=== PATIENT | male | born 1955 | race Caucasian/White ===

== ENCOUNTER → 2017-09-20 | Outpatient (CLI) | payer OTHER ==
--- NOTE | 2017-09-21 15:28 | RADIOLOGY REPORT (SQ) ---
EXAM DESCRIPTION: CT CHEST WITH COMPLETED DATE/TIME: 09/20/2017 8:17 am REASON FOR STUDY: CHEST PAIN (R07.9), ABD PAIN (R10.9), PELVIC AND PERINEAL PAIN (R10.2) R07.9 CHES T PAIN, UNSPECIFIED R10.2 PELVIC AND PERINEAL PAIN R10.9 UNSPECIFIED ABDOMINAL PAIN COMPARISON: None. EXAM PARAMETERS: TECHNIQUE: CT scan of the chest performed using helical scanning technique with dyn amic intravenous contrast injection. Images reviewed with lung, soft tissue and bone windows. Recon structed coronal and sagittal MPR images reviewed. All images stored on PACS. All CT scanners at this facility use dose modulation, iterative reconstruction, and/or weight based d osing when appropriate to reduce radiation dose to as low as reasonably achievable (ALARA). [facility]: Dose Right [facility]: SureCare [facility]: Dose Right [facility]: Teradose 4D [facility]: [place] Anymoba CONTRAST TYPE AND DOSE: 74mL Isovue 370- low osmolar. RENAL FUNCTION: BUN 16 creatinine 0.77 RADIATION DOSE: mGy. LIMITATIONS: None. FINDINGS: LUNGS AND PLEURA: Significant centrilobular emphysematous changes. Pleural thickening med ially in the left apex with what appears to be associated scarring in the lung. HILAR AND MEDIASTINAL STRUCTURES: No identified masses or abnormal nodes. HEART AND VASCULAR STRUCTURES: No aneurysm or dissection. No central pulmonary emboli. No pericardi al effusion. HARDWARE: None. UPPER ABDOMEN: See report for CT of the abdomen and pelvis THYROID AND OTHER SOFT TISSUES: No masses. No adenopathy. BONES: No significant finding. OTHER: No other significant finding. IMPRESSION: 1. Centrilobular emphysematous changes. 2. There is a medial pleural thickening the left apex with associated scarring in the left upper lob e. Cannot entirely exclude neoplasm. Consider PET-CT for further evaluation. TECHNICAL DOCUMENTATION: JOB ID: [id number] [facility] [id number]: Final reports with documentation of one or more dose reduction techniques (e.g., Automate d exposure control, adjustment of the mA and/or kV according to patient size, use of iterative recons truction technique) 2010 [employer]- All Rights Reserved Reading location - IP/workstation name: [email or web address]
--- NOTE | 2017-09-21 15:29 | RADIOLOGY REPORT (SQ) ---
EXAM DESCRIPTION: CT ABD/PELVIS WITH IV ORAL COMPLETED DATE/TIME: 09/20/2017 8:17 am REASON FOR STUDY: CHEST PAIN (R07.9), ABD PAIN (R10.9), PELVIC AND PERINEAL PAIN (R10.2) R07.9 CHES T PAIN, UNSPECIFIED R10.2 PELVIC AND PERINEAL PAIN R10.9 UNSPECIFIED ABDOMINAL PAIN COMPARISON: None. EXAM PARAMETERS: TECHNIQUE: CT scan of the abdomen and pelvis performed with intravenous and oral co ntrast using helical scanning technique with dynamic intravenous contrast injection. Images reviewed with lung, soft tissue, and bone windows. Reconstructed coronal and sagittal MPR images reviewed. Del ayed images for evaluation of the urinary system also acquired. All images stored on PACS. All CT scanners at this facility use dose modulation, iterative reconstruction, and/or weight based d osing when appropriate to reduce radiation dose to as low as reasonably achievable (ALARA). [facility]: Dose Right [facility]: SureCare [facility]: Dose Right [facility]: Teradose 4D [facility]: Adify CONTRAST TYPE AND DOSE: 74mL Isovue 370- low osmolar. RENAL FUNCTION: BUN 16 creatinine 0.77 RADIATION DOSE: mGy. LIMITATIONS: None. FINDINGS: LOWER CHEST: See separate report for CT of the chest. LIVER: Normal size. No masses or dilated ducts. SPLEEN: Normal size. No focal lesions. PANCREAS: No masses. No significant calcifications. No adjacent inflammation or peripancreatic fluid collections. Pancreatic duct not dilated. GALLBLADDER: No identified stones by CT criteria. No inflammatory changes to suggest cholecystitis. ADRENAL GLANDS: No significant masses or asymmetry. RIGHT KIDNEY AND URETER: No solid masses. No significant calcifications. No hydronephrosis or hyd roureter. LEFT KIDNEY AND URETER: No solid masses. No significant calcifications. No hydronephrosis or hydr oureter. AORTA AND VESSELS: No aneurysm. No dissection. Renal arteries, SMA, celiac without stenosis. RETROPERITONEUM: No retroperitoneal adenopathy, hemorrhage or masses. BOWEL AND PERITONEAL CAVITY: No obstruction. No visualized masses. No free fluid. No inflammatory ch anges or thickening of bowel wall. APPENDIX: Normal. PELVIS: No significant masses. Normal bladder. No free fluid. ABDOMINAL WALL: No masses. No hernias. BONES: No significant or acute findings. OTHER: No other significant finding. IMPRESSION: NO SIGNIFICANT OR ACUTE FINDINGS IN THE ABDOMEN OR PELVIS. TECHNICAL DOCUMENTATION: JOB ID: [id number] [facility] [id number]: Final reports with documentation of one or more dose reduction techniques (e.g., Automate d exposure control, adjustment of the mA and/or kV according to patient size, use of iterative recons truction technique) 2010 [employer]- All Rights Reserved Reading location - IP/workstation name: [email or web address]
== END ==
LOC: RAD 07:30
PROVIDERS: ATTEND Internal Medicine
DX: R07.9 Chest pain, unspecified (principal); R10.2 Pelvic and perineal pain; R10.9 Unspecified abdominal pain
CPT/HCPCS: 71260; 74177

== ENCOUNTER → 2017-09-26 | Outpatient (CLI) | payer OTHER ==
--- NOTE | 2017-09-27 18:16 | RADIOLOGY REPORT (SQ) ---
EXAM DESCRIPTION: PET CT SKULL/THIGH COMPLETED DATE/TIME: 09/26/2017 7:15 pm REASON FOR STUDY: PULMONARY NODULE R91.1 SOLITARY PULMONARY NODULE COMPARISON: CT chest abdomen pelvis 09/20/2017 RADIONUCLIDE AND DOSE: 11 mCi F18 FDG The route of agent administration: Intravenous FASTING BLOOD SUGAR: 110 mg/dl CONTRAST TYPE AND DOSE: No CT contrast given. TECHNIQUE: Blood glucose level was verified. Above dose of FDG was injected intravenously. 2-D seg mented attenuation correction images were obtained from the base of the skull to the midthighs. Nonc ontrast CT images were obtained for attenuation correction and fusion with emission images. CT image s were performed without oral or intravenous contrast and are not sensitive for parenchymal lesions. A series of overlapping emission PET images were obtained. Images reviewed and manipulated at [facility] [employer] work station by the radiologist. Images stored on PACS. LIMITATIONS: None. FINDINGS: HEAD AND NECK: No areas of abnormal metabolic activity in the soft tissues of the head and neck. CHEST: In the medial left lung apex, left apical lung parenchymal scarring is present measuring about 1 cm in thickness. Along the inferior aspect of the bandlike scar, focal metabolic activity with NAVA V 2.1 is present. On axial image 80, a 1 x 0.8 cm aortopulmonary window lymph node is present with SUV 2.5. ABDOMEN AND PELVIS: No areas of abnormal metabolic activity in the abdomen or pelvis. Expected physi ologic activity is present in the genitourinary system and bowel. PROXIMAL LOWER EXTREMITIES: No areas of abnormal metabolic activity in the soft tissues of the lower extremities. BONES: No abnormal metabolic activity in the visualized skeleton. ADDITIONAL CT FINDINGS: Advanced changes of obstructive lung disease are present. OTHER: Liver background activity 2.2 SUV. Blood pool background activity 1.7 SUV IMPRESSION: Mild metabolic activity in the medial left lung apex bandlike scar. Malignancy could no t be excluded. 1 x 0.8 cm aortopulmonary window lymph node with mild metabolic activity. TECHNICAL DOCUMENTATION: JOB ID: [id number]- All Rights Reserved Reading location - IP/workstation name: [email or web address]
== END ==
LOC: RAD 17:23
PROVIDERS: ATTEND Internal Medicine
DX: R91.1 Solitary pulmonary nodule (principal)
CPT/HCPCS: 78815; A9552

== ENCOUNTER → 2017-10-01 | Outpatient (CLI) | payer OTHER ==
--- NOTE | 2017-10-01 10:33 | RADIOLOGY REPORT (SQ) ---
EXAM DESCRIPTION: NM MUGA REST COMPLETED DATE/TIME: 10/01/2017 10:24 am REASON FOR STUDY: Z13.6 ENCOUNTER FOR SCREENING FOR CARDIOVASCULAR DISORDERS Z13.6 ENCOUNTER FOR SC REENING FOR CARDIOVASCULAR DISORDERS C92.00 ACUTE MYELOBLASTIC LEUKEMIA, NOT HAVING ACHIEVED [place] COMPARISON: None. RADIONUCLIDE AND DOSE: 26.5 mCi technetium 99m labeled red blood cells The route of agent administration: Intravenous TECHNIQUE: Following administration of the radionuclide, gated images of the heart are obtained in t hree projections. Left ventricular functional analysis performed. LIMITATIONS: None. FINDINGS: LEFT VENTRICULAR FUNCTION: EJECTION FRACTION: 82%. END-DIASTOLIC VOLUME: 98 mL. END-SYSTOLIC VOLUME: 25 mL. WALL MOTION: No focal wall motion abnormalities. OTHER: No other significant finding. IMPRESSION: NORMAL CARDIAC MUGA STUDY. NORMAL LEFT VENTRICULAR FUNCTION WITH VALUES ABOVE. TECHNICAL DOCUMENTATION: JOB ID: [id number] [employer]- All Rights Reserved Reading location - IP/workstation name: [email or web address]
== END ==
LOC: RAD 08:26
PROVIDERS: ATTEND Internal Medicine
DX: C92.00 Acute myeloblastic leukemia, not having achieved remission (principal); Z13.6 Encounter for screening for cardiovascular disorders
CPT/HCPCS: 78472; A9560; Q9969

== ENCOUNTER → 2017-11-26 | Outpatient (CLI) | payer OTHER ==
--- NOTE | 2017-11-26 12:48 | RADIOLOGY REPORT (SQ) ---
EXAM DESCRIPTION: NM MUGA REST COMPLETED DATE/TIME: 11/26/2017 12:32 pm REASON FOR STUDY: ENCTR FOR F/U EXAM AFTER COMPLETED TX FOR MALIGNANT NEOPLASM (Z08) C92.00 ACUTE M YELOBLASTIC LEUKEMIA, NOT HAVING ACHIEVED [place] COMPARISON: CT chest 09/20/2017 RADIONUCLIDE AND DOSE: 25.6 mCi technetium 99m labeled red blood cells The route of agent administration: Intravenous TECHNIQUE: Following administration of the radionuclide, gated images of the heart are obtained in t hree projections. Left ventricular functional analysis performed. LIMITATIONS: None. FINDINGS: LEFT VENTRICULAR FUNCTION: EJECTION FRACTION: 61%. END-DIASTOLIC VOLUME: 90 mL. END-SYSTOLIC VOLUME: 30 mL. WALL MOTION: No focal wall motion abnormalities. OTHER: No other significant finding. IMPRESSION: NORMAL CARDIAC MUGA STUDY. NORMAL LEFT VENTRICULAR ejection fraction of 61% TECHNICAL DOCUMENTATION: JOB ID: [id number] [employer]- All Rights Reserved Reading location - IP/workstation name: [email or web address]
== END ==
LOC: RAD 10:42
PROVIDERS: ATTEND Physician Assistant Medical
DX: Z08 Encounter for follow-up examination after completed treatment for malignant neoplasm (principal); C92.00 Acute myeloblastic leukemia, not having achieved remission
CPT/HCPCS: 78472; A9560

== ENCOUNTER 2017-12-07 12:19 | Outpatient (CLI) | payer OTHER ==
[~2017-12-07 12:19] MED LIST: PEGFILGRASTIM INJ 6 MG/0.6 ML DISP.SYRIN SUBCUT PRN
[2017-12-07 12:40] VITALS: BP 134/80
== END 2017-12-07 13:15 | disposition home or self-care (01) ==
LOC: II 12:19 → 5TH 12:22 → II 13:15
PROVIDERS: ATTEND Internal Medicine
PROC: 3E013GC Introduction of Other Therapeutic Substance into Subcutaneous Tissue, Percutaneous Approach (ICD-10-PCS; principal; 2017-12-07)
DX: Z76.89 Persons encountering health services in other specified circumstances (principal); C92.00 Acute myeloblastic leukemia, not having achieved remission; D70.1 Agranulocytosis secondary to cancer chemotherapy
CPT/HCPCS: 96372; J2505

== ENCOUNTER 2017-12-08 13:22 | Emergency (ER) | payer OTHER ==
[2017-12-08] MEDS ORDERED: NORMAL SALINE 250 ML IV PRN (14:21)
[2017-12-08] MEDS ORDERED: DIPHENHYDRAMINE HCL 50 MG/ML VIAL IV ONE (14:21)
--- NOTE | 2017-12-08 14:34 | ER Document Report ---
ED Allergic Reaction - General Chief Complaint: Allergic Reaction Stated Complaint: TRANSFUSION REACTION Time Seen by Provider: 12/08/17 13:39 Notes: This is a 62-year-old male. History of acute myelogenous leukemia. Has received chemotherapy. Platelet counts have dropped. Was scheduled to have transfusion today. Platelets were being transfused when patient developed itching and a rash on his abdomen and his blood pressure plummeted. A rapid response was called in the hospital. Emergency treatment was begun with Decadron, Benadryl and Pepcid as well as fluids. Patient was brought to the emergency department for further evaluation. On arrival to the emergency department patient was feeling fine. The rash had dissipated. No complaints currently. TRAVEL OUTSIDE OF THE [place] IN LAST 30 DAYS: No - HPI Onset: Just prior to arrival Onset/Duration: Sudden - Related Data Allergies/Adverse Reactions: No Known Allergies Allergy (Unverified 12/06/17 12:08) Past Medical History - General Information source: Patient - Social History Smoking Status: Current Every Day Smoker Cigarette use (# per day): Yes Frequency of alcohol use: None Drug Abuse: None Lives with: Family Family History: Reviewed & Not Pertinent Patient has suicidal ideation: No Patient has homicidal ideation: No - Medical History Notes: Acute myelogenous leukemia Renal/ Medical History: Denies: Hx Peritoneal Dialysis - Immunizations Hx Diphtheria, Pertussis, Tetanus Vaccination: No Review of Systems - Review of Systems Constitutional: denies: Fever, Malaise, Weakness EENT: denies: Blurred vision, Double vision, Ear pain Cardiovascular: Other - Transient hypotension. denies: Chest pain, Palpitations , Heart racing Respiratory: denies: Cough, Hurts to breathe, Short of breath Gastrointestinal: denies: Abdominal pain, Diarrhea, Nausea Musculoskeletal: denies: Back pain, Joint pain, Muscle pain Skin: Rash. denies: Dryness, Lesions Hematologic/Lymphatic: Other - History of AML Neurological/Psychological: No symptoms reported. denies: Confusion, Weakness, Numbness Physical Exam - Vital signs Vitals: Resp BP 19 105/75 12/08/17 13:55 12/08/17 13:55 Interpretation: Normal - General General appearance: Appears well, Alert - HEENT Head: Normocephalic, Atraumatic Eyes: Normal Pupils: PERRL - Respiratory Respiratory status: No respiratory distress Chest status: Nontender Breath sounds: Normal Chest palpation: Normal - Cardiovascular Rhythm: Regular Heart sounds: Normal auscultation Murmur: No - Abdominal Inspection: Normal Distension: No distension Bowel sounds: Normal Tenderness: Nontender Organomegaly: No organomegaly - Extremities General upper extremity: Normal inspection, Nontender, Normal color, Normal ROM , Normal temperature General lower extremity: Normal inspection, Nontender, Normal color, Normal ROM , Normal temperature. No: Alessandra's sign - Neurological Neuro grossly intact: Yes Cognition: Normal Orientation: AAOx4 [place] Coma Scale Eye Opening: Spontaneous Antonio Coma Scale Verbal: Oriented Antonio Coma Scale Motor: Obeys Commands [place] Coma Scale Total: 15 Speech: Normal Motor strength normal: LUE, RUE, LLE, RLE Sensory: Normal - Skin Skin Temperature: Warm Skin Moisture: Dry Skin Color: Normal, Other - No obvious rash at this time. Course - Re-evaluation Re-evalutation: 12/08/17 14:36 Patient is well-appearing at this time. Consult with patient's oncologist, Dr. Chau. Patient received the beginning of a platelet transfusion and had allergic reaction. Received Decadron, Benadryl and Pepcid as well as IV fluids after reported transient hypotension. Patient's oncologist spoke with specialist in [place] at [facility] who recommends going ahead and proceeding with the normal transfusion as this appears to be more of an allergic reaction not a transfusion reaction. Patient is comfortable with this plan. Based on the oncologists verbal orders I am ordering the platelets. Will give some more Benadryl prior to transfusion at this time as well. 12/08/17 15:54 Patient pending transfusion at this time at time of signout at [address] Bettencourt made aware. If patient tolerates transfusion well stable for discharge after transfusion is complete - Vital Signs Vital signs: Temp Pulse Resp BP Pulse Ox 19 105/75 12/08/17 14:00 12/08/17 13:55 Discharge - Discharge Clinical Impression: Thrombocytopenia Condition: Good Disposition: HOME, SELF-CARE Instructions: Thrombocytopenia ([facility]) Additional Instructions: You have received a platelet transfusion today. During the first unit of platelets that were being transfused it appears she may have had an allergic reaction to something. Medications were given to stop that allergic reaction. Further transfusion was performed on the emergency department at the request of your oncologist. In the event that you develop any symptoms of concern such as fever, abnormal rash, difficulty breathing, swelling of the mouth or tongue or any other concerns please return immediately. Please follow-up with your oncology team as scheduled or as needed. Referrals: JUSTIN HYMAN MD [Primary Care Provider] - Follow up as needed
--- NOTE | 2017-12-08 15:13 | EKG REPORT ---
SEVERITY:- NORMAL ECG - SINUS RHYTHM : Confirmed by: Margret Day MD 08-Dec-2017 15:12:39
[2017-12-08 17:11] VITALS: BP 119/72
== END 2017-12-08 17:52 | disposition home or self-care (01) ==
LOC: ER 13:22
DX: D69.6 Thrombocytopenia, unspecified (principal); C92.00 Acute myeloblastic leukemia, not having achieved remission; I95.9 Hypotension, unspecified; F17.210 Nicotine dependence, cigarettes, uncomplicated
CPT/HCPCS: 93005; 99285; 96374; 86900; 86901; 36415; 36430; 93010; P9035; J1200

== ENCOUNTER 2017-12-14 00:01 | Inpatient (IN) | payer OTHER ==
[2017-12-14] MEDS ORDERED: ACETAMINOPHEN 325 MG TABLET PO ONE (00:29)
[2017-12-14] MEDS ORDERED: MORPHINE SULFATE 10 MG/ML INJ IV ONE (00:30)
[2017-12-14] MEDS ORDERED: ONDANSETRON HCL INJ/PF 4 MG/2 ML SDV IV ONE (00:30)
--- NOTE | 2017-12-14 00:30 | ER Document Report ---
ED Fever - General Chief Complaint: Fever Stated Complaint: FEVER Time Seen by Provider: 12/14/17 00:19 Notes: Patient is a 62-year-old male with a history of acute myeloid leukemia that comes emergency department for chief complaint of fever, he states fever was noted at about 7 PM at 100.9. He has a mildly sore throat and he also is complaining of some intermittent upper abdominal pain. He denies shortness of breath, cough, nausea or vomiting, specific flank pain. He is currently undergoing chemotherapy with [facility] and infusions for platelets with local oncology Dr. Rouse. He denies any other medical history. He is on prophylaxis with Levaquin, Valtrex, and antifungal which he is uncertain of the name at this time. TRAVEL OUTSIDE OF THE [place] IN LAST 30 DAYS: No - Related Data Allergies/Adverse Reactions: No Known Allergies Allergy (Unverified 12/06/17 12:08) Past Medical History - General Information source: Patient - Social History Smoking Status: Never Smoker Drug Abuse: None Lives with: Spouse/Significant other Family History: Reviewed & Not Pertinent Patient has suicidal ideation: No Patient has homicidal ideation: No Renal/ Medical History: Denies: Hx Peritoneal Dialysis Malignancy Medical History: Reports Hx Leukemia - Acute myeloid leukemia - Immunizations Hx Diphtheria, Pertussis, Tetanus Vaccination: Yes Review of Systems - Review of Systems Constitutional: See HPI EENT: See HPI Cardiovascular: No symptoms reported Respiratory: No symptoms reported Gastrointestinal: See HPI Genitourinary: No symptoms reported Male Genitourinary: No symptoms reported Musculoskeletal: No symptoms reported Skin: No symptoms reported Hematologic/Lymphatic: No symptoms reported Neurological/Psychological: No symptoms reported Physical Exam - Vital signs Vitals: Temp 100.1 F 12/14/17 00:02 - Notes Notes: GENERAL: Alert, interacts well. No acute distress. HEAD: Normocephalic, atraumatic. EYES: Pupils equal, round, and reactive to light. Extraocular movements intact. ENT: Oral mucosa moist, tongue midline. Oral pharyngeal exam unremarkable. NECK: Full range of motion. Supple. Trachea midline. No noted adenopathy. LUNGS: Clear to auscultation bilaterally, no wheezes, rales, or rhonchi. No respiratory distress. HEART: Tachycardia with normal rhythm, no murmur ABDOMEN: Minimal tenderness in the epigastric region, remaining abdomen is unremarkable. Non-distended. Bowel sounds present in all 4 quadrants. EXTREMITIES: Moves all 4 extremities spontaneously. No edema, normal radial and dorsalis pedis pulses bilaterally. No cyanosis. BACK: no cervical, thoracic, lumbar midline tenderness. No saddle anesthesia, normal distal neurovascular exam. NEUROLOGICAL: Alert and oriented x3. Normal speech. [cranial nerves II through XII grossly intact]. PSYCH: Normal affect, normal mood. SKIN: Warm, dry, normal turgor. No rashes or lesions noted. Course - Re-evaluation Re-evalutation: Patient is not in any distress on exam, he is alert and talkative, tachycardia noted but no hypotension. Temperature 100.1. Minimal tenderness in the abdomen , no respiratory distress, unremarkable physical examination otherwise. Chemistry generally unremarkable, urinalysis unremarkable, chest x-ray unremarkable, strep is negative, cultures pending. CBC finally resulted, shows leukopenia with neutropenia. Platelets of 5. Previous platelet count was 4. No current bleeding on exam. Discussed with Dr. Burch. 12/14/17 02:[address] Santiago, on-call for patient's oncologist, she does recommend plateletpheresis along with imipenem broad-spectrum antibiotics pending growing blood cultures. She does recommend admission. Requests consult for Dr. Rouse be placed. Spoke with hospitalist, Dr. Hoff, patient will be admitted to telemetry full admission. Patient states agreement. 12/14/17 02:50 We do not have any irradiated platelets available at this time, will need leuko- reduced platelets. Spoke to blood bank. Possibly will not have them until tomorrow. I called and spoke with Dr. Santiago again, she does not recommend patient receive leuko-reduced at this time, she recommends patient wait and then receive the irradiated platelets even if he has to wait until tomorrow. I called blood bank back and requested and confirmed this. - Vital Signs Vital signs: Temp Pulse Resp BP Pulse Ox 98.6 F 21 H 105/68 96 12/14/17 03:23 12/14/17 03:01 12/14/17 03:00 12/14/17 03:01 - Laboratory Result Diagrams: 12/14/17 00:32 12/14/17 00:32 Laboratory results interpreted by me: 12/14/17 12/14/17 00:32 00:32 WBC 0.3 L* RBC 3.19 L Hgb 10.2 L Hct 27.9 L MCHC 36.3 H RDW 16.8 H Plt Count 5 L* Seg Neuts % (Manual) 0 L Lymphocytes % (Manual) 100 H Monocytes % (Manual) 0 L Abs Neuts (Manual) 0.0 L Abs Lymphs (Manual) 0.3 L Abs Monocytes (Manual) 0.0 L BUN 25 H Glucose 112 H Total Protein 6.2 L Discharge - Discharge Clinical Impression: Thrombocytopenia Fever Qualifiers: Fever type: unspecified Qualified Code(s): R50.9 - Fever, unspecified Neutropenia Qualifiers: Neutropenia type: unspecified Qualified Code(s): D70.9 - Neutropenia, unspecified Condition: Stable Disposition: ADMITTED INPATIENT Admitting Provider: Hospitalist Unit Admitted: Telemetry
--- NOTE | 2017-12-14 00:54 | RADIOLOGY REPORT (SQ) ---
EXAM DESCRIPTION: XR CHEST 1 VIEW COMPLETED DATE/TME: 12/14/2017 00:27 CLINICAL HISTORY: 62 years Male, fever COMPARISON: None. NUMBER OF VIEWS/TECHNIQUE: 1/AP FINDINGS: Increased lung volume, clear parenchyma, normal cardiac silhouette, and intact bony thorax. Right jugular central line tip at the cavoatrial junction. IMPRESSION: No acute cardiopulmonary findings.
[2017-12-14 01:06] LABS: HEMATOCRIT 27.9 % (37.9-51.0); HEMOGLOBIN 10.2 g/dL (13.5-17.0); MEAN CORPUSCULAR HEMOGLOBIN 31.9 pg (27.0-33.4); MEAN CORPUSCULAR HGB CONC 36.3 g/dL (32.0-36.0); MEAN CORPUSCULAR VOLUME 88 fl (80-97); RED BLOOD COUNT 3.19 10^6/uL (4.35-5.55); RED CELL DISTRIBUTION WIDTH 16.8 % (11.5-14.0)
[2017-12-14 01:07] LABS: VENOUS BLOOD BASE EXCESS 0.8 mmol/L; VENOUS BLOOD HCO3 25.9 mmol/L (20-32); VENOUS BLOOD PCO2 43.5 mmHg (35-63); VENOUS BLOOD PH 7.39 (7.30-7.42)
[2017-12-14 01:08] LABS: INTERNATIONAL RATION (INR) 0.92; PROTHROMBIN TIME 12.8 SEC (11.4-15.4)
[2017-12-14 01:16] LABS: ALANINE AMINOTRANSFERASE 34 U/L (21-72); ALBUMIN 3.6 g/dL (3.5-5.0); ALKALINE PHOSPHATASE 64 U/L (38-126); ANION GAP 12 (5-19); ASPARTATE AMINO TRANSFERASE 35 U/L (17-59); BILIRUBIN,DIRECT 0.2 mg/dL (0.0-0.4); BILIRUBIN,TOTAL 0.4 mg/dL (0.2-1.3); BLOOD UREA NITROGEN 25 mg/dL (7-20); CARBON DIOXIDE 27 mmol/L (22-30); CHLORIDE 99 mmol/L (98-107); GLUCOSE 112 mg/dL (75-110); POTASSIUM 4.1 mmol/L (3.6-5.0); SODIUM 137.6 mmol/L (137-145); TOTAL PROTEIN 6.2 g/dL (6.3-8.2)
[2017-12-14 01:32] LABS: WHITE BLOOD COUNT 0.3 10^3/uL (4.0-10.5)
[2017-12-14 01:33] LABS: PLATELET COUNT 5 10^3/uL (150-450)
[2017-12-14 01:35] LABS: ABSOLUTE LYMPHOCYTES# (MANUAL) 0.3 10^3/uL (0.5-4.7); BASOPHILS % (MANUAL) 0 % (0-2); EOSINOPHILS % (MANUAL) 0 % (0-6); LYMPHOCYTES % (MANUAL) 100 % (13-45); MONOCYTES % (MANUAL) 0 % (3-13); SEGMENTED NEUTROPHILS % (MAN) 0 % (42-78); TOTAL CELLS COUNTED 50
[2017-12-14 01:36] LABS: APPEARANCE,URINE CLEAR; BILIRUBIN,URINE NEGATIVE (NEGATIVE); COLOR,URINE YELLOW; GLUCOSE, URINE NEGATIVE (NEGATIVE); KETONES,URINE NEGATIVE (NEGATIVE); LEUKOCYTE ESTERASE,URINE NEGATIVE (NEGATIVE); NITRITE,URINE NEGATIVE (NEGATIVE); PROTEIN,URINE NEGATIVE (NEGATIVE); URINE SPECIFIC GRAVITY 1.014; UROBILINOGEN,URINE NEGATIVE mg/dL (<2.0)
[2017-12-14 01:37] LABS: ANISOCYTOSIS 1+; HYPOCHROMASIA 1+
[2017-12-14 01:38] LABS: PLATELET COMMENT DECREASED; SPHEROCYTES SLIGHT
[2017-12-14] MEDS ORDERED: PIPERACILLIN/TAZOBACTAM 3.375 GM VIAL IV ONE (01:52)
--- NOTE | 2017-12-14 02:07 | RADIOLOGY REPORT (SQ) ---
EXAM DESCRIPTION: US ABDOMEN LIMITED COMPLETED DATE/TME: 12/14/2017 00:26 CLINICAL HISTORY: 62 years Male, fever, upper abd pain Comparison: None. LIMITATIONS: Bowel gas artifact. FINDINGS: Nonmobile 0.2 cm focal echogenicity of the anterior gallbladder wall likely due to a benign gallbladder polyp or adherent stone, 0.3 cm gallbladder wall thickness, negative sonographic Aviles's test, liver, a 0.3-cm diameter common bile duct, no intrahepatic ductal dilation, 12-cm right kidney, partially obscured pancreas, visualized vasculature/abdominal aorta, and no significant ascites appear otherwise unremarkable. IMPRESSION: No acute findings. Nonmobile 0.2 cm focal echogenicity of the gallbladder wall likely due to a benign gallbladder polyp or adherent stone.
[2017-12-14] MEDS ORDERED: IMIPENEM/CILASTATIN SODIUM INJ 500 MG VIAL IV ONE (02:09)
[2017-12-14] MEDS ORDERED: NORMAL SALINE 250 ML IV PRN ×2 (02:10)
[2017-12-14] MEDS ORDERED: IPRATROPIUM/ALBUTEROL 0.5-2.5 MG/3 ML AMPUL NEB PRN (02:23)
[2017-12-14] MEDS ORDERED: ACETAMINOPHEN 325 MG TABLET PO PRN ×2 (02:23→05:00)
[2017-12-14] MEDS ORDERED: ONDANSETRON HCL INJ/PF 4 MG/2 ML SDV IV PRN (02:23)
[2017-12-14] MEDS ORDERED: VANCOMYCIN HCL 0 MG in DEXTROSE 5%-WATER 250 ML IV NR (02:45)
[2017-12-14] MEDS ORDERED: VANCOMYCIN HCL INJ 1000 MG VIAL IV PRN (03:28)
[2017-12-14] MEDS ORDERED: VANCOMYCIN HCL 1,000 MG in DEXTROSE 5%-WATER 250 ML IV ONE (03:30)
[2017-12-14] MEDS ORDERED: VANCOMYCIN HCL INJ 1000 MG VIAL ONE (04:13)
[2017-12-14] MEDS ORDERED: OXYCODONE-ACETAMINOPHEN 5-325 MG TABLET PO PRN (04:44)
[2017-12-14] MEDS ORDERED: DIPHENHYDRAMINE HCL 25 MG CAPSULE PO PRN (05:00)
--- NOTE | 2017-12-14 07:01 | PDOC H&P ---
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 Patient had a temperature of 100.9F at home. Patient denies chest pain or shortness of breath or cough or nausea vomiting however he reported some left upper abdominal discomfort and sore throat. Patient denies urinary symptoms or headache or joint pain or skin rash or bleeding. Patient currently follows up with local oncologist Dr. Falcon. Patient is scheduled for platelet transfusion tomorrow morning. On arrival to emergency room his temperature was 100.1F and he was slightly tachycardic otherwise rest of the vitals are stable. His laboratory workup showed white count of 0.3 with hemoglobin of 10.2 however platelet count was only 5. Rest of the labs were unremarkable. Chest x-ray was unremarkable. Abdominal ultrasound was unremarkable. Patient was given imipenem in the emergency room. ER physician consulted Dr. Falcon who recommended antibiotic and platelet transfusion. Past Medical History Malignancy Medical History: Reports: Leukemia - Acute myeloid leukemia Hematology: Reports: Anemia, Bleeding Tendencies Social History Information Source: Patient Lives with: Spouse/Significant other Smoking Status: Current Every Day Smoker Frequency of Alcohol Use: Occasional Hx Recreational Drug Use: No Drugs: None Family History Family History: Reviewed & Not Pertinent Parental Family History Reviewed: No Children Family History Reviewed: No Sibling(s) Family History Reviewed.: No Medication/Allergy Home Medications: Levofloxacin [Levaquin 500 mg Tablet] 500 mg PO DAILY 12/07/17 Valacyclovir HCl [Valtrex 500 mg Tablet] 1 tab PO DAILY 12/07/17 Allergies/Adverse Reactions: No Known Allergies Allergy (Unverified 12/06/17 12:08) Review of Systems All systems: reviewed and no additional remarkable complaints except as stated Physical Exam Vital Signs: Temp Pulse Resp BP Pulse Ox 98.7 F 99 18 110/63 100 12/14/17 03:44 12/14/17 03:44 12/14/17 03:44 12/14/17 03:44 12/14/17 03:44 General appearance: PRESENT: no acute distress, cooperative, well-developed, well-nourished Head exam: PRESENT: atraumatic, normocephalic Eye exam: ABSENT: conjunctival injection, conjunctiva pink, conjunctiva pale, EOMI, nystagmus, periorbital swelling, PERRLA, scleral icterus, other Ear exam: ABSENT: bleeding, drainage, normal external ear exam, TM's normal bilaterally, other Throat exam: ABSENT: tonsillar exudate, tonsillogmegaly Neck exam: ABSENT: carotid bruit, JVD, lymphadenopathy, thyromegaly Respiratory exam: PRESENT: clear to auscultation henri. ABSENT: crackles, rhonchi , wheezes Cardiovascular exam: PRESENT: RRR, +S1, +S2. ABSENT: gallop, rubs, systolic murmur GI/Abdominal exam: PRESENT: normal bowel sounds, soft. ABSENT: organolmegaly, tenderness Rectal exam: PRESENT: deferred Gentrourinary exam: ABSENT: ecchymosis, erythema, lacerations, lesions, scrotal swelling, testicular tenderness, urethral discharge, indwelling catheter, other Musculoskeletal exam: PRESENT: ambulatory Neurological exam: PRESENT: alert, altered, awake, oriented to person, oriented to place, oriented to time, CN II-XII grossly intact. ABSENT: motor sensory deficit Psychiatric exam: ABSENT: homicidal ideation, suicidal ideation Skin exam: ABSENT: petechiae, rash Results Laboratory Results: 12/14/17 02:50 Blood Type O NEGATIVE Antibody Screen NEGATIVE Labs reviewed Impressions: Abdomen Ultrasound 12/14/17 00:26 IMPRESSION: No acute findings. Nonmobile 0.2 cm focal echogenicity of the gallbladder wall likely due to a benign gallbladder polyp or adherent stone. Chest X-Ray 12/14/17 00:27 IMPRESSION: No acute cardiopulmonary findings. Status: Image reviewed by me Assessment & Plan - Diagnosis (1) Fever Qualifiers: Fever type: unspecified Qualified Code(s): R50.9 - Fever, unspecified Is this a current diagnosis for this admission?: Yes Plan: Fever with neutropenia in a patient who is receiving chemotherapy. Source is unknown. Patient is not septic. We will continue broad-spectrum antibiotics including vancomycin and imipenem. Follow-up blood culture. (2) Neutropenia Qualifiers: Neutropenia type: unspecified Qualified Code(s): D70.9 - Neutropenia, unspecified Is this a current diagnosis for this admission?: Yes Plan: Patient will be placed on neutropenic precautions. Continue antibiotic. Consult oncology. (3) Thrombocytopenia Is this a current diagnosis for this admission?: Yes Plan: No evidence of bleeding or petechiae. Will transfuse 1 unit of platelets. - Time Time Spent: 30 to 50 Minutes - Inpatient Certification Based on my medical assessment, after consideration of the patient's comorbidities, presenting symptoms, or acuity I expect that the services needed warrant INPATIENT care.: Yes I certify that my determination is in accordance with my understanding of Medicare's requirements for reasonable and necessary INPATIENT services [42 CFR 412.3e].: Yes Medical Necessity: Need For IV Fluids, Need for IV Antibiotics
--- NOTE | 2017-12-14 08:42 | PDOC CONSULTATION ---
Consultation Consult Date: 12/14/17 Attending physician:: LASHAWN VASQUEZ Consult reason:: Patient with good risk AML, status post consolidation treatment #1, here with neutropenic fever, severe thrombocytopenia History of Present Illness Admission Date/PCP: 12/14/17 02:34 JUSTIN HYMAN MD Patient complains of: Fever, weakness History of Present Illness: GERDA NICK is a 62 year old male with known history of good risk AML, status post consolidation chemotherapy #1 at [facility], we have been monitoring him over the last 7 days since discharge from [facility], and he has had severe thrombocytopenia. He received his first transfusion of leuko-reduced, irradiated platelets last week and did have what seemed to be a reaction, ultimately we felt this was probably related to contaminants in the platelet bag , but we did premedicate him for another course of platelets that was given a few days ago and that was well-tolerated, we had to give him dexamethasone, Benadryl and Tylenol. But it has not caused a distinct increase in platelets as of yet. Over the last 24 hours prior to admission he began having fevers, ultimately was admitted to [facility] because of neutropenic fever. He has been appropriately started on imipenem and vancomycin. He is planned for platelet transfusion with irradiated, leuko-reduced platelets, however that is planned to be delivered this evening. He is not actively bleeding, so we decided on waiting on the platelets. Past Medical History Malignancy Medical History: Reports: Leukemia - Acute myeloid leukemia Hematology: Reports: Anemia, Bleeding Tendencies Past Surgical History Past Surgical History: Reports: Other - Bone marrow biopsy Social History Information Source: Patient Lives with: Spouse/Significant other Smoking Status: Current Every Day Smoker Frequency of Alcohol Use: Occasional Hx Recreational Drug Use: No Drugs: None - Advance Directive Resuscitation Status: Full Code Family History Family History: Reviewed & Not Pertinent Parental Family History Reviewed: Yes Children Family History Reviewed: Yes Sibling(s) Family History Reviewed.: Yes Medication/Allergy Home Medications: Levofloxacin [Levaquin 500 mg Tablet] 500 mg PO DAILY 12/07/17 Valacyclovir HCl [Valtrex 500 mg Tablet] 500 mg PO DAILY 12/07/17 Cholecalciferol (Vitamin D3) [Vitamin D3 1000 Unit Tablet] 1,000 unit PO DAILY 12/14/17 Fluconazole [Diflucan 100 Mg Tablet] 200 mg PO DAILY 12/14/17 Allergies/Adverse Reactions: No Known Allergies Allergy (Unverified 12/06/17 12:08) Review of Systems Constitutional: ABSENT: chills, fever(s), headache(s), weight gain, weight loss Eyes: ABSENT: visual disturbances Ears: ABSENT: hearing changes Cardiovascular: ABSENT: chest pain, dyspnea on exertion, edema, orthropnea, palpitations Respiratory: ABSENT: cough, hemoptysis Gastrointestinal: ABSENT: abdominal pain, constipation, diarrhea, hematemesis, hematochezia, nausea, vomiting Genitourinary: ABSENT: dysuria, hematuria Musculoskeletal: ABSENT: joint swelling Integumentary: ABSENT: rash, wounds Neurological: ABSENT: abnormal gait, abnormal speech, confusion, dizziness, focal weakness, syncope Psychiatric: ABSENT: anxiety, depression, homidical ideation, suicidal ideation Endocrine: ABSENT: cold intolerance, heat intolerance, polydipsia, polyuria Hematologic/Lymphatic: ABSENT: easy bleeding, easy bruising Physical Exam Vital Signs: Temp Pulse Resp BP Pulse Ox 98.7 F 99 18 110/63 100 12/14/17 03:44 12/14/17 03:44 12/14/17 03:44 12/14/17 03:44 12/14/17 03:44 General appearance: PRESENT: no acute distress, well-developed, well-nourished Head exam: PRESENT: atraumatic, normocephalic Eye exam: PRESENT: conjunctiva pink, EOMI, PERRLA. ABSENT: scleral icterus Ear exam: PRESENT: normal external ear exam Mouth exam: PRESENT: moist, tongue midline Neck exam: ABSENT: carotid bruit, JVD, lymphadenopathy, thyromegaly Respiratory exam: PRESENT: clear to auscultation henri. ABSENT: rales, rhonchi, wheezes Cardiovascular exam: PRESENT: RRR. ABSENT: diastolic murmur, rubs, systolic murmur Pulses: PRESENT: normal dorsalis pedis pul Vascular exam: PRESENT: normal capillary refill GI/Abdominal exam: PRESENT: normal bowel sounds, soft. ABSENT: distended, guarding, mass, organolmegaly, rebound, tenderness Rectal exam: PRESENT: deferred Extremities exam: PRESENT: full ROM. ABSENT: calf tenderness, clubbing, pedal edema Neurological exam: PRESENT: alert, awake, oriented to person, oriented to place , oriented to time, oriented to situation, CN II-XII grossly intact. ABSENT: motor sensory deficit Psychiatric exam: PRESENT: appropriate affect, normal mood. ABSENT: homicidal ideation, suicidal ideation Skin exam: PRESENT: dry, intact, warm. ABSENT: cyanosis, rash Results Laboratory Results: 12/14/17 02:50 Blood Type O NEGATIVE Antibody Screen NEGATIVE Impressions: Abdomen Ultrasound 12/14/17 00:26 IMPRESSION: No acute findings. Nonmobile 0.2 cm focal echogenicity of the gallbladder wall likely due to a benign gallbladder polyp or adherent stone. Chest X-Ray 12/14/17 00:27 IMPRESSION: No acute cardiopulmonary findings. Assessment & Plan - Diagnosis (1) Neutropenic fever Is this a current diagnosis for this admission?: Yes Plan: Neutropenic fever, most likely organisms are gram-negative so we cover that with imipenem, although we needed vancomycin because he has had recent exposure to healthcare settings, continue with imipenem and vancomycin until cultures are negative for 48 hours, then we could discontinue the vancomycin. (2) Thrombocytopenia Is this a current diagnosis for this admission?: Yes Plan: Severe thrombocytopenia related to AML, and treatment, plan for leuko-reduced and irradiated platelets. (3) AML (acute myeloblastic leukemia) Qualifiers: Leukemia Active/Remission status: without remission Qualified Code(s): C92.00 - Acute myeloblastic leukemia, not having achieved remission Is this a current diagnosis for this admission?: Yes Plan: AML status post consolidation treatment #1 at [facility], will monitor. - Time Time Spent: Greater than 70 Minutes - Inpatient Certification Based on my medical assessment, after consideration of the patient's comorbidities, presenting symptoms, or acuity I expect that the services needed warrant INPATIENT care.: Yes I certify that my determination is in accordance with my understanding of Medicare's requirements for reasonable and necessary INPATIENT services [42 CFR 412.3e].: Yes Medical Necessity: Need for IV Antibiotics, Risk of Complication if Not Cared For in Hospital
--- NOTE | 2017-12-14 09:27 | EKG REPORT ---
SEVERITY:- BORDERLINE ECG - SINUS TACHYCARDIA PROBABLE LEFT ATRIAL ABNORMALITY : Confirmed by: Karina Alba 14-Dec-2017 09:27:05
[2017-12-14] MEDS: IMIPENEM/CILASTATIN SODIUM 500 MG in NORMAL SALINE 100 ML IV SCH ×3 (11:38→22:16)
[2017-12-14] MEDS: NICOTINE 14 MG/24 HR PATCH.TD24 TD SCH (11:38)
[2017-12-14] MEDS: DEXAMETHASONE SOD PHOSPHATE INJ 4 MG/1 ML VIAL IV PRN ×3 (13:46→23:17)
[2017-12-14] MEDS: DIPHENHYDRAMINE HCL 50 MG/ML VIAL IV PRN ×2 (13:47→23:18)
[2017-12-14] MEDS ORDERED: DIPHENHYDRAMINE HCL 25 MG CAPSULE ONE (14:28)
[2017-12-14] MEDS ORDERED: ACETAMINOPHEN 325 MG TABLET ONE (14:28)
[2017-12-14] MEDS ORDERED: DEXAMETHASONE SOD PHOSPHATE INJ 4 MG/1 ML VIAL IV ONE (14:37)
--- NOTE | 2017-12-14 15:27 | Progress Note ---
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 Overnight events, H&P, vital signs, labs, and orders were reviewed. The patient was briefly seen at bedside due to transfusion reaction. 1 - Neutropenic fever: Oncology is consulted. Appreciate Dr. Rouse's evaluation and expert direction. Blood, urine, throat cultures are pending. The patient was empirically placed on IV vancomycin and imipenem. TMax 100.9 2 - Thrombocytopenia: Severe thrombocytopenia related to AML. Patient has required platelet transfusions in the past; of note, the patient has previously had mild transfusion reactions requiring Benadryl and steroids. Therefore, Dr. Rouse has ordered Tylenol, dexamethasone, and Benadryl prior to transfusion. Plan to transfuse 2 units of leuko-reduced and irradiated platelets. 3- Neutropenia: Secondary to AML and post consolidation treatment #1 at [facility]. Patient is placed on protective precautions. 4- AML: Oncology is consulted; primary plan per Dr. Rouse. 5- Transfusion reaction: Pt developed acute respiratory distress and hives within 15 minutes of initiating the first unit of platelets. The patient was noted to become tachypneic with respiratory rate in the mid 30s, tachycardic with a heart rate of 135, blood pressure 110 over 60s, and hypoxia with a SPO2 of 89% on room air. He was placed on 2 L via nasal cannula. The patient had received 650 mg p.o. Tylenol, 25 mg IV Benadryl, and 4 mg IV dexamethasone prior to transfusion. He was ordered an additional 325 mg p.o. Tylenol, 25 mg p.o. Benadryl, and 4 mg IV dexamethasone once reaction was noted. Platelets were placed on held. Stat DuoNeb is ordered; will evaluate need for epinephrine following DuoNeb or if respiratory status acutely worsens. Stat chest x-ray is pending. Dr. Rouse was notified of transfusion reaction. He recommends discontinuing current PLT unit and attempting the other unit once patient has stabilized.
[2017-12-14] MEDS ORDERED: IPRATROPIUM/ALBUTEROL 0.5-2.5 MG/3 ML AMPUL NEB ONE (16:00)
--- NOTE | 2017-12-14 16:36 | RADIOLOGY REPORT (SQ) ---
EXAM DESCRIPTION: CHEST SINGLE VIEW COMPLETED DATE/TIME: 12/14/2017 4:24 pm REASON FOR STUDY: Difficulty breathing COMPARISON: 12/14/2017 EXAM PARAMETERS: NUMBER OF VIEWS: One view. TECHNIQUE: Single frontal radiographic view of the chest acquired. RADIATION DOSE: NA LIMITATIONS: None. FINDINGS: LUNGS AND PLEURA: The lungs are somewhat hyperexpanded. There is no infiltrate or effusio n. There is no mass. MEDIASTINUM AND HILAR STRUCTURES: No masses. Contour normal. HEART AND VASCULAR STRUCTURES: Heart normal in size. Normal vasculature. BONES: No acute findings. HARDWARE: Right internal jugular catheter remains in place. OTHER: No other significant finding. IMPRESSION: Hyperexpansion of the lungs may suggest air trapping. Is there history of asthma? TECHNICAL DOCUMENTATION: JOB ID: [id number] [employer]- All Rights Reserved Reading location - IP/workstation name: [email or web address]
[2017-12-14] MEDS: VANCOMYCIN HCL 1,000 MG in DEXTROSE 5%-WATER 250 ML IV SCH (19:00)
[2017-12-15 00:46] LABS: APPEARANCE,URINE CLEAR; BILIRUBIN,URINE NEGATIVE (NEGATIVE); COLOR,URINE YELLOW; GLUCOSE, URINE >=500 mg/dL (NEGATIVE); KETONES,URINE NEGATIVE (NEGATIVE); LEUKOCYTE ESTERASE,URINE NEGATIVE (NEGATIVE); NITRITE,URINE NEGATIVE (NEGATIVE); PROTEIN,URINE NEGATIVE (NEGATIVE); URINE SPECIFIC GRAVITY 1.013
[2017-12-15] MEDS: IMIPENEM/CILASTATIN SODIUM 500 MG in NORMAL SALINE 100 ML IV SCH ×4 (03:52→21:42)
[2017-12-15] MEDS: VANCOMYCIN HCL 1,000 MG in DEXTROSE 5%-WATER 250 ML IV SCH ×2 (05:14→19:09)
[2017-12-15 06:18] LABS: ABSOLUTE LYMPHOCYTES (AUTO) 0.2 10^3/uL (0.5-4.7); EOSINOPHILS % (AUTO) 0.3 % (0-6); LYMPHOCYTES % (AUTO) 81.7 % (13-45); MEAN CORPUSCULAR HEMOGLOBIN 31.3 pg (27.0-33.4); MEAN CORPUSCULAR HGB CONC 36.7 g/dL (32.0-36.0); MEAN CORPUSCULAR VOLUME 85 fl (80-97); MONOCYTES % (AUTO) 16.9 % (3-13); RED BLOOD COUNT 2.57 10^6/uL (4.35-5.55); RED CELL DISTRIBUTION WIDTH 16.6 % (11.5-14.0); SEGMENTED NEUTROPHILS % (AUTO) 1.1 % (42-78); TOTAL CELLS COUNTED % (AUTO) 100 %
[2017-12-15 06:47] LABS: HEMOGLOBIN 8.1 g/dL (13.5-17.0)
[2017-12-15 07:41] LABS: PLATELET ESTIMATE 8 10^3/uL (150-450)
[2017-12-15 07:45] LABS: ANISOCYTOSIS 1+; OVALOCYTES SLIGHT; PLATELET COMMENT DECREASED; POIKILOCYTOSIS SLIGHT
--- NOTE | 2017-12-15 08:22 | PDOC PROGRESS REPORT ---
Subjective Progress Note for:: 12/15/17 Subjective:: Yesterday patient was given first bag of irradiated, leuko-reduced platelets, 15 minutes into infusion patient began having hives, shortness of breath, redness. Of note, patient was given 4 mg of IV Dex, 25 mg of IV Benadryl, and 650 mg of Tylenol prior to infusion. We previously did that over the weekend, and he received the infusion with no issues. Of note he had a reaction to the first bag of platelets that he got approximately 4-5 days ago. Ultimately we gave 4 mg more of IV Dex, 25 more of IV Benadryl, and within about 1-2 hours his hives and redness defervesced, and shortness of breath improved. He was able to get the second bag of platelets without issue. Unfortunately the platelet count only went from 0140-4613. Of note, he has not had a good response from either irradiated or nonirradiated platelets, each time we have given him platelet transfusion and has not increased it to greater than 10,000. Therefore I discussed this case with Dr. Tiburcio Webster of the leukemia service, who has been following him as an outpatient. And he notes he now would qualify for HLA matched/single donor matched platelets. He may also require washed units. The third issue that is noted this morning is that he has 2 of 2 cultures noted for GPC's. One was from the Moctezuma catheter. We are awaiting the typing on this, hopefully this will be a contaminant but that needs to be dealt with as well. Because of these major issues, we have decided that he needs transfer to [facility] to a higher level care, the reason because they would have the ability to give HLA matched platelets and/or washed platelets at a much faster rate than we would, they would also need to deal with the Moctezuma catheter if the cultures end up being truly positive. I have begun the transfer process, hospitalist team will complete the process by finishing the summaries. In total I spent greater than 50 minutes in discussion and coordination of care. Reason For Visit: NEUTROPENIC FEVER Physical Exam Vital Signs: Temp Pulse Resp BP Pulse Ox 97.3 F 56 L 17 101/66 98 12/15/17 03:23 12/15/17 03:23 12/15/17 03:23 12/15/17 03:23 12/15/17 03:23 Intake & Output 12/14/17 12/15/17 12/16/17 06:59 06:59 06:59 Intake Total 1614 Balance 1614 Weight 152.1 kg General appearance: PRESENT: no acute distress, well-developed, well-nourished Head exam: PRESENT: atraumatic, normocephalic Eye exam: PRESENT: conjunctiva pink, EOMI, PERRLA. ABSENT: scleral icterus Ear exam: PRESENT: normal external ear exam Mouth exam: PRESENT: moist, tongue midline Neck exam: ABSENT: carotid bruit, JVD, lymphadenopathy, thyromegaly Respiratory exam: PRESENT: clear to auscultation henri. ABSENT: rales, rhonchi, wheezes Cardiovascular exam: PRESENT: RRR. ABSENT: diastolic murmur, rubs, systolic murmur Pulses: PRESENT: normal dorsalis pedis pul Vascular exam: PRESENT: normal capillary refill GI/Abdominal exam: PRESENT: normal bowel sounds, soft. ABSENT: distended, guarding, mass, organolmegaly, rebound, tenderness Rectal exam: PRESENT: deferred Extremities exam: PRESENT: full ROM. ABSENT: calf tenderness, clubbing, pedal edema Neurological exam: PRESENT: alert, awake, oriented to person, oriented to place , oriented to time, oriented to situation, CN II-XII grossly intact. ABSENT: motor sensory deficit Psychiatric exam: PRESENT: appropriate affect, normal mood. ABSENT: homicidal ideation, suicidal ideation Skin exam: PRESENT: dry, intact, warm. ABSENT: cyanosis, rash Results Laboratory Results: 12/15/17 05:18 12/14/17 12/14/17 12/15/17 02:50 22:17 05:18 WBC Cancelled RBC Cancelled Hgb Cancelled Hct Cancelled MCV Cancelled MCH Cancelled MCHC Cancelled RDW Cancelled Plt Count Cancelled Seg Neutrophils % Cancelled Lymphocytes % Cancelled Monocytes % Cancelled Eosinophils % Cancelled Basophils % Cancelled Absolute Neutrophils Cancelled Absolute Lymphocytes Cancelled Absolute Monocytes Cancelled Absolute Eosinophils Cancelled Absolute Basophils Cancelled Urine Color YELLOW Urine Appearance CLEAR Urine pH 6.0 Ur Specific [place] 1.013 Urine Protein NEGATIVE Urine Glucose (UA) >=500 H Urine Ketones NEGATIVE Urine Blood LARGE H Urine Nitrite NEGATIVE Ur Leukocyte Esterase NEGATIVE Urine WBC (Auto) 2 Urine RBC (Auto) 151 Blood Type O NEGATIVE Antibody Screen NEGATIVE 12/15/17 05:18 WBC 0.2 L* RBC 2.57 L Hgb 8.1 L D Hct 22.0 L MCV 85 MCH 31.3 MCHC 36.7 H RDW 16.6 H Plt Count Seg Neutrophils % 1.1 L Lymphocytes % 81.7 H Monocytes % 16.9 H Eosinophils % 0.3 Basophils % 0.0 Absolute Neutrophils 0.0 L Absolute Lymphocytes 0.2 L Absolute Monocytes 0.0 L Absolute Eosinophils 0.0 Absolute Basophils 0.0 Urine Color Urine Appearance Urine pH Ur Specific [place] Urine Protein Urine Glucose (UA) Urine Ketones Urine Blood Urine Nitrite Ur Leukocyte Esterase Urine WBC (Auto) Urine RBC (Auto) Blood Type Antibody Screen Impressions: Abdomen Ultrasound 12/14/17 00:26 IMPRESSION: No acute findings. Nonmobile 0.2 cm focal echogenicity of the gallbladder wall likely due to a benign gallbladder polyp or adherent stone. Chest X-Ray 12/14/17 00:27 IMPRESSION: No acute cardiopulmonary findings. Assessment & Plan - Diagnosis (1) Neutropenic fever Is this a current diagnosis for this admission?: Yes Plan: Positive sepsis noted now, continue with imipenem and vancomycin, this is appropriate coverage, await culture results, plan for transfer as above, continue with Moctezuma catheter use for now. (2) Thrombocytopenia Is this a current diagnosis for this admission?: Yes Plan: Patient will require HLA matched platelets, but this will take 3-4 days at least to get from the [place], therefore transfers planned. However if transfer is going to be delayed by 24-48 hours because of bed status, we will need to give him platelets that we have in-house. In that case I will give him Solu-Medrol 80 mg IV, Benadryl 50 mg IV, Pepcid 20 mg IV, and Tylenol 650 mg p.o. (3) AML (acute myeloblastic leukemia) Qualifiers: Leukemia Active/Remission status: without remission Qualified Code(s): C92.00 - Acute myeloblastic leukemia, not having achieved remission Is this a current diagnosis for this admission?: Yes Plan: Status post consolidation chemotherapy #1 last week. Continue to monitor counts , he is pancytopenic. (4) Anemia associated with chemotherapy Is this a current diagnosis for this admission?: Yes Plan: Chemo induced anemia, hold on transfusion for now unless hemoglobin gets under 7 or patient becomes symptomatic. - Time Time Spent with patient: 35 or more minutes Anticipated discharge[facility]: when bed available - Inpatient Certification Based on my medical assessment, after consideration of the patient's comorbidities, presenting symptoms, or acuity I expect that the services needed warrant INPATIENT care.: Yes I certify that my determination is in accordance with my understanding of Medicare's requirements for reasonable and necessary INPATIENT services [42 CFR 412.3e].: Yes Medical Necessity: Need for IV Antibiotics, Risk of Complication if Not Cared For in Hospital
[2017-12-15] MEDS: NICOTINE 14 MG/24 HR PATCH.TD24 TD SCH (09:08)
[2017-12-15] MEDS ORDERED: METHYLPREDNISOLONE INJ 125 MG/2 ML SDV IV PRN (15:06)
[2017-12-15] MEDS ORDERED: DIPHENHYDRAMINE HCL 50 MG/ML VIAL IV PRN (15:07)
[2017-12-15] MEDS ORDERED: ACETAMINOPHEN 325 MG TABLET PO PRN (15:08)
[2017-12-15] MEDS ORDERED: FAMOTIDINE INJ/PF 20 MG/2 ML SDV IV PRN (15:08)
[2017-12-15] MEDS: NORMAL SALINE 1000 ML 1,000 ML IV PRN (17:34)
--- NOTE | 2017-12-15 17:45 | PDOC TRANSFER SUMMARY ---
General Admission Date/PCP: 12/14/17 02:34 JUSTIN ROUSE MD Admission Date: 12/14/17 Transfer Date: 12/15/17 Accepting Facility: [facility] Accepting Physician: Dr. Luis Angel Barnett Resuscitation Status: Full Code - Transfer Diagnosis (1) Thrombocytopenia Is this a current diagnosis for this admission?: Yes (2) Neutropenic fever Is this a current diagnosis for this admission?: Yes (3) Transfusion reaction Is this a current diagnosis for this admission?: Yes (4) AML (acute myeloblastic leukemia) Is this a current diagnosis for this admission?: Yes (5) Anemia associated with chemotherapy Is this a current diagnosis for this admission?: Yes (6) Neutropenia Is this a current diagnosis for this admission?: Yes - Transfer Medications Home Medications: Levofloxacin [Levaquin 500 mg Tablet] 500 mg PO DAILY 12/07/17 Valacyclovir HCl [Valtrex 500 mg Tablet] 500 mg PO DAILY 12/07/17 Cholecalciferol (Vitamin D3) [Vitamin D3 1000 Unit Tablet] 1,000 unit PO DAILY 12/14/17 Fluconazole [Diflucan 100 Mg Tablet] 200 mg PO DAILY 12/14/17 Transfer Medications: Current Medications Acetaminophen (Tylenol 325 Mg Tablet) 650 mg PO Q4HP PRN PRN Reason: FEVER >101 Stop: 01/13/18 02:22 Last Admin: 12/14/17 11:40 Dose: 650 mg Acetaminophen (Tylenol 325 Mg Tablet) 650 mg PO .PRIOR TO TRANSFUSIO PRN PRN Reason: ONE HOUR PRIOR TO TRANSFUSION Stop: 12/15/17 23:59 Last Admin: 12/15/17 15:48 Dose: 650 mg Albuterol/Ipratropium (Duoneb 3 Ml Ampul) 3 ml NEB RTQ4HP PRN PRN Reason: SHORTNESS OF BREATH Stop: 01/13/18 02:22 Last Admin: 12/14/17 15:13 Dose: 3 ml Diphenhydramine HCl (Benadryl Inj 50 Mg/1 Ml Vial) 50 mg IV .PRIOR TO TRANSFUSIO PRN PRN Reason: THIS MED IS NOT "PRN" Stop: 12/15/17 23:59 Last Admin: 12/15/17 15:49 Dose: 50 mg Famotidine (Pepcid Inj/Pf 20 Mg/2 Ml Sdv) 20 mg IV .PRIOR TO TRANSFUSIO PRN PRN Reason: THIS MED IS NOT "PRN" Stop: 12/15/17 23:59 Last Admin: 12/15/17 15:48 Dose: 20 mg Heparin Sodium (Porcine) (Heparin Flush 10 Unit/Ml 5 Ml Disp.Syrg) 50 unit IV Q8 [facility] Stop: 01/13/18 13:59 Last Admin: 12/15/17 14:17 Dose: Not Given Heparin Sodium (Porcine) (Heparin Flush 10 Unit/Ml 5 Ml Disp.Syrg) 50 unit IV .AFTER EACH USE PRN PRN Reason: AFTER EACH INTERMITTENT USE Stop: 01/13/18 13:31 Sodium Chloride (Nacl 0.9% 1000 Ml Iv Soln) 1,000 mls @ 100 mls/hr IV CONTINUOUS PRN PRN Reason: THIS MED IS NOT "PRN" Stop: 01/13/18 02:22 Imipenem/Cilastatin Sodium 500 (mg/ Sodium Chloride) 100 mls @ 100 mls/hr IV Q6A [facility] Stop: 12/21/17 08:59 Last Infusion: 12/15/17 15:50 Dose: Infused Vancomycin HCl 1,000 mg/ (Dextrose) 250 mls @ 166.667 mls/hr IV Q12A [facility] Stop: 12/21/17 17:59 Last Infusion: 12/15/17 06:53 Dose: Infused Methylprednisolone Sodium Succinate (Solu-Medrol Inj/Pf 125 Mg/2 Ml Sdv) 80 mg IV .PRIOR TO TRANSFUSIO PRN PRN Reason: THIS MED IS NOT "PRN" Stop: 12/15/17 23:59 Last Admin: 12/15/17 15:48 Dose: 80 mg Nicotine (Nicoderm 14 Mg/24 Hr Transdermal Patch) 1 each TD DAILY [facility] Stop: 01/13/18 09:59 Last Admin: 12/15/17 09:08 Dose: 1 each Ondansetron HCl (Zofran Inj/Pf 4 Mg/2 Ml Sdv) 4 mg IV Q8HP PRN PRN Reason: FOR NAUSEA/VOMITING Stop: 01/13/18 02:22 Oxycodone/Acetaminophen (Percocet 5-325 Mg Tablet) 1 tab PO Q6HP PRN PRN Reason: PAIN Stop: 12/21/17 04:43 Last Admin: 12/14/17 05:36 Dose: 1 tab - Allergies Allergies/Adverse Reactions: No Known Allergies Allergy (Unverified 12/06/17 12:08) - Diet/Activity Discharge Diet: Other (Comments) - Neutropenic Discharge Activity: Activity As Tolerated Hospital Course Hospital Course: H&P: Per Dr. 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 Patient had a temperature of 100.9F at home. Patient denies chest pain or shortness of breath or cough or nausea vomiting however he reported some left upper abdominal discomfort and sore throat. Patient denies urinary symptoms or headache or joint pain or skin rash or bleeding. Patient currently follows up with local oncologist Dr. Falcon. Patient is scheduled for platelet transfusion tomorrow morning. On arrival to emergency room his temperature was 100.1F and he was slightly tachycardic otherwise rest of the vitals are stable. His laboratory workup showed white count of 0.3 with hemoglobin of 10.2 however platelet count was only 5. Rest of the labs were unremarkable. Chest x-ray was unremarkable. Abdominal ultrasound was unremarkable. Patient was given imipenem in the emergency room. ER physician consulted Dr. Falcon who recommended antibiotic and platelet transfusion. COURSE: The patient was admitted to the medical floor on continuous cardiac telemetry. He was empirically placed on IV vancomycin and imipenem. Oncology was consulted. Throat and urine cultures are negative. Both sets of blood cultures (4/4 bottles) are going gram-positive cocci; first set drawn from right forearm, second set drawn from right side port on [place] cath. T-max in the last 24 hours is 100.9; this was noted prior to first attempt to transfuse platelets. He was premedicated with p.o. Tylenol and once fever had resolved, he was administered IV dexamethasone, and IV Benadryl and then first unit of irradiated, leuko-reduced platelets was hung. Approximately 10 minutes into the transfusion, the patient experienced a transfusion reaction with pruritic hives, dyspnea, hypoxia to 89% on room air, diminished lung sounds, and tachycardia with heart rate in the 130s. Transfusion was held and he was immediately provided additional p.o. Benadryl and dexamethasone. His symptoms gradually resided in later that evening he was successfully transfused a different unit of radiated, leuko-reduced platelets. Despite successful transfusion, a.m. lab evaluation revealed that his platelet count had risen to 4000 to 8000. The patient was noted to have a downward trend in Hbg (10.2--> 8.1) and WBC (0.3--> 0.2). Patient has also developed gross hematuria. Dr. Rouse, oncologist, has discussed the patient's case with Dr. Tiburcio Webster of leukemia services at [facility], who has been following the patient as an outpatient. It was agreed that due to the patient's persistent thrombocytopenia despite PLT transfusions, multiple transfusion reactions to irradiated, leuko-reduced platelets (2 out of 4 transfusions), and neutropenic fever with 2 out of 2 culture sets positive for gram-positive cocci. Both providers assert that the need for HLA matched platelets and/or washed platelets faster than is available at [facility], as well as, available services to manage potential [place] catheter contamination warranted transfer to a tertiary care center. Dr. Rouse facilitated the transfer; Dr. Alba Barnett at [facility] has graciously agreed to accept this patient. Physical Exam Vital Signs: Temp Pulse Resp BP Pulse Ox 98.4 F 89 16 124/66 98 12/15/17 16:10 12/15/17 17:06 12/15/17 17:06 12/15/17 16:10 12/15/17 17:06 Intake & Output 12/14/17 12/15/17 12/16/17 06:59 06:59 06:59 Intake Total 1614 200 Balance 1614 200 Weight 152.1 kg General appearance: PRESENT: no acute distress, cooperative, well-developed, well-nourished Head exam: PRESENT: atraumatic, normocephalic Eye exam: PRESENT: conjunctiva pink, EOMI, PERRLA. ABSENT: scleral icterus Ear exam: PRESENT: normal external ear exam Mouth exam: PRESENT: moist, tongue midline Neck exam: ABSENT: carotid bruit, JVD, lymphadenopathy, thyromegaly Respiratory exam: PRESENT: clear to auscultation henri, symmetrical, unlabored. ABSENT: rales, rhonchi, wheezes Cardiovascular exam: PRESENT: RRR, +S1, +S2. ABSENT: diastolic murmur, rubs, systolic murmur Pulses: PRESENT: normal dorsalis pedis pul Vascular exam: PRESENT: normal capillary refill GI/Abdominal exam: PRESENT: normal bowel sounds, soft. ABSENT: distended, guarding, mass, organolmegaly, rebound, tenderness Rectal exam: PRESENT: deferred Extremities exam: PRESENT: full ROM. ABSENT: calf tenderness, clubbing, pedal edema Neurological exam: PRESENT: alert, awake, oriented to person, oriented to place , oriented to time, oriented to situation, CN II-XII grossly intact. ABSENT: motor sensory deficit Psychiatric exam: PRESENT: appropriate affect, normal mood. ABSENT: homicidal ideation, suicidal ideation Skin exam: PRESENT: dry, intact, rash - Hives to abdomen and back; mild erythema , improved from yesterday, pruritus is resolved., warm. ABSENT: cyanosis Results Laboratory Results: 12/15/17 05:18 12/14/17 12/14/17 12/15/17 02:50 22:17 05:18 WBC Cancelled RBC Cancelled Hgb Cancelled Hct Cancelled MCV Cancelled MCH Cancelled MCHC Cancelled RDW Cancelled Plt Count Cancelled Seg Neutrophils % Cancelled Lymphocytes % Cancelled Monocytes % Cancelled Eosinophils % Cancelled Basophils % Cancelled Absolute Neutrophils Cancelled Absolute Lymphocytes Cancelled Absolute Monocytes Cancelled Absolute Eosinophils Cancelled Absolute Basophils Cancelled Urine Color YELLOW Urine Appearance CLEAR Urine pH 6.0 Ur Specific [place] 1.013 Urine Protein NEGATIVE Urine Glucose (UA) >=500 H Urine Ketones NEGATIVE Urine Blood LARGE H Urine Nitrite NEGATIVE Ur Leukocyte Esterase NEGATIVE Urine WBC (Auto) 2 Urine RBC (Auto) 151 Blood Type O NEGATIVE Antibody Screen NEGATIVE 12/15/17 05:18 WBC 0.2 L* RBC 2.57 L Hgb 8.1 L D Hct 22.0 L MCV 85 MCH 31.3 MCHC 36.7 H RDW 16.6 H Plt Count Seg Neutrophils % 1.1 L Lymphocytes % 81.7 H Monocytes % 16.9 H Eosinophils % 0.3 Basophils % 0.0 Absolute Neutrophils 0.0 L Absolute Lymphocytes 0.2 L Absolute Monocytes 0.0 L Absolute Eosinophils 0.0 Absolute Basophils 0.0 Urine Color Urine Appearance Urine pH Ur Specific [place] Urine Protein Urine Glucose (UA) Urine Ketones Urine Blood Urine Nitrite Ur Leukocyte Esterase Urine WBC (Auto) Urine RBC (Auto) Blood Type Antibody Screen Impressions: Abdomen Ultrasound 12/14/17 00:26 IMPRESSION: No acute findings. Nonmobile 0.2 cm focal echogenicity of the gallbladder wall likely due to a benign gallbladder polyp or adherent stone. Chest X-Ray 12/14/17 00:27 IMPRESSION: No acute cardiopulmonary findings. Plan Discharge Plan: Transfer to [facility] under the care of Dr. Alba Barnett.
[2017-12-15 19:50] LABS: VANCOMYCIN,TROUGH < 5.0 ug/mL (5.0-20.0)
[2017-12-16] MEDS: IMIPENEM/CILASTATIN SODIUM 500 MG in NORMAL SALINE 100 ML IV SCH ×3 (04:13→14:26)
[2017-12-16] MEDS: VANCOMYCIN HCL 1,000 MG in DEXTROSE 5%-WATER 250 ML IV SCH (05:41)
[2017-12-16 06:08] LABS: HEMATOCRIT 20.9 % (37.9-51.0); MEAN CORPUSCULAR HEMOGLOBIN 31.8 pg (27.0-33.4); MEAN CORPUSCULAR VOLUME 86 fl (80-97); RED BLOOD COUNT 2.44 10^6/uL (4.35-5.55)
[2017-12-16 06:25] LABS: VANCOMYCIN,TROUGH 5.1 ug/mL (5.0-20.0)
[2017-12-16 06:48] LABS: MEAN CORPUSCULAR HGB CONC 37.2 g/dL (32.0-36.0)
[2017-12-16 06:50] LABS: WHITE BLOOD COUNT 0.4 10^3/uL (4.0-10.5)
[2017-12-16 06:51] LABS: PLATELET COUNT 27 10^3/uL (150-450)
[2017-12-16 07:02] LABS: ABSOLUTE LYMPHOCYTES# (MANUAL) 0.3 10^3/uL (0.5-4.7); ABSOLUTE NEUTROPHILS# (MANUAL) 0.1 10^3/uL (1.7-8.2); BASOPHILS % (MANUAL) 0 % (0-2); EOSINOPHILS % (MANUAL) 0 % (0-6); LYMPHOCYTES % (MANUAL) 66 % (13-45); MONOCYTES % (MANUAL) 8 % (3-13); SEGMENTED NEUTROPHILS % (MAN) 26 % (42-78); TOTAL CELLS COUNTED 50
[2017-12-16 07:07] LABS: ANISOCYTOSIS 1+; SCHISTOCYTES SLIGHT; TOXIC GRANULATION SLIGHT
[2017-12-16 07:08] LABS: PLATELET COMMENT DECREASED
[2017-12-16 07:09] LABS: PLATELET LARGE PRESENT
--- NOTE | 2017-12-16 08:30 | PDOC PROGRESS REPORT ---
Subjective Progress Note for:: 12/16/17 Subjective:: Pt did well yesterday w/ plt tx yesterday, plt ct improved to 27 today. Pt remains afebrile. I repeated blood cultures today and decreased IVF as pt is taking in PO. Thus [facility]. Reason For Visit: NEUTROPENIC FEVER Physical Exam Vital Signs: Temp Pulse Resp BP Pulse Ox 97.7 F 71 17 105/71 98 12/16/17 03:25 12/16/17 07:00 12/16/17 03:25 12/16/17 03:25 12/16/17 03:25 Intake & Output 12/15/17 12/16/17 12/17/17 06:59 06:59 06:59 Intake Total 1614 2911 250 Balance 1614 2911 250 Weight 152.1 kg 67.5 kg General appearance: PRESENT: no acute distress, well-developed, well-nourished Head exam: PRESENT: atraumatic, normocephalic Eye exam: PRESENT: conjunctiva pink, EOMI, PERRLA. ABSENT: scleral icterus Ear exam: PRESENT: normal external ear exam Mouth exam: PRESENT: moist, tongue midline Neck exam: ABSENT: carotid bruit, JVD, lymphadenopathy, thyromegaly Respiratory exam: PRESENT: clear to auscultation henri. ABSENT: rales, rhonchi, wheezes Cardiovascular exam: PRESENT: RRR. ABSENT: diastolic murmur, rubs, systolic murmur Pulses: PRESENT: normal dorsalis pedis pul Vascular exam: PRESENT: normal capillary refill GI/Abdominal exam: PRESENT: normal bowel sounds, soft. ABSENT: distended, guarding, mass, organolmegaly, rebound, tenderness Rectal exam: PRESENT: deferred Extremities exam: PRESENT: full ROM. ABSENT: calf tenderness, clubbing, pedal edema Neurological exam: PRESENT: alert, awake, oriented to person, oriented to place , oriented to time, oriented to situation, CN II-XII grossly intact. ABSENT: motor sensory deficit Psychiatric exam: PRESENT: appropriate affect, normal mood. ABSENT: homicidal ideation, suicidal ideation Skin exam: PRESENT: dry, intact, warm. ABSENT: cyanosis, rash Results Laboratory Results: 12/16/17 05:34 12/16/17 05:34 12/14/17 12/16/17 12/16/17 02:50 05:34 05:34 WBC 0.4 L* RBC 2.44 L Hgb 7.8 L Hct 20.9 L MCV 86 MCH 31.8 MCHC 37.2 H RDW 16.0 H Plt Count 27 L* D Seg Neutrophils % Not Reportable Lymphocytes % Not Reportable Monocytes % Not Reportable Eosinophils % Not Reportable Basophils % Not Reportable Absolute Neutrophils Not Reportable Absolute Lymphocytes Not Reportable Absolute Monocytes Not Reportable Absolute Eosinophils Not Reportable Absolute Basophils Not Reportable Creatinine 0.50 L Est GFR ( Amer) > 60 Est GFR (Non-Af Amer) > 60 Blood Type O NEGATIVE Antibody Screen NEGATIVE Impressions: Abdomen Ultrasound 12/14/17 00:26 IMPRESSION: No acute findings. Nonmobile 0.2 cm focal echogenicity of the gallbladder wall likely due to a benign gallbladder polyp or adherent stone. Chest X-Ray 12/14/17 00:27 IMPRESSION: No acute cardiopulmonary findings. Assessment & Plan - Diagnosis (1) Neutropenic fever Is this a current diagnosis for this admission?: Yes Plan: Neutropenia continued, gram positive cocci thus far as source, con't with imipenum and vancomycin until typing out, blood cultures repeated today (2) Thrombocytopenia Is this a current diagnosis for this admission?: Yes Plan: Improved post tx, 2nd to chemo (3) AML (acute myeloblastic leukemia) Qualifiers: Leukemia Active/Remission status: without remission Qualified Code(s): C92.00 - Acute myeloblastic leukemia, not having achieved remission Is this a current diagnosis for this admission?: Yes Plan: s/p consolidation #2, plan for cont f/u and tx at [facility] as outpt (4) Anemia associated with chemotherapy Is this a current diagnosis for this admission?: Yes Plan: Hb decreased, expect continued drop but no tx unless hb <7 - Time Time Spent with patient: 35 or more minutes - Inpatient Certification Based on my medical assessment, after consideration of the patient's comorbidities, presenting symptoms, or acuity I expect that the services needed warrant INPATIENT care.: Yes I certify that my determination is in accordance with my understanding of Medicare's requirements for reasonable and necessary INPATIENT services [42 CFR 412.3e].: Yes Medical Necessity: Need for IV Antibiotics
[2017-12-16] MEDS: NICOTINE 14 MG/24 HR PATCH.TD24 TD SCH (09:27)
[2017-12-16] MEDS: NORMAL SALINE 1000 ML 1,000 ML IV PRN (13:23)
[2017-12-16] MEDS ORDERED: VANCOMYCIN HCL 1,500 MG in DEXTROSE 5%-WATER 250 ML IV SCH (14:00)
[2017-12-16 14:11] LABS: WHITE BLOOD COUNT 0.2 10^3/uL (4.0-10.5)
--- NOTE | 2017-12-16 15:23 | PDOC PROGRESS REPORT ---
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 The patient was seen on morning rounds. He is found resting in bed comfortably on room air. He states that he is feeling fine today and his only complaint is pain/itching to his right fourth and fifth toe related to athlete's foot. Otherwise, he denies fever, chills, body aches, chest pain, palpitations, dyspnea, orthopnea, cough, abdominal pain, nausea vomiting diarrhea. The patient did have another unit of platelets transfused overnight; this time without transfusion reaction. He continues to wait for bed availability at [facility] beds at the [facility] for transfer. He has no questions or concerns at this time. No concerns per nursing. Reason For Visit: NEUTROPENIC FEVER Physical Exam Vital Signs: Temp Pulse Resp BP Pulse Ox 98.3 F 122 H 19 121/66 100 12/16/17 11:35 12/16/17 14:00 12/16/17 11:35 12/16/17 11:35 12/16/17 11:35 Intake & Output 12/15/17 12/16/17 12/17/17 06:59 06:59 06:59 Intake Total 1614 2911 2220 Balance 1614 2911 2220 Weight 152.1 kg 67.5 kg General appearance: PRESENT: no acute distress, well-developed, well-nourished Head exam: PRESENT: atraumatic, normocephalic Eye exam: PRESENT: conjunctiva pink, EOMI, PERRLA. ABSENT: scleral icterus Ear exam: PRESENT: normal external ear exam Mouth exam: PRESENT: moist, tongue midline Neck exam: ABSENT: carotid bruit, JVD, lymphadenopathy, thyromegaly Respiratory exam: PRESENT: clear to auscultation henri. ABSENT: rales, rhonchi, wheezes Cardiovascular exam: PRESENT: RRR. ABSENT: diastolic murmur, rubs, systolic murmur Pulses: PRESENT: normal dorsalis pedis pul Vascular exam: PRESENT: normal capillary refill GI/Abdominal exam: PRESENT: normal bowel sounds, soft. ABSENT: distended, guarding, mass, organolmegaly, rebound, tenderness Rectal exam: PRESENT: deferred Extremities exam: PRESENT: full ROM. ABSENT: calf tenderness, clubbing, pedal edema Neurological exam: PRESENT: alert, awake, oriented to person, oriented to place , oriented to time, oriented to situation, CN II-XII grossly intact. ABSENT: motor sensory deficit Psychiatric exam: PRESENT: appropriate affect, normal mood. ABSENT: homicidal ideation, suicidal ideation Skin exam: PRESENT: dry, intact, warm. ABSENT: cyanosis, rash Results Laboratory Results: 12/16/17 05:34 12/16/17 05:34 12/14/17 12/15/17 12/16/17 02:50 05:18 05:34 WBC 0.2 L* RBC Hgb 8.1 L D Hct MCV MCH MCHC RDW Plt Count Seg Neutrophils % Lymphocytes % Monocytes % Eosinophils % Basophils % Absolute Neutrophils Absolute Lymphocytes Absolute Monocytes Absolute Eosinophils Absolute Basophils Creatinine 0.50 L Est GFR ( Amer) > 60 Est GFR (Non-Af Amer) > 60 Blood Type O NEGATIVE Antibody Screen NEGATIVE 12/16/17 05:34 WBC 0.4 L* RBC 2.44 L Hgb 7.8 L Hct 20.9 L MCV 86 MCH 31.8 MCHC 37.2 H RDW 16.0 H Plt Count 27 L* D Seg Neutrophils % Not Reportable Lymphocytes % Not Reportable Monocytes % Not Reportable Eosinophils % Not Reportable Basophils % Not Reportable Absolute Neutrophils Not Reportable Absolute Lymphocytes Not Reportable Absolute Monocytes Not Reportable Absolute Eosinophils Not Reportable Absolute Basophils Not Reportable Creatinine Est GFR ( Amer) Est GFR (Non-Af Amer) Blood Type Antibody Screen Impressions: Abdomen Ultrasound 12/14/17 00:26 IMPRESSION: No acute findings. Nonmobile 0.2 cm focal echogenicity of the gallbladder wall likely due to a benign gallbladder polyp or adherent stone. Chest X-Ray 12/14/17 00:27 IMPRESSION: No acute cardiopulmonary findings. Assessment & Plan - Diagnosis (1) Thrombocytopenia Is this a current diagnosis for this admission?: Yes Plan: Severe thrombocytopenia related to AML and recent consolidation treatment at [facility]. Dr. Rouse has spoken with hematology/oncology at [facility] beds at the [facility] and arranged for the patient to be transferred due to concern for persistent thrombocytopenia despite multiple platelet transfusions, multiple transfusion reactions to irradiated, leukocyte reduced platelets (twice out of 5 transfusions total; 1 reaction this admission), and neutropenic fever with gram- positive cocci blood cultures in 2 sets. The patient will benefit from transfer for increased availability of HLA match platelets and/or washed platelets can be obtained and transfused faster [facility] than is available at [facility]. I did speak with the [facility] transfer center early this morning. The patient continues to wait for a bed assignment; unfortunately, their facility is also under high capacity and it was difficult for them to anticipate patient movement today. (2) Neutropenic fever Is this a current diagnosis for this admission?: Yes Plan: Urine and fecal cultures are negative. First set of blood cultures (4/4 bottles) growing Gram positive cocci. Second set is pending; obtained today. The patient has been empirically placed on IV imipenem and vancomycin. He has been afebrile x 48 hours. Although WBCs and absolute neutrophil count remains low; they are trending up. WBC 0.3--> 0.2--> 0.4; Abs Neutrophils 0.0--> 0.0--> 0.1 (3) Transfusion reaction Is this a current diagnosis for this admission?: Yes Plan: Prior to admission, the patient reports that he had a mild transfusion reaction to an attempt to transfuse platelets but was able to receive different unit without difficulty. During this admission, he was premedicated with Tylenol, Benadryl, and dexamethasone but developed a significant transfusion reaction to his first unit of platelets. He expierienced acute respiratory distress and hives within 15 minutes of initiating the first unit of platelets. The patient was noted to become tachypneic with respiratory rate in the mid 30s, tachycardic with a heart rate of 135, blood pressure 110/60s, and hypoxia with a SPO2 of 89% on room air. He was placed on 2 L via nasal cannula. He was ordered an additional 325 mg p.o. Tylenol, 25 mg p.o. Benadryl, and 4 mg IV dexamethasone once reaction was noted. A second unit was attempted that evening and was successfully transfused without difficulty. A third unit was provided last night without difficulty. In total; patient has received two of the three attempted PLT units this admission. (4) AML (acute myeloblastic leukemia) Qualifiers: Leukemia Active/Remission status: without remission Qualified Code(s): C92.00 - Acute myeloblastic leukemia, not having achieved remission Is this a current diagnosis for this admission?: Yes Plan: Oncology has been consulted; appreciate Dr. Rouse's expertise. The patient is awaiting bed assignment and transferred to [facility] beds at the [facility]. (5) Anemia associated with chemotherapy Is this a current diagnosis for this admission?: Yes Plan: Initial hemoglobin was noted to be 10.2; this is expectantly trended downwards. Today 7.8. We will monitor closely and transfuse for hemoglobin less than 7. (6) Neutropenia Qualifiers: Neutropenia type: unspecified Qualified Code(s): D70.9 - Neutropenia, unspecified Is this a current diagnosis for this admission?: Yes Plan: Secondary to AML and post consolidation treatment #[address] [facility]. Patient is placed in protective precautions. Awaiting transfer to [facility]. (7) Bacteremia Is this a current diagnosis for this admission?: Yes Plan: The first set of blood cultures (4 out of 4 bottles) is positive for staph epidermidis with multiple resistances; fortunately sensitive to clindamycin, gentamicin, Bactrim, and vancomycin. The first 2 bottles were obtained from the patient's right hand, second 2 bottles were obtained from the patient's [place] catheter. Repeat blood cultures that was obtained today. The patient has empirically been placed on been empirically placed on IV vancomycin and imipenem. (8) Tinea pedis Qualifiers: Laterality: right Qualified Code(s): B35.3 - Tinea pedis Is this a current diagnosis for this admission?: Yes Plan: Rt 4th/5th toes. Will start Mycostatin cream; currently on IV vancomycin. Will monitor carefully for s/sx of cellulitis. - Time Time Spent with patient: Less than 15 minutes Anticipated discharge: [facility] - [facility] Within: when bed available
[2017-12-16 17:23] VITALS: BP 120/62
[2017-12-16] MEDS ORDERED: NYSTATIN CREAM 15 GM TP SCH (18:00)
[2017-12-17 08:21] LABS: HEMOGLOBIN 7.8 g/dL (13.5-17.0)
== END 2017-12-16 19:35 | disposition short-term general hospital (02) | DRG 809 ==
LOC: ER 00:01 → EH 02:34 → 5 03:45
PROVIDERS: ADMIT Internal Medicine; ATTEND Internal Medicine
PROC: 30243R1 Transfusion of Nonautologous Platelets into Central Vein, Percutaneous Approach (ICD-10-PCS; principal; 2017-12-14)
PROC: 30243R1 Transfusion of Nonautologous Platelets into Central Vein, Percutaneous Approach (ICD-10-PCS; 2017-12-15)
DX: D70.1 Agranulocytosis secondary to cancer chemotherapy (principal); C92.00 Acute myeloblastic leukemia, not having achieved remission; R78.81 Bacteremia; T45.1X5A Adverse effect of antineoplastic and immunosuppressive drugs, initial encounter; D69.59 Other secondary thrombocytopenia; D64.81 Anemia due to antineoplastic chemotherapy; R50.81 Fever presenting with conditions classified elsewhere; B95.7 Other staphylococcus as the cause of diseases classified elsewhere; Z79.899 Other long term (current) drug therapy; F17.200 Nicotine dependence, unspecified, uncomplicated; T80.89XA Other complications following infusion, transfusion and therapeutic injection, initial encounter; L50.0 Allergic urticaria; R06.03 Acute respiratory distress; R09.02 Hypoxemia; R00.0 Tachycardia, unspecified; R31.9 Hematuria, unspecified; Z75.1 Person awaiting admission to adequate facility elsewhere
CPT/HCPCS: 36415; 36430; 71045; 76705; 80053; 80202; 81001; 82565; 82803; 83605; 85025; 85610; 86850; 86900; 86901; 87040; 87070; 87077; 87086; 87186; 87880; 93005; 93010; 94640; 96374; 96375; 99285; J0743; J1100; J1200; J2270; J2405; J2930; J3370; J3490; J7030; J7060; J7620; P9035; S0028

== ENCOUNTER 2018-03-07 15:33 | Emergency (ER) | payer OTHER ==
[2018-03-07 15:38] VITALS: BP 108/69
--- NOTE | 2018-03-07 16:47 | ER Document Report ---
HPI - HPI Pain Level: Denies Notes: Patient is a 62-year-old male who presents to the emergency department with an outpatient order from his oncologist for Neulasta. Patient has no acute complaints at this time. - CONSTITUTIONAL Constitutional: DENIES: Fever, Chills - EENT EENT: DENIES: Sore Throat, Ear Pain, Eye problems - NEURO Neurology: DENIES: Headache, Weakness, Vision blurred, Dizzinesss / Vertigo - CARDIOVASCULAR Cardiovascular: DENIES: Chest pain - RESPIRATORY Respiratory: DENIES: Trouble Breathing, Coughing - GASTROINTESTINAL Gastrointestinal: DENIES: Abdominal Pain, Black / Bloody Stools - URINARY Urinary: DENIES: Dysuria, Urgency, Frequency - REPRODUCTIVE Reproductive: DENIES: : - MUSCULOSKELETAL Musculoskeletal: DENIES: Extremity pain Past Medical History - General Information source: Patient - Social History Smoking Status: Current Every Day Smoker Chew tobacco use (# tins/day): No Frequency of alcohol use: Occasional Drug Abuse: None Family History: Reviewed & Not Pertinent Patient has suicidal ideation: No Patient has homicidal ideation: No Renal/ Medical History: Denies: Hx Peritoneal Dialysis Malignancy Medical History: 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 HEAD: Atraumatic, normocephalic. EYES: Pupils equal round extraocular movements intact, conjunctiva are normal. ENT: Nares patent NECK: Normal range of motion LUNGS: No respiratory distress Musculoskeletal: Normal range of motion NEUROLOGICAL: Normal speech, normal gait. PSYCH: Normal mood, normal affect. SKIN: Warm, Dry, normal turgor, no rashes or lesions noted. - INFECTION CONTROL TRAVEL OUTSIDE OF THE [place] IN LAST 30 DAYS: No Course - Re-evaluation Re-evalutation: Patient given dose of Neulasta per oncology orders. Patient discharged home in stable condition. - Vital Signs Vital signs: Temp Pulse Resp BP Pulse Ox 98.6 F 91 16 108/69 98 03/07/18 15:38 03/07/18 15:38 03/07/18 15:38 03/07/18 15:38 03/07/18 15:38 Discharge - Discharge Clinical Impression: Medication administered Condition: Stable Disposition: HOME, SELF-CARE Additional Instructions: You were given your dose of Neulasta today. Please return to the emergency department for any additional concerns. Keep all follow-up appointments with both your oncology and primary care team. Referrals: JOSEPH EDWARDS MD [NO LOCAL MD] - Follow up as needed
[2018-03-07] MEDS ORDERED: PEGFILGRASTIM INJ 6 MG/0.6 ML DISP.SYRIN SUBCUT ONE (18:00)
== END 2018-03-07 17:35 | disposition home or self-care (01) ==
LOC: ER 15:33
DX: Z79.899 Other long term (current) drug therapy (principal)
CPT/HCPCS: 99281; 96372; J2505; 99211

== ENCOUNTER 2018-03-14 18:43 | Inpatient (IN) | payer OTHER ==
[2018-03-14] MEDS ORDERED: NORMAL SALINE 1000 ML 1,000 ML IV ONE ×2 (19:00→19:44)
[2018-03-14] MEDS ORDERED: PIPERACILLIN/TAZOBACTAM 4.5 GM VIAL IV ONE (19:00)
[2018-03-14] MEDS ORDERED: VANCOMYCIN HCL INJ 1000 MG VIAL IV ONE (19:00)
[2018-03-14] MEDS ORDERED: ACETAMINOPHEN 325 MG TABLET PO ONE (19:00)
--- NOTE | 2018-03-14 19:02 | ER Document Report ---
ED Medical Screen (RME) - General Chief Complaint: Fever Stated Complaint: FEVER Time Seen by Provider: 03/14/18 18:57 Notes: 63 years old male with a history of acute myeloid leukemia, currently being treated at [facility] presents today with fever chills cough for the last 24 hours. Nonproductive cough. Denies any headache dizziness. Denies any chest pain. Denies any nausea vomiting. Denies any dysuria frequency urgency. TRAVEL OUTSIDE OF THE [place] 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 Past Surgical History: Reports: Other - Bone marrow biopsy - Immunizations Hx Diphtheria, Pertussis, Tetanus Vaccination: Yes History of Influenza Vaccine for 02/2017 - 07/2017 Season: Refused Physical Exam - Vital signs Vitals: Temp Pulse Resp BP Pulse Ox 100.2 F 121 H 20 147/63 H 100 03/14/18 18:54 03/14/18 18:54 03/14/18 18:54 03/14/18 18:54 03/14/18 18:54 Course - Vital Signs Vital signs: Temp Pulse Resp BP Pulse Ox 100.2 F 121 H 20 147/63 H 100 03/14/18 18:54 03/14/18 18:54 03/14/18 18:54 03/14/18 18:54 03/14/18 18:54 Doctor's Discharge - Discharge Referrals: JUSTIN HYMAN MD [Primary Care Provider] - Follow up as needed
[2018-03-14] MEDS ORDERED: CEFEPIME 2 GM/D5W RTU 2 GM/50 ML RTUPB IV ONE ×2 (19:45→22:19)
--- NOTE | 2018-03-14 19:48 | ER Document Report ---
ED General - General Chief Complaint: Fever Stated Complaint: FEVER Time Seen by Provider: 03/14/18 18:57 Notes: 33-year-old male with acute myelocytic leukemia 10 days post chemo since with fever chills and Reiger's, for about 4 hours. Constant. Abrupt. No cuff device mild swollen lymph nodes below his job. No odynophagia cough shortness of breath leg swelling belly pain vomiting but mild nausea. No diarrhea. ANC this morning Dr. Rubin's office was 0. Platelets were 11 but he has no bleeding. TRAVEL OUTSIDE OF THE [place] 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 Past Surgical History: Reports: Other - Bone marrow biopsy - Immunizations Hx Diphtheria, Pertussis, Tetanus Vaccination: Yes Review of Systems - Review of Systems Notes: REVIEW OF SYSTEMS GEN: chills, fever ENT: Denies sore throat, nasal discharge, ear pain EYES: Denies blurry vision, eye pain, discharge CV: Denies chest pain, palpitations, edema RESP: Denies cough, shortness of breath, wheezing GI: Denies abdominal pain, nausea, vomiting, diarrhea MSK: Denies joint pain/swelling, edema, SKIN: Denies rash, skin lesions LYMPH: Denies swollen glands/lymph nodes NEURO: Denies headache, focal weakness or numbness, dizziness PSYCH: Denies depression, suicidal or homicidal ideation PHYSICAL EXAMINATION General: No acute distress, well-nourished Head: Atraumatic, normocephalic ENT: Mouth normal, oropharynx moist, no exudates or tonsillar enlargement Eyes: Conjunctiva normal, pupils equal, lids normal Neck: No JVD, supple, no guarding CVS: regular rhythm, no murmurs Resp: No resp distress, equal and normal breath sounds bilaterally GI: Nondistended, soft, no tenderness to palpation, no rebound or guarding Ext: No deformities, no edema, normal range of motion in upper and lower ext Back: No CVA or midline TTP Skin: No rash, warm Lymphatic: No lymphadeopathy noted Neuro: Awake, alert. Face symmetric. GCS 15. Physical Exam - Vital signs Vitals: Temp Pulse Resp BP Pulse Ox 100.2 F 121 H 20 147/63 H 100 03/14/18 18:54 03/14/18 18:54 03/14/18 18:54 03/14/18 18:54 03/14/18 18:54 Course - Re-evaluation Re-evalutation: 03/14/18 19:53 Patient presents with neutropenic fever and trauma cytopenia without bleeding. [place] catheter looks good. Will search for other sources including influenza. Triage doctor ordered Zosyn I will change to cefepime given lack of myelosuppression per Dr. Ernestina Win's recommendations, I spoke Ernestina Win about the patient he agrees to be admitted. He himself has ordered special platelets of the patient to receive tomorrow. Discussed with Dr. Ernestina Win and also with Dr. Mina who will admit. 03/14/18 19:54 Qualifies for sepsisgiven IV fluids. Lactic is pending. 03/14/18 22:46 Patient's ANC is in fact 0. Discussed with hospitalist. Admitted. Heart rate down with fluids. - Vital Signs Vital signs: Temp Pulse Resp BP Pulse Ox 101.0 F H 120 H 24 H 121/73 96 03/14/18 22:19 03/14/18 22:19 03/14/18 22:19 03/14/18 22:19 03/14/18 22:19 - Laboratory Result Diagrams: 03/14/18 21:30 03/14/18 21:30 - Diagnostic Test Radiology reviewed: Image reviewed, Reports reviewed - EKG Interpretation by Me EKG shows normal: Sinus rhythm Rate: Tachycardia When compared to previous EKG there are: No significant change Critical Care Note - Critical Care Note Total time excluding time spent on procedures (mins): 32 Comments: The above patient is critically ill. Not including procedures, but including direct re-evaluations, speaking with patient and/or consultants, interpreting results, and documenting, I spent the total amount of minute listed listed above on critical care time Discharge - Discharge Clinical Impression: Fever and neutropenia Sepsis Qualifiers: Sepsis type: sepsis due to unspecified organism Qualified Code(s): A41.9 - Sepsis, unspecified organism Condition: Fair Disposition: ADMITTED INPATIENT Admitting Provider: Kari Unit Admitted: [facility]
--- NOTE | 2018-03-14 19:49 | RADIOLOGY REPORT (SQ) ---
EXAM DESCRIPTION: CHEST SINGLE VIEW COMPLETED DATE/TIME: 03/14/2018 7:19 pm REASON FOR STUDY: Cough COMPARISON: None. EXAM PARAMETERS: NUMBER OF VIEWS: One view. TECHNIQUE: Single frontal radiographic view of the chest acquired. RADIATION DOSE: NA LIMITATIONS: None. FINDINGS: LUNGS AND PLEURA: Lungs are hyperexpanded. There is no infiltrate or effusion. MEDIASTINUM AND HILAR STRUCTURES: No masses. Contour normal. HEART AND VASCULAR STRUCTURES: Heart normal in size. Normal vasculature. BONES: No acute findings. HARDWARE: A right-sided catheter has its tip in the superior vena cava. OTHER: No other significant finding. IMPRESSION: Chronic lung changes. No acute findings. TECHNICAL DOCUMENTATION: JOB ID: [id number] [email or web address]- All Rights Reserved Reading location - IP/workstation name: [email or web address]
[2018-03-14 21:52] LABS: VENOUS BLOOD BASE EXCESS 4.6 mmol/L; VENOUS BLOOD HCO3 28.2 mmol/L (20-32); VENOUS BLOOD PCO2 37.7 mmHg (35-63); VENOUS BLOOD PH 7.49 (7.30-7.42)
[2018-03-14 21:54] LABS: ABSOLUTE LYMPHOCYTES (AUTO) 0.1 10^3/uL (0.5-4.7); EOSINOPHILS % (AUTO) 4.5 % (0-6); HEMATOCRIT 24.2 % (37.9-51.0); MEAN CORPUSCULAR HEMOGLOBIN 35.1 pg (27.0-33.4); MEAN CORPUSCULAR VOLUME 94 fl (80-97); MONOCYTES % (AUTO) 1.3 % (3-13); RED BLOOD COUNT 2.57 10^6/uL (4.35-5.55); RED CELL DISTRIBUTION WIDTH 13.2 % (11.5-14.0); SEGMENTED NEUTROPHILS % (AUTO) 3.2 % (42-78); TOTAL CELLS COUNTED % (AUTO) 100 %
--- NOTE | 2018-03-14 21:59 | EKG REPORT ---
SEVERITY:- OTHERWISE NORMAL ECG - SINUS TACHYCARDIA : Confirmed by: Margret Day MD 14-Mar-2018 21:57:08
[2018-03-14 22:03] LABS: INTERNATIONAL RATION (INR) 0.96; PROTHROMBIN TIME 13.3 SEC (11.4-15.4)
[2018-03-14 22:06] LABS: ALANINE AMINOTRANSFERASE 25 U/L (21-72); ALBUMIN 3.7 g/dL (3.5-5.0); ALKALINE PHOSPHATASE 66 U/L (38-126); ANION GAP 11 (5-19); ASPARTATE AMINO TRANSFERASE 19 U/L (17-59); BILIRUBIN,DIRECT 0.1 mg/dL (0.0-0.4); BILIRUBIN,TOTAL 0.8 mg/dL (0.2-1.3); BLOOD UREA NITROGEN 18 mg/dL (7-20); CALCIUM 9.1 mg/dL (8.4-10.2); CARBON DIOXIDE 28 mmol/L (22-30); CHLORIDE 98 mmol/L (98-107); GLUCOSE 117 mg/dL (75-110); POTASSIUM 3.7 mmol/L (3.6-5.0); SODIUM 136.8 mmol/L (137-145); TOTAL PROTEIN 6.1 g/dL (6.3-8.2)
[2018-03-14] MEDS ORDERED: VANCOMYCIN HCL INJ 1000 MG VIAL ONE (22:19)
[2018-03-14 22:25] LABS: MEAN CORPUSCULAR HGB CONC 37.4 g/dL (32.0-36.0)
[2018-03-14 22:28] LABS: OVALOCYTES SLIGHT; PLATELET COMMENT DECREASED; TEAR DROP CELLS SLIGHT
[2018-03-14] MEDS ORDERED: ACETAMINOPHEN 325 MG TABLET ONE (22:28)
[2018-03-14 22:40] LABS: WHITE BLOOD COUNT 0.1 10^3/uL (4.0-10.5)
[2018-03-14 22:41] LABS: PLATELET COUNT 8 10^3/uL (150-450); POIKILOCYTOSIS SLIGHT
[2018-03-14] MEDS ORDERED: DOCUSATE SODIUM 100 MG CAPSULE PO PRN (23:38)
[2018-03-14] MEDS ORDERED: ZOLPIDEM TARTRATE 5 MG TABLET PO ONE (23:45)
[2018-03-15] MEDS: ACETAMINOPHEN 325 MG TABLET PO PRN ×2 (03:22→09:20)
[2018-03-15] MEDS ORDERED: CEFEPIME 2 GM/D5W RTU 2 GM/50 ML RTUPB IV ONE (03:35)
[2018-03-15 04:16] LABS: HEMATOCRIT 21.5 % (37.9-51.0); MEAN CORPUSCULAR HEMOGLOBIN 35.1 pg (27.0-33.4); MEAN CORPUSCULAR VOLUME 94 fl (80-97); RED BLOOD COUNT 2.29 10^6/uL (4.35-5.55); RED CELL DISTRIBUTION WIDTH 13.2 % (11.5-14.0)
[2018-03-15 04:17] LABS: MEAN CORPUSCULAR HGB CONC 37.3 g/dL (32.0-36.0)
[2018-03-15 04:22] LABS: INTERNATIONAL RATION (INR) 1.11; PROTHROMBIN TIME 14.9 SEC (11.4-15.4)
[2018-03-15 04:23] LABS: ALBUMIN 3.2 g/dL (3.5-5.0); ASPARTATE AMINO TRANSFERASE 17 U/L (17-59); BILIRUBIN,DIRECT 0.1 mg/dL (0.0-0.4); BILIRUBIN,TOTAL 0.8 mg/dL (0.2-1.3); BLOOD UREA NITROGEN 15 mg/dL (7-20); CALCIUM 8.4 mg/dL (8.4-10.2); CHOLESTEROL 124.99 mg/dL (0-200); GLUCOSE 106 mg/dL (75-110); NEONATAL BILIRUBIN RESULT 0.7 mg/dL (0.1-1.1); PARTIAL THROMBOPLASTIN TIME 39.6 SEC (23.5-35.8); TOTAL PROTEIN 5.6 g/dL (6.3-8.2); TRIGLYCERIDES 84 mg/dL (<150)
[2018-03-15 04:25] LABS: PLATELET COUNT 6 10^3/uL (150-450); WHITE BLOOD COUNT 0.1 10^3/uL (4.0-10.5)
[2018-03-15 04:45] LABS: ABSOLUTE LYMPHOCYTES# (MANUAL) 0.1 10^3/uL (0.5-4.7); BASOPHILS % (MANUAL) 0 % (0-2); EOSINOPHILS % (MANUAL) 0 % (0-6); LYMPHOCYTES % (MANUAL) 92 % (13-45); MONOCYTES % (MANUAL) 4 % (3-13); SEGMENTED NEUTROPHILS % (MAN) 4 % (42-78); TOTAL CELLS COUNTED 50
[2018-03-15 04:46] LABS: OVALOCYTES 1+; PAPPENHEIMER BODIES PRESENT; PLATELET COMMENT DECREASED; POIKILOCYTOSIS 1+; SCHISTOCYTES 2+
[2018-03-15 04:55] LABS: CARBON DIOXIDE 25 mmol/L (22-30); CHLORIDE 101 mmol/L (98-107)
[2018-03-15 05:02] LABS: ALKALINE PHOSPHATASE 50 U/L (38-126); ANION GAP 10 (5-19); POTASSIUM 3.7 mmol/L (3.6-5.0)
[2018-03-15 05:03] LABS: ALANINE AMINOTRANSFERASE 25 U/L (21-72)
[2018-03-15] MEDS: CEFEPIME 2 GM/D5W RTU 2 GM/50 ML RTUPB IV SCH ×3 (05:07→21:46)
[2018-03-15] MEDS ORDERED: NORMAL SALINE 250 ML IV PRN (07:37)
[2018-03-15] MEDS ORDERED: VANCOMYCIN HCL 0 MG in DEXTROSE 5%-WATER 250 ML IV NR (07:45)
--- NOTE | 2018-03-15 09:12 | PDOC CONSULTATION ---
Consultation Consult Date: 03/15/18 Consult reason:: Hematology/Oncology consultation was requested for patient with AML and neutropenic fever. History of Present Illness Admission Date/PCP: 03/14/18 20:22 JUSTIN HYMAN MD History of Present Illness: GERDA NICK is a 63 year old male who was diagnosed with AML in September of this year. He has been undergoing treatments at [facility] and underwent cycle #3 of cytarabine and Daunarubicine recently. He states that he developed a fever yesterday and presented to the ED. He is unsure what is causing the fever. He had some diarrhea yesterday, but otherwise, no specific complaints. Past Medical History Cardiac Medical History: Reports: Hyperlipidema Malignancy Medical History: Reports: Leukemia - Acute myeloid leukemia Psychiatric Medical History: Denies: Depression Hematology: Reports: Anemia, Bleeding Tendencies Past Surgical History Past Surgical History: Reports: Other - Bone marrow biopsy, Hernia repair. Social History Occupation: He is and is a registered nurse. Lives with: Family Smoking Status: Never Smoker Cigarettes Packs Per Day: 1 Number of Years Smokin Last Time Smoked: 03/14/2018 Frequency of Alcohol Use: Occasional Hx Recreational Drug Use: Yes Drugs: Marijuana Hx Prescription Drug Abuse: No Family History Family History: Reviewed & Not Pertinent Parental Family History Reviewed: Yes - Mother ovarian cancer age 60. Children Family History Reviewed: No Sibling(s) Family History Reviewed.: Yes Medication/Allergy Home Medications: Fluconazole [Diflucan] 400 mg PO DAILY 03/14/18 Levofloxacin [Levaquin 500 mg Tablet] 500 mg PO DAILY 03/14/18 Valacyclovir HCl [Valacyclovir] 500 mg PO DAILY 03/14/18 Allergies/Adverse Reactions: No Known Allergies Allergy (Verified 03/14/18 18:47) Review of Systems Constitutional: PRESENT: fever(s) Eyes: ABSENT: visual disturbances Ears: ABSENT: hearing changes Nose, Mouth, and Throat: ABSENT: sore throat Cardiovascular: ABSENT: palpitations Respiratory: ABSENT: dyspnea Gastrointestinal: PRESENT: diarrhea Genitourinary: ABSENT: dysuria Musculoskeletal: ABSENT: back pain Integumentary: ABSENT: pruritus Neurological: PRESENT: weakness Hematologic/Lymphatic: PRESENT: easy bruising Physical Exam Vital Signs: Temp Pulse Resp BP Pulse Ox 102.2 F H 107 H 16 105/47 L 96 03/15/18 07:36 03/15/18 07:36 03/15/18 07:36 03/15/18 07:36 03/15/18 07:36 Intake & Output 03/14/18 03/15/18 03/16/18 06:59 06:59 06:59 Intake Total 1100 Output Total 325 Balance 775 Weight 69.9 kg General appearance: PRESENT: thin Exam: 63 year old male. Very sleepy from medications. Head exam: PRESENT: atraumatic, normocephalic Eye exam: PRESENT: EOMI Mouth exam: PRESENT: moist, tongue midline Neck exam: ABSENT: lymphadenopathy, tenderness Respiratory exam: PRESENT: clear to auscultation henri, unlabored Cardiovascular exam: PRESENT: RRR GI/Abdominal exam: PRESENT: soft. ABSENT: tenderness Extremities exam: ABSENT: pedal edema Musculoskeletal exam: PRESENT: normal inspection Neurological exam: PRESENT: alert, awake Skin exam: PRESENT: normal color Results Laboratory Results: 03/15/18 04:00 03/15/18 04:00 03/14/18 03/14/18 03/14/18 21:30 21:30 21:30 WBC 0.1 L* RBC 2.57 L Hgb 9.0 L Hct 24.2 L MCV 94 MCH 35.1 H MCHC 37.4 H RDW 13.2 Plt Count 8 L* Seg Neutrophils % 3.2 L Lymphocytes % 91.0 H Monocytes % 1.3 L Eosinophils % 4.5 Basophils % 0.0 Absolute Neutrophils 0.0 L Absolute Lymphocytes 0.1 L Absolute Monocytes 0.0 L Absolute Eosinophils 0.0 Absolute Basophils 0.0 VBG pH VBG pCO2 VBG HCO3 VBG Base Excess Sodium 136.8 L Potassium 3.7 Chloride 98 Carbon Dioxide 28 Anion Gap 11 BUN 18 Creatinine 0.78 Est GFR ( Amer) > 60 Est GFR (Non-Af Amer) > 60 Glucose 117 H Lactic Acid 0.9 Calcium 9.1 Total Bilirubin 0.8 AST 19 ALT 25 Alkaline Phosphatase 66 Total Protein 6.1 L Albumin 3.7 Triglycerides Cholesterol LDL Cholesterol Direct VLDL Cholesterol HDL Cholesterol 03/14/18 03/15/18 03/15/18 21:30 04:00 04:00 WBC 0.1 L* RBC 2.29 L Hgb 8.0 L Hct 21.5 L MCV 94 MCH 35.1 H MCHC 37.3 H RDW 13.2 Plt Count 6 L* Seg Neutrophils % Not Reportable Lymphocytes % Not Reportable Monocytes % Not Reportable Eosinophils % Not Reportable Basophils % Not Reportable Absolute Neutrophils Not Reportable Absolute Lymphocytes Not Reportable Absolute Monocytes Not Reportable Absolute Eosinophils Not Reportable Absolute Basophils Not Reportable VBG pH 7.49 H VBG pCO2 37.7 VBG HCO3 28.2 VBG Base Excess 4.6 Sodium 136.0 L Potassium 3.7 Chloride 101 Carbon Dioxide 25 Anion Gap 10 BUN 15 Creatinine 0.85 Est GFR ( Amer) > 60 Est GFR (Non-Af Amer) > 60 Glucose 106 Lactic Acid Calcium 8.4 Total Bilirubin 0.8 AST 17 ALT 25 Alkaline Phosphatase 50 Total Protein 5.6 L Albumin 3.2 L Triglycerides 84 Cholesterol 124.99 LDL Cholesterol Direct Not Reportable VLDL Cholesterol 17.0 HDL Cholesterol 48 Impressions: Chest X-Ray 03/14/18 19:00 IMPRESSION: Chronic lung changes. No acute findings. Assessment & Plan - Diagnosis (1) Neutropenic fever Is this a current diagnosis for this admission?: Yes Plan: Continue Cefapime. Expect that counts will recover within 10-14 days. Await culture results. Change antibiotics based on culture results if possible. (2) AML (acute myeloblastic leukemia) Qualifiers: Leukemia Active/Remission status: without remission Qualified Code(s): C92.00 - Acute myeloblastic leukemia, not having achieved remission Is this a current diagnosis for this admission?: Yes Plan: Still undergoing active chemotherapy. He is currently pancytopenic due to treatment. Will continue to support with blood transfusions to try to keep HGB >8 and PLT >10. Watch for evidence of bleeding. - Plan Summary Plan Summary: I would NOT use SCDs or other DVT prophylaxis until PLT are >50. Encourage good nutrition and walking.
[2018-03-15 10:36] LABS: PATH REVIEW PATHOLOGIST REVIEWED
[2018-03-15] MEDS: VANCOMYCIN HCL 1,000 MG in DEXTROSE 5%-WATER 250 ML IV SCH ×2 (12:32→21:46)
[2018-03-15] MEDS ORDERED: DIPHENHYDRAMINE HCL 25 MG CAPSULE PO PRN ×2 (12:33→13:47)
[2018-03-15] MEDS ORDERED: FAMOTIDINE 20 MG TABLET PO PRN (13:45)
[2018-03-15] MEDS ORDERED: METHYLPREDNISOLONE INJ 125 MG/2 ML SDV IV PRN (13:45)
[2018-03-15] MEDS ORDERED: ACETAMINOPHEN 325 MG TABLET PO PRN (13:46)
--- NOTE | 2018-03-15 16:08 | PDOC H&P ---
History of Present Illness Admission Date/PCP: 03/14/18 20:22 JUSTIN HYMAN MD Patient complains of: He complained of fever on the day of presentation. History of Present Illness: GERDA NICK is a 63 year old male with hx of HTN/ Hyperlipidemia/Chronic smoker who was diagnosed with acute myeloblastic leukamia and is getting chemotherapy at [facility]. He just got the 3 rd cycle or Cytarabine and Daunorubicin and he started having fever on the day of presentation, associated with malaise. He denied cough, chest pain, nausea/vomiting, dysuria, frequency. On account of these, he came to ER and he was admitted for febrile neutropenia. Past Medical History Cardiac Medical History: Reports: Hyperlipidema Malignancy Medical History: Reports: Leukemia - Acute myeloid leukemia Psychiatric Medical History: Denies: Depression Hematology: Reports: Anemia, Bleeding Tendencies Past Surgical History Past Surgical History: Reports: Other - Bone marrow biopsy, Hernia repair. Social History Lives with: Family Smoking Status: Never Smoker Cigarettes Packs Per Day: 1 Number of Years Smokin Last Time Smoked: 03/14/2018 Frequency of Alcohol Use: Occasional Hx Recreational Drug Use: Yes Drugs: Marijuana Hx Prescription Drug Abuse: No Family History Family History: Reviewed & Not Pertinent Parental Family History Reviewed: Yes Children Family History Reviewed: Yes Sibling(s) Family History Reviewed.: Yes Medication/Allergy Home Medications: Fluconazole [Diflucan] 400 mg PO DAILY 03/14/18 Levofloxacin [Levaquin 500 mg Tablet] 500 mg PO DAILY 03/14/18 Valacyclovir HCl [Valacyclovir] 500 mg PO DAILY 03/14/18 Allergies/Adverse Reactions: No Known Allergies Allergy (Verified 03/14/18 18:47) Review of Systems All systems: as per PMH Constitutional: PRESENT: as per HPI, fatigue, fever(s), weakness Eyes: PRESENT: as per HPI Ears: PRESENT: as per HPI Nose, Mouth, and Throat: PRESENT: as per HPI Breasts: PRESENT: as per HPI Cardiovascular: PRESENT: as per HPI Respiratory: PRESENT: as per HPI Gastrointestinal: PRESENT: as per HPI Genitourinary: PRESENT: as per HPI Musculoskeletal: PRESENT: as per HPI Integumentary: PRESENT: as per HPI Neurological: PRESENT: as per HPI Psychiatric: PRESENT: as per HPI Endocrine: PRESENT: as per HPI Hematologic/Lymphatic: PRESENT: as per HPI Physical Exam Vital Signs: Temp Pulse Resp BP Pulse Ox 100.1 F 96 22 H 102/54 L 95 03/15/18 15:37 03/15/18 15:37 03/15/18 15:37 03/15/18 15:37 03/15/18 15:37 Intake & Output 03/14/18 03/15/18 03/16/18 06:59 06:59 06:59 Intake Total 1100 0 Output Total 325 Balance 775 0 Weight 69.9 kg General appearance: PRESENT: no acute distress, cooperative, well-developed, well-nourished Head exam: PRESENT: atraumatic, normocephalic Eye exam: PRESENT: conjunctiva pale, EOMI, PERRLA Ear exam: PRESENT: normal external ear exam, TM's normal bilaterally Mouth exam: PRESENT: neck supple, tongue midline Neck exam: PRESENT: full ROM Respiratory exam: PRESENT: clear to auscultation henri, symmetrical Cardiovascular exam: PRESENT: +S1, +S2 Pulses: PRESENT: +2 pedal pulses bilateral GI/Abdominal exam: PRESENT: normal bowel sounds, soft Rectal exam: PRESENT: deferred Extremities exam: PRESENT: full ROM Musculoskeletal exam: PRESENT: full ROM Neurological exam: PRESENT: alert, awake, oriented to person, oriented to place , oriented to time Psychiatric exam: PRESENT: normal mood Results Laboratory Results: 03/15/18 04:00 03/15/18 04:00 03/14/18 03/14/18 03/14/18 21:30 21:30 21:30 WBC 0.1 L* RBC 2.57 L Hgb 9.0 L Hct 24.2 L MCV 94 MCH 35.1 H MCHC 37.4 H RDW 13.2 Plt Count 8 L* Seg Neutrophils % 3.2 L Lymphocytes % 91.0 H Monocytes % 1.3 L Eosinophils % 4.5 Basophils % 0.0 Absolute Neutrophils 0.0 L Absolute Lymphocytes 0.1 L Absolute Monocytes 0.0 L Absolute Eosinophils 0.0 Absolute Basophils 0.0 VBG pH VBG pCO2 VBG HCO3 VBG Base Excess Sodium 136.8 L Potassium 3.7 Chloride 98 Carbon Dioxide 28 Anion Gap 11 BUN 18 Creatinine 0.78 Est GFR ( Amer) > 60 Est GFR (Non-Af Amer) > 60 Glucose 117 H Lactic Acid 0.9 Calcium 9.1 Total Bilirubin 0.8 AST 19 ALT 25 Alkaline Phosphatase 66 Total Protein 6.1 L Albumin 3.7 Triglycerides Cholesterol LDL Cholesterol Direct VLDL Cholesterol HDL Cholesterol Blood Type 03/14/18 03/15/18 03/15/18 21:30 04:00 04:00 WBC 0.1 L* RBC 2.29 L Hgb 8.0 L Hct 21.5 L MCV 94 MCH 35.1 H MCHC 37.3 H RDW 13.2 Plt Count 6 L* Seg Neutrophils % Not Reportable Lymphocytes % Not Reportable Monocytes % Not Reportable Eosinophils % Not Reportable Basophils % Not Reportable Absolute Neutrophils Not Reportable Absolute Lymphocytes Not Reportable Absolute Monocytes Not Reportable Absolute Eosinophils Not Reportable Absolute Basophils Not Reportable VBG pH 7.49 H VBG pCO2 37.7 VBG HCO3 28.2 VBG Base Excess 4.6 Sodium 136.0 L Potassium 3.7 Chloride 101 Carbon Dioxide 25 Anion Gap 10 BUN 15 Creatinine 0.85 Est GFR ( Amer) > 60 Est GFR (Non-Af Amer) > 60 Glucose 106 Lactic Acid Calcium 8.4 Total Bilirubin 0.8 AST 17 ALT 25 Alkaline Phosphatase 50 Total Protein 5.6 L Albumin 3.2 L Triglycerides 84 Cholesterol 124.99 LDL Cholesterol Direct Not Reportable VLDL Cholesterol 17.0 HDL Cholesterol 48 Blood Type 03/15/18 09:15 WBC RBC Hgb Hct MCV MCH MCHC RDW Plt Count Seg Neutrophils % Lymphocytes % Monocytes % Eosinophils % Basophils % Absolute Neutrophils Absolute Lymphocytes Absolute Monocytes Absolute Eosinophils Absolute Basophils VBG pH VBG pCO2 VBG HCO3 VBG Base Excess Sodium Potassium Chloride Carbon Dioxide Anion Gap BUN Creatinine Est GFR ( Amer) Est GFR (Non-Af Amer) Glucose Lactic Acid Calcium Total Bilirubin AST ALT Alkaline Phosphatase Total Protein Albumin Triglycerides Cholesterol LDL Cholesterol Direct VLDL Cholesterol HDL Cholesterol Blood Type O NEGATIVE Impressions: Chest X-Ray 03/14/18 19:00 IMPRESSION: Chronic lung changes. No acute findings. Assessment & Plan - Diagnosis (1) Febrile neutropenia Is this a current diagnosis for this admission?: Yes Plan: Ct with Cefepime 2 G Q8H IV; Vancomycin IV as per [facility] protocol; Tylenol 650 mg q6h prn po; F/U blood cultures. F/u hematology/oncology. (2) Pancytopenia Is this a current diagnosis for this admission?: Yes Plan: F/u with Hematology/oncology for PRBC and Neupogen as indicated. F/u daily CBC. (3) AML (acute myeloblastic leukemia) Qualifiers: Leukemia Active/Remission status: without remission Qualified Code(s): C92.00 - Acute myeloblastic leukemia, not having achieved remission Is this a current diagnosis for this admission?: Yes Plan: F/u hematology/oncology for mgt. (4) DVT prophylaxis Is this a current diagnosis for this admission?: Yes Plan: Hold Lovenox and SCD for now due to risk of bleeding from thrombocytopenia. - Time Time Spent: 30 to 50 Minutes Smoking Cessation Education: 3 to 10 minutes Medications reviewed and adjusted accordingly: Yes Anticipated discharge: Home Within: within 72 hours - Inpatient Certification Medical Necessity: Failure to Improve With Outpatient Therapy, Significant Comorbidiites Make Outpatient Treatment Too Risky, Need Close Monitoring Due to Risk of Patient Decompensation, Need for IV Antibiotics, Risk of Complication if Not Cared For in Hospital, Risk of Diagnosis Which Will Require Inpatient Eval/Care/Monitoring
[2018-03-15] MEDS ORDERED: LANSOPRAZOLE 30 MG TAB.RAP.DR PO SCH (18:00)
[2018-03-15 20:47] LABS: APPEARANCE,URINE CLEAR; BILIRUBIN,URINE NEGATIVE (NEGATIVE); COLOR,URINE YELLOW; GLUCOSE, URINE NEGATIVE (NEGATIVE); KETONES,URINE TRACE mg/dL (NEGATIVE); LEUKOCYTE ESTERASE,URINE NEGATIVE (NEGATIVE); NITRITE,URINE NEGATIVE (NEGATIVE); PROTEIN,URINE NEGATIVE (NEGATIVE); URINE SPECIFIC GRAVITY 1.012; UROBILINOGEN,URINE NEGATIVE mg/dL (<2.0)
[2018-03-15] MEDS: ZOLPIDEM TARTRATE 5 MG TABLET PO SCH (21:46)
[2018-03-16] MEDS: ACETAMINOPHEN 325 MG TABLET PO PRN (00:51)
[2018-03-16] MEDS: CEFEPIME 2 GM/D5W RTU 2 GM/50 ML RTUPB IV SCH ×3 (05:21→22:24)
--- NOTE | 2018-03-16 08:47 | PDOC PROGRESS REPORT ---
Subjective Progress Note for:: 03/16/18 Subjective:: Today had a long discussion with patient as well as his leukemia Dr., Dr. Webster. I have discussed his case with blood bank as well, he will need daily leuko-reduced and irradiated platelets, 2/2 blood cultures were positive for GPC 's. So we discussed removal of the Moctezuma catheter. Dr. Webster agrees. I placed that order. Plan for transfusion of blood products if hemoglobin gets under 7. He is still febrile, continue current antibiotic therapy until he is afebrile for 24 hours and we have speciation of the GPC's. Reason For Visit: FEBRILE NEUTROPENIA Physical Exam Vital Signs: Temp Pulse Resp BP Pulse Ox 100.3 F 78 22 H 111/44 L 98 03/16/18 07:30 03/16/18 07:30 03/16/18 07:30 03/16/18 07:30 03/16/18 07:30 Intake & Output 03/15/18 03/16/18 03/17/18 06:59 06:59 06:59 Intake Total 1100 1298 Output Total 325 Balance 775 1298 Weight 69.9 kg 69.2 kg General appearance: PRESENT: no acute distress, well-developed, well-nourished Head exam: PRESENT: atraumatic, normocephalic Eye exam: PRESENT: conjunctiva pink, EOMI, PERRLA. ABSENT: scleral icterus Ear exam: PRESENT: normal external ear exam Mouth exam: PRESENT: moist, tongue midline Neck exam: ABSENT: carotid bruit, JVD, lymphadenopathy, thyromegaly Respiratory exam: PRESENT: clear to auscultation henri. ABSENT: rales, rhonchi, wheezes Cardiovascular exam: PRESENT: RRR. ABSENT: diastolic murmur, rubs, systolic murmur Pulses: PRESENT: normal dorsalis pedis pul Vascular exam: PRESENT: normal capillary refill GI/Abdominal exam: PRESENT: normal bowel sounds, soft. ABSENT: distended, guarding, mass, organolmegaly, rebound, tenderness Rectal exam: PRESENT: deferred Extremities exam: PRESENT: full ROM. ABSENT: calf tenderness, clubbing, pedal edema Neurological exam: PRESENT: alert, awake, oriented to person, oriented to place , oriented to time, oriented to situation, CN II-XII grossly intact. ABSENT: motor sensory deficit Psychiatric exam: PRESENT: appropriate affect, normal mood. ABSENT: homicidal ideation, suicidal ideation Skin exam: PRESENT: dry, intact, warm. ABSENT: cyanosis, rash Results Laboratory Results: 03/15/18 04:00 03/15/18 04:00 03/15/18 03/15/18 09:15 20:20 Urine Color YELLOW Urine Appearance CLEAR Urine pH 7.0 Ur Specific [place] 1.012 Urine Protein NEGATIVE Urine Glucose (UA) NEGATIVE Urine Ketones TRACE H Urine Blood NEGATIVE Urine Nitrite NEGATIVE Ur Leukocyte Esterase NEGATIVE Urine WBC (Auto) 1 Urine RBC (Auto) 1 Blood Type O NEGATIVE Impressions: Chest X-Ray 03/14/18 19:00 IMPRESSION: Chronic lung changes. No acute findings. Assessment & Plan - Diagnosis (1) Neutropenic fever Is this a current diagnosis for this admission?: Yes Plan: Neutropenic fever, continue broad-spectrum antibiotics, GPC's in blood, awaiting cultures/speciation (2) Sepsis Qualifiers: Sepsis type: Streptococcus, unspecified Qualified Code(s): A40.9 - Streptococcal sepsis, unspecified; A40 - Streptococcal sepsis Is this a current diagnosis for this admission?: Yes Plan: Most likely strep or staph, probably a true pathogen because patient is febrile still after 24 hours of broad-spectrum antibiotics. We will remove Moctezuma catheter, place peripheral IV and once cultures are cleared plan for PICC line placement. (3) AML (acute myeloblastic leukemia) Qualifiers: Leukemia Active/Remission status: without remission Qualified Code(s): C92.00 - Acute myeloblastic leukemia, not having achieved remission Is this a current diagnosis for this admission?: Yes Plan: Patient received consolidation chemotherapy #2, he more chemotherapy at this point, only count recovery then bone marrow biopsy to assess response. At that time if he is in her full remission then he would just be monitored thereafter. (4) Thrombocytopenia Is this a current diagnosis for this admission?: Yes Plan: Secondary to chemotherapy, plan for continued transfusion on a daily basis of leuko-reduced and irradiated platelets. Probable pancytopenia for the next couple months. Will need blood support (5) Anemia associated with chemotherapy Is this a current diagnosis for this admission?: Yes Plan: Continue to monitor, hemoglobin is 8 most recently, once it gets under 7 plan for transfusion of packed red blood cells leuko-reduced and irradiated. - Time Time Spent with patient: 35 or more minutes - Inpatient Certification Based on my medical assessment, after consideration of the patient's comorbidities, presenting symptoms, or acuity I expect that the services needed warrant INPATIENT care.: Yes I certify that my determination is in accordance with my understanding of Medicare's requirements for reasonable and necessary INPATIENT services [42 CFR 412.3e].: Yes Medical Necessity: Need For IV Fluids, Need for IV Antibiotics, Risk of Complication if Not Cared For in Hospital
[2018-03-16] MEDS ORDERED: METHYLPREDNISOLONE INJ 40 MG/1 ML SDV IV PRN (08:50)
[2018-03-16] MEDS ORDERED: FAMOTIDINE INJ/PF 20 MG/2 ML SDV IV PRN (08:51)
[2018-03-16] MEDS ORDERED: ACETAMINOPHEN 325 MG TABLET PO PRN (08:52)
[2018-03-16] MEDS ORDERED: DIPHENHYDRAMINE HCL 25 MG CAPSULE PO PRN (08:52)
[2018-03-16] MEDS: VANCOMYCIN HCL 1,000 MG in DEXTROSE 5%-WATER 250 ML IV SCH ×2 (10:41→18:26)
[2018-03-16] MEDS: NICOTINE 21 MG/24 HR PATCH.TD24 TD SCH (10:42)
[2018-03-16 11:12] LABS: EOSINOPHILS % (AUTO) 1.1 % (0-6); HEMOGLOBIN 8.1 g/dL (13.5-17.0); LYMPHOCYTES % (AUTO) 68.9 % (13-45); MEAN CORPUSCULAR HEMOGLOBIN 35.1 pg (27.0-33.4); MEAN CORPUSCULAR VOLUME 91 fl (80-97); MONOCYTES % (AUTO) 24.4 % (3-13); RED CELL DISTRIBUTION WIDTH 13.2 % (11.5-14.0); SEGMENTED NEUTROPHILS % (AUTO) 5.6 % (42-78); TOTAL CELLS COUNTED % (AUTO) 100 %
[2018-03-16 11:29] LABS: ALANINE AMINOTRANSFERASE 28 U/L (21-72); ALBUMIN 3.3 g/dL (3.5-5.0); ALKALINE PHOSPHATASE 48 U/L (38-126); ANION GAP 13 (5-19); ASPARTATE AMINO TRANSFERASE 39 U/L (17-59); BILIRUBIN,DIRECT 0.3 mg/dL (0.0-0.4); BILIRUBIN,TOTAL 0.9 mg/dL (0.2-1.3); BLOOD UREA NITROGEN 17 mg/dL (7-20); CARBON DIOXIDE 24 mmol/L (22-30); CHLORIDE 101 mmol/L (98-107); GLUCOSE 135 mg/dL (75-110); MEAN CORPUSCULAR HGB CONC 38.4 g/dL (32.0-36.0); PLATELET COUNT 10 10^3/uL (150-450); POTASSIUM 3.8 mmol/L (3.6-5.0); SODIUM 137.6 mmol/L (137-145); TOTAL PROTEIN 5.9 g/dL (6.3-8.2)
[2018-03-16 11:33] LABS: VANCOMYCIN,TROUGH 6.8 ug/mL (5.0-20.0)
[2018-03-16 11:53] LABS: WHITE BLOOD COUNT 0.1 10^3/uL (4.0-10.5)
[2018-03-16 12:03] LABS: PLATELET COMMENT DECREASED
[2018-03-16] MEDS ORDERED: KETAMINE HCL INJ 500 MG/10 ML VIAL ONE (12:20)
[2018-03-16] MEDS ORDERED: MIDAZOLAM 2 MG/2 ML INJ ONE (12:20)
[2018-03-16] MEDS ORDERED: FENTANYL CITRATE INJ/PF 100 MCG/2 ML AMPUL ONE (12:20)
[2018-03-16] MEDS ORDERED: PROPOFOL INJ 200 MG/20 ML VIAL IV ONE (12:20)
[2018-03-16] MEDS ORDERED: LIDOCAINE 0.5% INJ-PF (5 MG/ML) 50 ML SDV ONE (12:43)
[2018-03-16] MEDS ORDERED: BUPIVACAINE HCL 0.5 % INJ/PF 30 ML SDV ONE (12:43)
[2018-03-16] MEDS ORDERED: LIDOCAINE 1%/EPINEPHRINE INJ 20 ML VIAL ONE (13:30)
[2018-03-16] MEDS ORDERED: PROMETHAZINE HCL INJ 25 MG/1 ML VIAL IV PRN ×2 (13:32)
[2018-03-16] MEDS ORDERED: DIPHENHYDRAMINE HCL 50 MG/ML VIAL IV PRN (13:32)
[2018-03-16] MEDS ORDERED: OXYCODONE-ACETAMINOPHEN 5-325 MG TABLET PO PRN ×3 (13:32→14:18)
[2018-03-16] MEDS ORDERED: FENTANYL CITRATE INJ/PF 100 MCG/2 ML AMPUL IV PRN ×3 (13:32)
[2018-03-16] MEDS ORDERED: MEPERIDINE HCL/PF INJ 25 MG/1 ML DISP.SYRIN IV PRN (13:32)
--- NOTE | 2018-03-16 16:32 | PDOC PROGRESS REPORT ---
Subjective Progress Note for:: 03/16/18 Subjective:: He had platelet transfusion yesterday and will getting it daily as per oncologist. He still has poor appetite, but is very cheerful.His blood cultures showed Gram positive cocci in chains; so we will continue with present antibiotics pending final sensitivity result. Reason For Visit: FEBRILE NEUTROPENIA Physical Exam Vital Signs: Temp Pulse Resp BP Pulse Ox 98.5 F 89 18 97/58 L 96 03/16/18 15:10 03/16/18 15:10 03/16/18 15:10 03/16/18 15:10 03/16/18 15:10 Intake & Output 03/15/18 03/16/18 03/17/18 06:59 06:59 06:59 Intake Total 1100 1298 700 Output Total 325 5 Balance 775 1298 695 Weight 69.9 kg 69.2 kg General appearance: PRESENT: no acute distress, cooperative, well-developed, well-nourished Head exam: PRESENT: atraumatic, normocephalic Eye exam: PRESENT: conjunctiva pale, EOMI, PERRLA Ear exam: PRESENT: normal external ear exam, TM's normal bilaterally Mouth exam: PRESENT: moist, neck supple, tongue midline Neck exam: PRESENT: full ROM Respiratory exam: PRESENT: clear to auscultation henri, symmetrical Cardiovascular exam: PRESENT: +S1, +S2 Pulses: PRESENT: +2 pedal pulses bilateral GI/Abdominal exam: PRESENT: normal bowel sounds, soft Rectal exam: PRESENT: deferred Extremities exam: PRESENT: full ROM Musculoskeletal exam: PRESENT: full ROM Neurological exam: PRESENT: alert, awake, oriented to person, oriented to place , oriented to time Psychiatric exam: PRESENT: normal mood Results Laboratory Results: 03/16/18 10:35 03/16/18 10:35 03/15/18 03/16/18 03/16/18 20:20 10:35 10:35 WBC 0.1 L* RBC 2.30 L Hgb 8.1 L Hct 21.0 L MCV 91 MCH 35.1 H MCHC 38.4 H RDW 13.2 Plt Count 10 L* Seg Neutrophils % 5.6 L Lymphocytes % 68.9 H Monocytes % 24.4 H Eosinophils % 1.1 Basophils % 0.0 Absolute Neutrophils 0.0 L Absolute Lymphocytes 0.0 L Absolute Monocytes 0.0 L Absolute Eosinophils 0.0 Absolute Basophils 0.0 Sodium 137.6 Potassium 3.8 Chloride 101 Carbon Dioxide 24 Anion Gap 13 BUN 17 Creatinine 0.68 Est GFR ( Amer) > 60 Est GFR (Non-Af Amer) > 60 Glucose 135 H Calcium 9.0 Total Bilirubin 0.9 AST 39 ALT 28 Alkaline Phosphatase 48 Total Protein 5.9 L Albumin 3.3 L Urine Color YELLOW Urine Appearance CLEAR Urine pH 7.0 Ur Specific [place] 1.012 Urine Protein NEGATIVE Urine Glucose (UA) NEGATIVE Urine Ketones TRACE H Urine Blood NEGATIVE Urine Nitrite NEGATIVE Ur Leukocyte Esterase NEGATIVE Urine WBC (Auto) 1 Urine RBC (Auto) 1 Impressions: Chest X-Ray 03/14/18 19:00 IMPRESSION: Chronic lung changes. No acute findings. Assessment & Plan - Diagnosis (1) Febrile neutropenia Is this a current diagnosis for this admission?: Yes Plan: Ct with Cefepime 2 G Q8H IV; Vancomycin IV as per [facility] protocol; Tylenol 650 mg q6h prn po; F/U blood cultures. F/u hematology/oncology. (2) Pancytopenia Is this a current diagnosis for this admission?: Yes Plan: F/u with Hematology/oncology for PRBC and Platelets as indicated. F/u daily CBC. (3) Thrombocytopenia Is this a current diagnosis for this admission?: Yes Plan: Ct with Platelets transfusion as ordered by neurobiologist/oncologist; monitor CBC daily. (4) AML (acute myeloblastic leukemia) Qualifiers: Leukemia Active/Remission status: without remission Qualified Code(s): C92.00 - Acute myeloblastic leukemia, not having achieved remission Is this a current diagnosis for this admission?: Yes Plan: F/u hematology/oncology for mgt. (5) DVT prophylaxis Is this a current diagnosis for this admission?: Yes Plan: Hold Lovenox and SCD for now due to risk of bleeding from thrombocytopenia.
[2018-03-16] MEDS: ZOLPIDEM TARTRATE 5 MG TABLET PO SCH (22:23)
[2018-03-17] MEDS: VANCOMYCIN HCL 1,000 MG in DEXTROSE 5%-WATER 250 ML IV SCH ×2 (02:20→10:06)
[2018-03-17 04:27] LABS: ABSOLUTE LYMPHOCYTES (AUTO) 0.1 10^3/uL (0.5-4.7); ABSOLUTE NEUT (AUTO) 0.1 10^3/uL (1.7-8.2); HEMATOCRIT 21.7 % (37.9-51.0); HEMOGLOBIN 8.4 g/dL (13.5-17.0); LYMPHOCYTES % (AUTO) 33.3 % (13-45); MEAN CORPUSCULAR HEMOGLOBIN 35.4 pg (27.0-33.4); MEAN CORPUSCULAR VOLUME 91 fl (80-97); MONOCYTES % (AUTO) 27.7 % (3-13); RED BLOOD COUNT 2.38 10^6/uL (4.35-5.55); TOTAL CELLS COUNTED % (AUTO) 100 %
[2018-03-17 04:34] LABS: MEAN CORPUSCULAR HGB CONC 38.8 g/dL (32.0-36.0)
[2018-03-17 04:35] LABS: PLATELET COUNT 34 10^3/uL (150-450)
[2018-03-17 04:38] LABS: WHITE BLOOD COUNT 0.2 10^3/uL (4.0-10.5)
[2018-03-17 04:48] LABS: ALANINE AMINOTRANSFERASE 25 U/L (21-72); ALBUMIN 3.4 g/dL (3.5-5.0); ALKALINE PHOSPHATASE 47 U/L (38-126); ANION GAP 10 (5-19); ASPARTATE AMINO TRANSFERASE 32 U/L (17-59); BILIRUBIN,DIRECT 0.3 mg/dL (0.0-0.4); BLOOD UREA NITROGEN 23 mg/dL (7-20); CALCIUM 9.1 mg/dL (8.4-10.2); CARBON DIOXIDE 27 mmol/L (22-30); CHLORIDE 104 mmol/L (98-107); GLUCOSE 146 mg/dL (75-110); POTASSIUM 4.3 mmol/L (3.6-5.0); SODIUM 140.7 mmol/L (137-145); TOTAL PROTEIN 6.2 g/dL (6.3-8.2)
[2018-03-17 04:54] LABS: OVALOCYTES 1+; PLATELET COMMENT DECREASED; POIKILOCYTOSIS SLIGHT; SCHISTOCYTES SLIGHT
[2018-03-17] MEDS: CEFEPIME 2 GM/D5W RTU 2 GM/50 ML RTUPB IV SCH ×3 (06:28→21:11)
[2018-03-17] MEDS: ACETAMINOPHEN 325 MG TABLET PO PRN (06:29)
--- NOTE | 2018-03-17 07:52 | OPERATIVE REPORT E ---
Operative Report NAME: GERDA NICK : 1955 AGE: 63Y DATE OF SURGERY: 03/16/2018 ROOM: 323 PREOPERATIVE DIAGNOSIS: NEUTROPENIA WITH SEPSIS AND INVOLVEMENT OF CANALES CATHETER. POSTOPERATIVE DIAGNOSIS: NEUTROPENIA WITH SEPSIS AND INVOLVEMENT OF CANALES CATHETER. OPERATION: Removal of Canales catheter. SURGEON: HOLLY CARRIZALES M.D. ANESTHESIA: Local MAC. INDICATIONS: This is a 63-year-old male with neutropenia. Noted to have fever. Has a Canales catheter placed for blood products and medications. Patient has been having fever for the past few days. This was despite IV antibiotic therapy. Because of this, the Canales catheter needed to be removed, and afterwards, when afebrile, will likely need a PICC line. PROCEDURE: After adequate IV sedation, patient was placed in supine position, and the right chest around the Canales catheter was then prepped and draped in the usual sterile fashion. Appropriate timeout was called. Next, the felt around the catheter was palpated, which was just below the clavicle and proximal to the insertion site, was then injected with 1% Xylocaine with epinephrine. Next, about a 1-cm incision along the catheter was then made, and the felt was then dissected of adhesions around the subcutaneous area. The felt ans catheter was then grasped with a hemostat and the catheter that was clean at the subcutaneous area was then divided and the proximal part of the catheter was then pulled out. Next, the felt was completely dissected of the adhesions around the subcutaneous area. It was then pulled out slightly and the [id number] suture using 3-0 PDS was then placed around the catheter, proximal to the felt. The pseudo capsule around the catheter, just proximal to the felt, was subsequently divided with the scissors. The vncipj-by-orizs suture was lifted up, making it snug around the catheter, and the catheter subsequently pulled out. The [id number]-[id number] suture was then tied to prevent any backbleeding. The tip of the catheter removed was sent for C and S. There was no active bleeding noted, and incision site was left open and dressed with a layer of Xeroform gauze and a sterile dressing. Patient tolerated procedure well. Needle, instrument and sponge counts were all correct. Estimated blood loss was less than 2 mL. Patient tolerated procedure well and brought to recovery in satisfactory condition. DICTATING PHYSICIAN: HOLLY CARRIZALES M.D. [id number] PHY#: [id number] ID: [id number] JOB#: [id number] ACCT: [id number] cc:HOLLY CARRIZALES M.D. > MTDD
[2018-03-17] MEDS ORDERED: NORMAL SALINE 1000 ML 1,000 ML IV PRN (08:44)
--- NOTE | 2018-03-17 09:05 | PDOC PROGRESS REPORT ---
Subjective Progress Note for:: 03/17/18 Subjective:: Patient less febrile over the last 24 hours, still had fever of 99. Hypotensive this morning, giving 1 L normal saline bolus as well as starting continuous fluids. Encouraged increased p.o. intake. His line was removed yesterday and peripheral IV placed. Continue with current IV antibiotic regimen until we have speciation. By tomorrow if there is afebrile for 24 hours then repeat cultures and plan PICC line placement on Wednesday. And then he can consider discharge home with IV antibiotics. Continue with platelets this morning. Reason For Visit: FEBRILE NEUTROPENIA Physical Exam Vital Signs: Temp Pulse Resp BP Pulse Ox 99.1 F 91 16 89/52 L 97 03/17/18 07:32 03/17/18 07:32 03/17/18 07:32 03/17/18 07:32 03/17/18 07:32 Intake & Output 03/16/18 03/17/18 03/18/18 06:59 06:59 06:59 Intake Total 1298 1542 50 Output Total 5 Balance 1298 1537 50 Weight 69.2 kg 68.5 kg General appearance: PRESENT: no acute distress, well-developed, well-nourished Head exam: PRESENT: atraumatic, normocephalic Eye exam: PRESENT: conjunctiva pink, EOMI, PERRLA. ABSENT: scleral icterus Ear exam: PRESENT: normal external ear exam Mouth exam: PRESENT: moist, tongue midline Neck exam: ABSENT: carotid bruit, JVD, lymphadenopathy, thyromegaly Respiratory exam: PRESENT: clear to auscultation henri. ABSENT: rales, rhonchi, wheezes Cardiovascular exam: PRESENT: RRR. ABSENT: diastolic murmur, rubs, systolic murmur Pulses: PRESENT: normal dorsalis pedis pul Vascular exam: PRESENT: normal capillary refill GI/Abdominal exam: PRESENT: normal bowel sounds, soft. ABSENT: distended, guarding, mass, organolmegaly, rebound, tenderness Rectal exam: PRESENT: deferred Extremities exam: PRESENT: full ROM. ABSENT: calf tenderness, clubbing, pedal edema Neurological exam: PRESENT: alert, awake, oriented to person, oriented to place , oriented to time, oriented to situation, CN II-XII grossly intact. ABSENT: motor sensory deficit Psychiatric exam: PRESENT: appropriate affect, normal mood. ABSENT: homicidal ideation, suicidal ideation Skin exam: PRESENT: dry, intact, warm. ABSENT: cyanosis, rash Results Laboratory Results: 03/17/18 04:06 03/17/18 04:06 03/15/18 03/16/18 03/16/18 09:15 10:35 10:35 WBC 0.1 L* RBC 2.30 L Hgb 8.1 L Hct 21.0 L MCV 91 MCH 35.1 H MCHC 38.4 H RDW 13.2 Plt Count 10 L* Seg Neutrophils % 5.6 L Lymphocytes % 68.9 H Monocytes % 24.4 H Eosinophils % 1.1 Basophils % 0.0 Absolute Neutrophils 0.0 L Absolute Lymphocytes 0.0 L Absolute Monocytes 0.0 L Absolute Eosinophils 0.0 Absolute Basophils 0.0 Sodium 137.6 Potassium 3.8 Chloride 101 Carbon Dioxide 24 Anion Gap 13 BUN 17 Creatinine 0.68 Est GFR ( Amer) > 60 Est GFR (Non-Af Amer) > 60 Glucose 135 H Calcium 9.0 Total Bilirubin 0.9 AST 39 ALT 28 Alkaline Phosphatase 48 Total Protein 5.9 L Albumin 3.3 L Blood Type O NEGATIVE 03/17/18 03/17/18 04:06 04:06 WBC 0.2 L* RBC 2.38 L Hgb 8.4 L Hct 21.7 L MCV 91 MCH 35.4 H MCHC 38.8 H RDW 13.0 Plt Count 34 L D Seg Neutrophils % 39.0 L Lymphocytes % 33.3 Monocytes % 27.7 H Eosinophils % 0.0 Basophils % 0.0 Absolute Neutrophils 0.1 L Absolute Lymphocytes 0.1 L Absolute Monocytes 0.0 L Absolute Eosinophils 0.0 Absolute Basophils 0.0 Sodium 140.7 Potassium 4.3 Chloride 104 Carbon Dioxide 27 Anion Gap 10 BUN 23 H Creatinine 0.82 Est GFR ( Amer) > 60 Est GFR (Non-Af Amer) > 60 Glucose 146 H Calcium 9.1 Total Bilirubin 1.0 AST 32 ALT 25 Alkaline Phosphatase 47 Total Protein 6.2 L Albumin 3.4 L Blood Type Impressions: Chest X-Ray 03/14/18 19:00 IMPRESSION: Chronic lung changes. No acute findings. Assessment & Plan - Diagnosis (1) Neutropenic fever Is this a current diagnosis for this admission?: Yes Plan: Improving, continue current regimen, plan as above (2) Sepsis Qualifiers: Sepsis type: Streptococcus, unspecified Qualified Code(s): A40.9 - Streptococcal sepsis, unspecified; A40 - Streptococcal sepsis Is this a current diagnosis for this admission?: Yes (3) AML (acute myeloblastic leukemia) Qualifiers: Leukemia Active/Remission status: without remission Qualified Code(s): C92.00 - Acute myeloblastic leukemia, not having achieved remission Is this a current diagnosis for this admission?: Yes Plan: We will continue to to need transfusion support over the next few weeks. (4) Thrombocytopenia Is this a current diagnosis for this admission?: Yes Plan: Improved, continue platelets today. (5) Anemia associated with chemotherapy Is this a current diagnosis for this admission?: Yes Plan: Hemoglobin improved - Time Time Spent with patient: 35 or more minutes - Inpatient Certification Based on my medical assessment, after consideration of the patient's comorbidities, presenting symptoms, or acuity I expect that the services needed warrant INPATIENT care.: Yes I certify that my determination is in accordance with my understanding of Medicare's requirements for reasonable and necessary INPATIENT services [42 CFR 412.3e].: Yes Medical Necessity: Need for IV Antibiotics
[2018-03-17] MEDS: NICOTINE 21 MG/24 HR PATCH.TD24 TD SCH (10:06)
[2018-03-17] MEDS: NORMAL SALINE 1000 ML 1,000 ML IV PRN (10:06)
[2018-03-17 10:54] LABS: VANCOMYCIN,TROUGH 6.3 ug/mL (5.0-20.0)
[2018-03-17] MEDS ORDERED: DIPHENHYDRAMINE HCL 25 MG CAPSULE ONE (14:27)
[2018-03-17] MEDS ORDERED: METHYLPREDNISOLONE INJ 125 MG/2 ML SDV ONE (14:27)
[2018-03-17] MEDS ORDERED: ACETAMINOPHEN 325 MG TABLET ONE (14:27)
[2018-03-17] MEDS ORDERED: FAMOTIDINE INJ/PF 20 MG/2 ML SDV IV ONE (14:28)
[2018-03-17] MEDS ORDERED: METHYLPREDNISOLONE INJ 40 MG/1 ML SDV IV PRN (14:38)
[2018-03-17] MEDS ORDERED: DIPHENHYDRAMINE HCL 25 MG CAPSULE PO PRN (14:39)
[2018-03-17] MEDS ORDERED: ACETAMINOPHEN 325 MG TABLET PO PRN (14:39)
[2018-03-17] MEDS ORDERED: FAMOTIDINE INJ/PF 20 MG/2 ML SDV IV PRN (14:40)
[2018-03-17] MEDS ORDERED: VANCOMYCIN HCL 1,250 MG in DEXTROSE 5%-WATER 250 ML IV SCH (15:00)
--- NOTE | 2018-03-17 16:26 | PDOC PROGRESS REPORT ---
Subjective Progress Note for:: 03/17/18 Subjective:: Pt still had low grade fever. He had removal of Moctezuma catheter yesterday.He also received platelet transfusion today. His platelet count has increased to 34 while WBC increased to 0.2. His HB/HCT is stable at 8.4/21.7. He had I liter bolus of normal saline this am and is presently at normal saline at 125cc/hr. Reason For Visit: FEBRILE NEUTROPENIA Physical Exam Vital Signs: Temp Pulse Resp BP Pulse Ox 99.2 F 87 19 86/56 L 98 03/17/18 15:25 03/17/18 15:25 03/17/18 15:25 03/17/18 15:25 03/17/18 15:25 Intake & Output 03/16/18 03/17/18 03/18/18 06:59 06:59 06:59 Intake Total 1298 1542 1550 Output Total 5 Balance 1298 1537 1550 Weight 69.2 kg 68.5 kg General appearance: PRESENT: no acute distress, cooperative, well-developed, well-nourished Head exam: PRESENT: atraumatic, normocephalic Eye exam: PRESENT: conjunctiva pale, EOMI, PERRLA Ear exam: PRESENT: normal external ear exam, TM's normal bilaterally Mouth exam: PRESENT: moist, neck supple, tongue midline Respiratory exam: PRESENT: clear to auscultation henri, symmetrical Cardiovascular exam: PRESENT: +S1, +S2 Pulses: PRESENT: +2 pedal pulses bilateral GI/Abdominal exam: PRESENT: normal bowel sounds, soft Rectal exam: PRESENT: deferred Extremities exam: PRESENT: full ROM Musculoskeletal exam: PRESENT: full ROM Neurological exam: PRESENT: alert, awake, oriented to person, oriented to place , oriented to time Psychiatric exam: PRESENT: normal mood Results Laboratory Results: 03/17/18 04:06 03/17/18 04:06 03/15/18 03/17/18 03/17/18 09:15 04:06 04:06 WBC 0.2 L* RBC 2.38 L Hgb 8.4 L Hct 21.7 L MCV 91 MCH 35.4 H MCHC 38.8 H RDW 13.0 Plt Count 34 L D Seg Neutrophils % 39.0 L Lymphocytes % 33.3 Monocytes % 27.7 H Eosinophils % 0.0 Basophils % 0.0 Absolute Neutrophils 0.1 L Absolute Lymphocytes 0.1 L Absolute Monocytes 0.0 L Absolute Eosinophils 0.0 Absolute Basophils 0.0 Sodium 140.7 Potassium 4.3 Chloride 104 Carbon Dioxide 27 Anion Gap 10 BUN 23 H Creatinine 0.82 Est GFR ( Amer) > 60 Est GFR (Non-Af Amer) > 60 Glucose 146 H Calcium 9.1 Total Bilirubin 1.0 AST 32 ALT 25 Alkaline Phosphatase 47 Total Protein 6.2 L Albumin 3.4 L Blood Type O NEGATIVE 03/15/18 20:20 Clean Catch Midstream Urine Culture - Final NO GROWTH 2 DAYS Impressions: Chest X-Ray 03/14/18 19:00 IMPRESSION: Chronic lung changes. No acute findings. Assessment & Plan - Diagnosis (1) Febrile neutropenia Is this a current diagnosis for this admission?: Yes Plan: Ct with Cefepime 2 G Q8H IV; Vancomycin IV as per [facility] protocol; Tylenol 650 mg q6h prn po; F/U blood cultures. F/u hematology/oncology. (2) Pancytopenia Is this a current diagnosis for this admission?: Yes Plan: F/u with Hematology/oncology for PRBC and Platelets as indicated. F/u daily CBC. (3) Thrombocytopenia Is this a current diagnosis for this admission?: Yes Plan: Ct with Platelets transfusion daily as ordered by display department manager/oncologist; monitor CBC daily. (4) AML (acute myeloblastic leukemia) Qualifiers: Leukemia Active/Remission status: without remission Qualified Code(s): C92.00 - Acute myeloblastic leukemia, not having achieved remission Is this a current diagnosis for this admission?: Yes Plan: F/u hematology/oncology for mgt. (5) DVT prophylaxis Is this a current diagnosis for this admission?: Yes Plan: Hold Lovenox and SCD for now due to risk of bleeding from thrombocytopenia. (6) Smoker Is this a current diagnosis for this admission?: Yes Plan: Ct with Nicotine patch 21 mg daily.
[2018-03-17] MEDS: ZOLPIDEM TARTRATE 5 MG TABLET PO SCH (21:10)
[2018-03-17] MEDS: VANCOMYCIN HCL 1,250 MG in DEXTROSE 5%-WATER 250 ML IV SCH (23:29)
[2018-03-18 04:31] LABS: ABSOLUTE LYMPHOCYTES (AUTO) 0.1 10^3/uL (0.5-4.7); ABSOLUTE MONOCYTES (AUTO) 0.2 10^3/uL (0.1-1.4); ABSOLUTE NEUT (AUTO) 0.3 10^3/uL (1.7-8.2); HEMATOCRIT 17.3 % (37.9-51.0); LYMPHOCYTES % (AUTO) 16.9 % (13-45); MEAN CORPUSCULAR HEMOGLOBIN 35.1 pg (27.0-33.4); MEAN CORPUSCULAR VOLUME 91 fl (80-97); MONOCYTES % (AUTO) 30.7 % (3-13); RED BLOOD COUNT 1.91 10^6/uL (4.35-5.55); RED CELL DISTRIBUTION WIDTH 12.6 % (11.5-14.0); SEGMENTED NEUTROPHILS % (AUTO) 52.4 % (42-78); TOTAL CELLS COUNTED % (AUTO) 100 %
[2018-03-18 04:37] LABS: MEAN CORPUSCULAR HGB CONC 38.7 g/dL (32.0-36.0)
[2018-03-18 04:38] LABS: PLATELET COUNT 34 10^3/uL (150-450)
[2018-03-18] MEDS: NORMAL SALINE 1000 ML 1,000 ML IV PRN ×2 (04:42→17:42)
[2018-03-18] MEDS: CEFEPIME 2 GM/D5W RTU 2 GM/50 ML RTUPB IV SCH ×3 (05:00→21:28)
[2018-03-18] MEDS: VANCOMYCIN HCL 1,250 MG in DEXTROSE 5%-WATER 250 ML IV SCH ×4 (05:00→23:23)
[2018-03-18 05:04] LABS: HEMOGLOBIN 6.7 g/dL (13.5-17.0); WHITE BLOOD COUNT 0.5 10^3/uL (4.0-10.5)
[2018-03-18 05:09] LABS: PLATELET COMMENT DECREASED
[2018-03-18 05:18] LABS: ALANINE AMINOTRANSFERASE 31 U/L (21-72); ALBUMIN 2.8 g/dL (3.5-5.0); ALKALINE PHOSPHATASE 40 U/L (38-126); ANION GAP 10 (5-19); ASPARTATE AMINO TRANSFERASE 25 U/L (17-59); BILIRUBIN,DIRECT 0.2 mg/dL (0.0-0.4); BILIRUBIN,TOTAL 0.8 mg/dL (0.2-1.3); BLOOD UREA NITROGEN 26 mg/dL (7-20); CALCIUM 8.4 mg/dL (8.4-10.2); CARBON DIOXIDE 23 mmol/L (22-30); CHLORIDE 109 mmol/L (98-107); GLUCOSE 139 mg/dL (75-110); POTASSIUM 4.3 mmol/L (3.6-5.0); SODIUM 141.6 mmol/L (137-145); TOTAL PROTEIN 5.3 g/dL (6.3-8.2)
[2018-03-18] MEDS ORDERED: METHYLPREDNISOLONE INJ 40 MG/1 ML SDV IV PRN (05:55)
[2018-03-18] MEDS ORDERED: DIPHENHYDRAMINE HCL 50 MG CAPSULE PO PRN (05:56)
[2018-03-18] MEDS ORDERED: FAMOTIDINE INJ/PF 20 MG/2 ML SDV IV PRN (05:57)
[2018-03-18] MEDS ORDERED: ACETAMINOPHEN 325 MG TABLET PO PRN (05:57)
--- NOTE | 2018-03-18 08:48 | PDOC PROGRESS REPORT ---
Subjective Progress Note for:: 03/18/18 Subjective:: Pt doing a little better, only 99 over last 24 hours, awaiting count recovery Reason For Visit: FEBRILE NEUTROPENIA Physical Exam Vital Signs: Temp Pulse Resp BP Pulse Ox 99.3 F 80 20 93/47 L 96 03/18/18 03:37 03/18/18 03:37 03/18/18 03:37 03/18/18 03:37 03/18/18 03:37 Intake & Output 03/17/18 03/18/18 03/19/18 06:59 06:59 06:59 Intake Total 1542 3730 Output Total 5 Balance 1537 3730 Weight 68.5 kg 69.8 kg General appearance: PRESENT: no acute distress, well-developed, well-nourished Head exam: PRESENT: atraumatic, normocephalic Eye exam: PRESENT: conjunctiva pink, EOMI, PERRLA. ABSENT: scleral icterus Ear exam: PRESENT: normal external ear exam Mouth exam: PRESENT: moist, tongue midline Neck exam: ABSENT: carotid bruit, JVD, lymphadenopathy, thyromegaly Respiratory exam: PRESENT: clear to auscultation henri. ABSENT: rales, rhonchi, wheezes Cardiovascular exam: PRESENT: RRR. ABSENT: diastolic murmur, rubs, systolic murmur Pulses: PRESENT: normal dorsalis pedis pul Vascular exam: PRESENT: normal capillary refill GI/Abdominal exam: PRESENT: normal bowel sounds, soft. ABSENT: distended, guarding, mass, organolmegaly, rebound, tenderness Rectal exam: PRESENT: deferred Extremities exam: PRESENT: full ROM. ABSENT: calf tenderness, clubbing, pedal edema Neurological exam: PRESENT: alert, awake, oriented to person, oriented to place , oriented to time, oriented to situation, CN II-XII grossly intact. ABSENT: motor sensory deficit Psychiatric exam: PRESENT: appropriate affect, normal mood. ABSENT: homicidal ideation, suicidal ideation Skin exam: PRESENT: dry, intact, warm. ABSENT: cyanosis, rash Results Laboratory Results: 03/18/18 04:12 03/18/18 04:12 03/15/18 03/18/18 03/18/18 09:15 04:12 04:12 WBC 0.5 L* RBC 1.91 L Hgb 6.7 L Hct 17.3 L MCV 91 MCH 35.1 H MCHC 38.7 H RDW 12.6 Plt Count 34 L Seg Neutrophils % 52.4 Lymphocytes % 16.9 Monocytes % 30.7 H Eosinophils % 0.0 Basophils % 0.0 Absolute Neutrophils 0.3 L Absolute Lymphocytes 0.1 L Absolute Monocytes 0.2 Absolute Eosinophils 0.0 Absolute Basophils 0.0 Sodium 141.6 Potassium 4.3 Chloride 109 H Carbon Dioxide 23 Anion Gap 10 BUN 26 H Creatinine 0.69 Est GFR ( Amer) > 60 Est GFR (Non-Af Amer) > 60 Glucose 139 H Calcium 8.4 Total Bilirubin 0.8 AST 25 ALT 31 Alkaline Phosphatase 40 Total Protein 5.3 L Albumin 2.8 L Blood Type O NEGATIVE Antibody Screen Not Reportable 03/18/18 05:39 WBC RBC Hgb Hct MCV MCH MCHC RDW Plt Count Seg Neutrophils % Lymphocytes % Monocytes % Eosinophils % Basophils % Absolute Neutrophils Absolute Lymphocytes Absolute Monocytes Absolute Eosinophils Absolute Basophils Sodium Potassium Chloride Carbon Dioxide Anion Gap BUN Creatinine Est GFR ( Amer) Est GFR (Non-Af Amer) Glucose Calcium Total Bilirubin AST ALT Alkaline Phosphatase Total Protein Albumin Blood Type O NEGATIVE Antibody Screen NEGATIVE 03/15/18 20:20 Clean Catch Midstream Urine Culture - Final NO GROWTH 2 DAYS Impressions: Chest X-Ray 03/14/18 19:00 IMPRESSION: Chronic lung changes. No acute findings. Assessment & Plan - Diagnosis (1) Neutropenic fever Is this a current diagnosis for this admission?: Yes Plan: cont current regimen, no changes today (2) Sepsis Qualifiers: Sepsis type: Streptococcus, unspecified Qualified Code(s): A40.9 - Streptococcal sepsis, unspecified; A40 - Streptococcal sepsis Is this a current diagnosis for this admission?: Yes Plan: Cont atbx, no change until we have species and sensitivities (3) AML (acute myeloblastic leukemia) Qualifiers: Leukemia Active/Remission status: without remission Qualified Code(s): C92.00 - Acute myeloblastic leukemia, not having achieved remission Is this a current diagnosis for this admission?: Yes Plan: Recovering, slowly, cont current monitoring (4) Thrombocytopenia Is this a current diagnosis for this admission?: Yes Plan: Cont plt tx as needed (5) Anemia associated with chemotherapy Is this a current diagnosis for this admission?: Yes Plan: 2 units today - Time Time Spent with patient: 35 or more minutes
[2018-03-18] MEDS: NICOTINE 21 MG/24 HR PATCH.TD24 TD SCH (11:02)
--- NOTE | 2018-03-18 16:21 | PDOC PROGRESS REPORT ---
Subjective Progress Note for:: 03/18/18 Subjective:: He is better and his HB/HCT had decreased to 6.7/17.3 and WBC increased to 0.5 while platelets remain same at 34.His Blood culture showed Streptococcal pnumoniae and sensitivity noted. He was transfused with 2 units of PRBC and platelets as recommended. We will continue him with double anti-pseudomonal coverage with vancomycin and Cefepime due to being admitted for febrile neutropenia. Reason For Visit: FEBRILE NEUTROPENIA Physical Exam Vital Signs: Temp Pulse Resp BP Pulse Ox 97.5 F 60 16 85/48 L 99 03/18/18 16:06 03/18/18 16:06 03/18/18 16:06 03/18/18 16:06 03/18/18 16:06 Intake & Output 03/17/18 03/18/18 03/19/18 06:59 06:59 06:59 Intake Total 1542 3730 850 Output Total 5 Balance 1537 3730 850 Weight 68.5 kg 69.8 kg General appearance: PRESENT: no acute distress, cooperative, well-developed, well-nourished Head exam: PRESENT: atraumatic, normocephalic Eye exam: PRESENT: EOMI, PERRLA Ear exam: PRESENT: TM's normal bilaterally Mouth exam: PRESENT: neck supple, tongue midline Respiratory exam: PRESENT: clear to auscultation henri, symmetrical Cardiovascular exam: PRESENT: +S1, +S2 Pulses: PRESENT: +2 pedal pulses bilateral GI/Abdominal exam: PRESENT: normal bowel sounds, soft Rectal exam: PRESENT: deferred Extremities exam: PRESENT: full ROM Musculoskeletal exam: PRESENT: full ROM Neurological exam: PRESENT: alert, awake, oriented to person, oriented to place , oriented to time Psychiatric exam: PRESENT: normal mood Results Laboratory Results: 03/18/18 04:12 03/18/18 04:12 03/15/18 03/18/18 03/18/18 09:15 04:12 04:12 WBC 0.5 L* RBC 1.91 L Hgb 6.7 L Hct 17.3 L MCV 91 MCH 35.1 H MCHC 38.7 H RDW 12.6 Plt Count 34 L Seg Neutrophils % 52.4 Lymphocytes % 16.9 Monocytes % 30.7 H Eosinophils % 0.0 Basophils % 0.0 Absolute Neutrophils 0.3 L Absolute Lymphocytes 0.1 L Absolute Monocytes 0.2 Absolute Eosinophils 0.0 Absolute Basophils 0.0 Sodium 141.6 Potassium 4.3 Chloride 109 H Carbon Dioxide 23 Anion Gap 10 BUN 26 H Creatinine 0.69 Est GFR ( Amer) > 60 Est GFR (Non-Af Amer) > 60 Glucose 139 H Calcium 8.4 Total Bilirubin 0.8 AST 25 ALT 31 Alkaline Phosphatase 40 Total Protein 5.3 L Albumin 2.8 L Blood Type O NEGATIVE Antibody Screen Not Reportable 03/18/18 05:39 WBC RBC Hgb Hct MCV MCH MCHC RDW Plt Count Seg Neutrophils % Lymphocytes % Monocytes % Eosinophils % Basophils % Absolute Neutrophils Absolute Lymphocytes Absolute Monocytes Absolute Eosinophils Absolute Basophils Sodium Potassium Chloride Carbon Dioxide Anion Gap BUN Creatinine Est GFR ( Amer) Est GFR (Non-Af Amer) Glucose Calcium Total Bilirubin AST ALT Alkaline Phosphatase Total Protein Albumin Blood Type O NEGATIVE Antibody Screen NEGATIVE 03/14/18 21:30 Blood Blood Culture - Final Streptococcus Pneumoniae 03/14/18 23:04 Blood Blood Culture - Final Streptococcus Pneumoniae Impressions: Chest X-Ray 03/14/18 19:00 IMPRESSION: Chronic lung changes. No acute findings. Assessment & Plan - Diagnosis (1) Febrile neutropenia Is this a current diagnosis for this admission?: Yes Plan: Ct with Cefepime 2 G Q8H IV; Vancomycin IV as per [facility] protocol; Tylenol 650 mg q6h prn po; F/U blood cultures. F/u hematology/oncology. (2) Pancytopenia Is this a current diagnosis for this admission?: Yes Plan: He was transfused with 2 units of PRBC on 03/18/2018 and Platelets as indicated. F/u hematology/oncology and daily CBC. (3) Thrombocytopenia Is this a current diagnosis for this admission?: Yes Plan: Ct with Platelets transfusion daily as ordered by ceramic engineer/oncologist; monitor CBC daily. (4) AML (acute myeloblastic leukemia) Qualifiers: Leukemia Active/Remission status: without remission Qualified Code(s): C92.00 - Acute myeloblastic leukemia, not having achieved remission Is this a current diagnosis for this admission?: Yes Plan: F/u hematology/oncology for mgt. (5) DVT prophylaxis Is this a current diagnosis for this admission?: Yes Plan: Hold Lovenox and SCD for now due to risk of bleeding from thrombocytopenia. (6) Smoker Is this a current diagnosis for this admission?: Yes Plan: Ct with Nicotine patch 21 mg daily.
[2018-03-18] MEDS: ZOLPIDEM TARTRATE 5 MG TABLET PO SCH (21:28)
[2018-03-18 21:55] LABS: HEMATOCRIT 23.5 % (37.9-51.0); HEMOGLOBIN 8.7 g/dL (13.5-17.0); MEAN CORPUSCULAR HEMOGLOBIN 33.1 pg (27.0-33.4); MEAN CORPUSCULAR VOLUME 89 fl (80-97); RED BLOOD COUNT 2.64 10^6/uL (4.35-5.55); RED CELL DISTRIBUTION WIDTH 14.7 % (11.5-14.0)
[2018-03-18 21:56] LABS: MEAN CORPUSCULAR HGB CONC 37.2 g/dL (32.0-36.0)
[2018-03-18 22:18] LABS: PLATELET COUNT 34 10^3/uL (150-450)
[2018-03-18 22:21] LABS: ABSOLUTE LYMPHOCYTES# (MANUAL) 0.3 10^3/uL (0.5-4.7); ABSOLUTE MONOCYTES # (MANUAL) 0.2 10^3/uL (0.1-1.4); ABSOLUTE NEUTROPHILS# (MANUAL) 0.7 10^3/uL (1.7-8.2); BAND NEUTROPHILS % (MANUAL) 2 % (3-5); BASOPHILS % (MANUAL) 0 % (0-2); EOSINOPHILS % (MANUAL) 0 % (0-6); LYMPHOCYTES % (MANUAL) 24 % (13-45); MONOCYTES % (MANUAL) 18 % (3-13); SEGMENTED NEUTROPHILS % (MAN) 54 % (42-78); TOTAL CELLS COUNTED 50
[2018-03-18 22:22] LABS: ANISOCYTOSIS SLIGHT; PLATELET COMMENT DECREASED
[2018-03-18 22:23] LABS: OVALOCYTES SLIGHT; POIKILOCYTOSIS SLIGHT; TEAR DROP CELLS SLIGHT
[2018-03-18 22:27] LABS: WHITE BLOOD COUNT 1.2 10^3/uL (4.0-10.5)
[2018-03-19] MEDS: CEFEPIME 2 GM/D5W RTU 2 GM/50 ML RTUPB IV SCH (05:10)
[2018-03-19] MEDS: VANCOMYCIN HCL 1,250 MG in DEXTROSE 5%-WATER 250 ML IV SCH (05:49)
[2018-03-19 06:10] LABS: HEMATOCRIT 23.4 % (37.9-51.0); HEMOGLOBIN 8.7 g/dL (13.5-17.0); MEAN CORPUSCULAR HEMOGLOBIN 33.3 pg (27.0-33.4); MEAN CORPUSCULAR VOLUME 89 fl (80-97); RED BLOOD COUNT 2.62 10^6/uL (4.35-5.55); RED CELL DISTRIBUTION WIDTH 14.6 % (11.5-14.0); WHITE BLOOD COUNT 1.8 10^3/uL (4.0-10.5)
[2018-03-19 06:33] LABS: VANCOMYCIN,TROUGH 20.3 ug/mL (5.0-20.0)
[2018-03-19 06:36] LABS: ALANINE AMINOTRANSFERASE 21 U/L (21-72); ALBUMIN 2.7 g/dL (3.5-5.0); ALKALINE PHOSPHATASE 42 U/L (38-126); ANION GAP 10 (5-19); ASPARTATE AMINO TRANSFERASE 19 U/L (17-59); BILIRUBIN,DIRECT 0.2 mg/dL (0.0-0.4); BILIRUBIN,TOTAL 0.8 mg/dL (0.2-1.3); BLOOD UREA NITROGEN 23 mg/dL (7-20); CALCIUM 8.5 mg/dL (8.4-10.2); CARBON DIOXIDE 26 mmol/L (22-30); CHLORIDE 108 mmol/L (98-107); GLUCOSE 132 mg/dL (75-110); POTASSIUM 3.9 mmol/L (3.6-5.0); SODIUM 143.5 mmol/L (137-145); TOTAL PROTEIN 5.1 g/dL (6.3-8.2)
[2018-03-19 07:32] LABS: MEAN CORPUSCULAR HGB CONC 37.3 g/dL (32.0-36.0)
[2018-03-19 07:35] LABS: ABSOLUTE LYMPHOCYTES# (MANUAL) 0.6 10^3/uL (0.5-4.7); ABSOLUTE MONOCYTES # (MANUAL) 0.4 10^3/uL (0.1-1.4); ABSOLUTE NEUTROPHILS# (MANUAL) 0.8 10^3/uL (1.7-8.2); ANISOCYTOSIS SLIGHT; BAND NEUTROPHILS % (MANUAL) 4 % (3-5); BASOPHILS % (MANUAL) 0 % (0-2); EOSINOPHILS % (MANUAL) 0 % (0-6); LYMPHOCYTES % (MANUAL) 32 % (13-45); MONOCYTES % (MANUAL) 24 % (3-13); PLATELET COMMENT DECREASED; POIKILOCYTOSIS 1+; ROULEAUX 1+; SEGMENTED NEUTROPHILS % (MAN) 40 % (42-78); TOTAL CELLS COUNTED 50; TOXIC VACUOLATION PRESENT
[2018-03-19 07:43] LABS: PLATELET COUNT 29 10^3/uL (150-450)
[2018-03-19] MEDS: NICOTINE 21 MG/24 HR PATCH.TD24 TD SCH (09:19)
[2018-03-19] MEDS: NORMAL SALINE 1000 ML 1,000 ML IV PRN ×3 (09:20→22:13)
--- NOTE | 2018-03-19 11:19 | PDOC PROGRESS REPORT ---
Subjective Progress Note for:: 03/19/18 Subjective:: Cultures, patient has positive strep pneumo, reviewed culture sensitivities, discussed with pharmacy as well as hospitalist team. Also placed ID consult for a second opinion as well. Plan for transition from vancomycin and cefepime to ceftriaxone. Repeated blood cultures today, if negative for 72 hours plan for PICC line placement and discharge home with daily ceftriaxone most likely. Pharmacy had suggested azithromycin, unsure of if that is appropriate coverage for blood pathogen. But I will get ID opinion on that Wednesday. Hospitalist team and suggested echocardiogram, Agree with this approach to ensure no evidence of endocarditis, they will place order for this. Reason For Visit: FEBRILE NEUTROPENIA Physical Exam Vital Signs: Temp Pulse Resp BP Pulse Ox 98.4 F 66 16 102/58 L 100 03/19/18 07:39 03/19/18 07:39 03/19/18 07:39 03/19/18 07:39 03/19/18 07:39 Intake & Output 03/18/18 03/19/18 03/20/18 06:59 06:59 05:59 Intake Total 3730 4195 250 Balance 3730 4195 250 Weight 69.8 kg 71.1 kg General appearance: PRESENT: no acute distress, well-developed, well-nourished Head exam: PRESENT: atraumatic, normocephalic Eye exam: PRESENT: conjunctiva pink, EOMI, PERRLA. ABSENT: scleral icterus Ear exam: PRESENT: normal external ear exam Mouth exam: PRESENT: moist, tongue midline Neck exam: ABSENT: carotid bruit, JVD, lymphadenopathy, thyromegaly Respiratory exam: PRESENT: clear to auscultation henri. ABSENT: rales, rhonchi, wheezes Cardiovascular exam: PRESENT: RRR. ABSENT: diastolic murmur, rubs, systolic murmur Pulses: PRESENT: normal dorsalis pedis pul Vascular exam: PRESENT: normal capillary refill GI/Abdominal exam: PRESENT: normal bowel sounds, soft. ABSENT: distended, guarding, mass, organolmegaly, rebound, tenderness Rectal exam: PRESENT: deferred Extremities exam: PRESENT: full ROM. ABSENT: calf tenderness, clubbing, pedal edema Neurological exam: PRESENT: alert, awake, oriented to person, oriented to place , oriented to time, oriented to situation, CN II-XII grossly intact. ABSENT: motor sensory deficit Psychiatric exam: PRESENT: appropriate affect, normal mood. ABSENT: homicidal ideation, suicidal ideation Skin exam: PRESENT: dry, intact, warm. ABSENT: cyanosis, rash Results Laboratory Results: 03/19/18 05:46 03/19/18 05:46 03/18/18 03/18/18 03/19/18 05:39 21:17 05:46 WBC 1.2 L* 1.8 L RBC 2.64 L 2.62 L Hgb 8.7 L 8.7 L Hct 23.5 L 23.4 L MCV 89 89 MCH 33.1 33.3 MCHC 37.2 H 37.3 H RDW 14.7 H 14.6 H Plt Count 34 L 29 L* Seg Neutrophils % Not Reportable Not Reportable Lymphocytes % Not Reportable Not Reportable Monocytes % Not Reportable Not Reportable Eosinophils % Not Reportable Not Reportable Basophils % Not Reportable Not Reportable Absolute Neutrophils Not Reportable Not Reportable Absolute Lymphocytes Not Reportable Not Reportable Absolute Monocytes Not Reportable Not Reportable Absolute Eosinophils Not Reportable Not Reportable Absolute Basophils Not Reportable Not Reportable Sodium Potassium Chloride Carbon Dioxide Anion Gap BUN Creatinine Est GFR ( Amer) Est GFR (Non-Af Amer) Glucose Calcium Total Bilirubin AST ALT Alkaline Phosphatase Total Protein Albumin Blood Type O NEGATIVE Antibody Screen NEGATIVE 03/19/18 05:46 WBC RBC Hgb Hct MCV MCH MCHC RDW Plt Count Seg Neutrophils % Lymphocytes % Monocytes % Eosinophils % Basophils % Absolute Neutrophils Absolute Lymphocytes Absolute Monocytes Absolute Eosinophils Absolute Basophils Sodium 143.5 Potassium 3.9 Chloride 108 H Carbon Dioxide 26 Anion Gap 10 BUN 23 H Creatinine 0.55 Est GFR ( Amer) > 60 Est GFR (Non-Af Amer) > 60 Glucose 132 H Calcium 8.5 Total Bilirubin 0.8 AST 19 ALT 21 Alkaline Phosphatase 42 Total Protein 5.1 L Albumin 2.7 L Blood Type Antibody Screen 03/16/18 13:38 Catheter Tip - [place] Catheter Catheter Tip Culture - Final NO GROWTH 3 DAYS 03/14/18 21:30 Blood Blood Culture - Final Streptococcus Pneumoniae 03/14/18 23:04 Blood Blood Culture - Final Streptococcus Pneumoniae Impressions: Chest X-Ray 03/14/18 19:00 IMPRESSION: Chronic lung changes. No acute findings. Assessment & Plan - Diagnosis (1) Neutropenic fever Is this a current diagnosis for this admission?: Yes Plan: Improved, hopefully will have ANC greater than 1000 in the next 48 hours. (2) Sepsis Qualifiers: Sepsis type: Streptococcus, unspecified Qualified Code(s): A40.9 - Streptococcal sepsis, unspecified; A40 - Streptococcal sepsis Is this a current diagnosis for this admission?: Yes Plan: Transitioning antibiotics as above, improving. (3) AML (acute myeloblastic leukemia) Qualifiers: Leukemia Active/Remission status: without remission Qualified Code(s): C92.00 - Acute myeloblastic leukemia, not having achieved remission Is this a current diagnosis for this admission?: Yes Plan: Counts are recovering, continue to monitor closely. (4) Thrombocytopenia Is this a current diagnosis for this admission?: Yes Plan: Platelets are stabilizing, stop daily transfusions of platelets. (5) Anemia associated with chemotherapy Is this a current diagnosis for this admission?: Yes Plan: Hemoglobin stable, transfuse if gets under 7. - Time Time Spent with patient: 35 or more minutes - Inpatient Certification Based on my medical assessment, after consideration of the patient's comorbidities, presenting symptoms, or acuity I expect that the services needed warrant INPATIENT care.: Yes I certify that my determination is in accordance with my understanding of Medicare's requirements for reasonable and necessary INPATIENT services [42 CFR 412.3e].: Yes Medical Necessity: Need for IV Antibiotics
[2018-03-19] MEDS ORDERED: FLUCONAZOLE 400 MG PO SCH (15:15)
[2018-03-19] MEDS: FLUCONAZOLE 100 MG TABLET PO SCH (15:53)
[2018-03-19] MEDS: VALACYCLOVIR HCL 500 MG TABLET PO SCH (15:53)
[2018-03-19] MEDS: CEFTRIAXONE SODIUM 1,000 MG in DEXTROSE 5%-WATER 50 ML IV SCH (17:34)
--- NOTE | 2018-03-19 18:51 | PROGRESS NOTE E ---
Progress Note NAME: GERDA NICK : 1955 AGE: 63Y DATE: 03/19/2018 ROOM: 323 SUBJECTIVE: The patient is currently sitting on the side of the bed. He states he feels okay today. He denies any nausea, vomiting, diarrhea. No shortness of breath, dizziness, chest pain. No fevers or chills. The patient has been afebrile. Blood pressure has been in a good range. The patient does not voice any other concerns at this time. REVIEW OF SYSTEMS: The rest of the review of systems is negative. MEDICATIONS: Medications have been reviewed. OBJECTIVE: GENERAL: The patient is a well-developed, reasonably nourished 63-year-old male who is awake, alert, and oriented to person, place, time, and situation. He is verbal, conversational, does not appear to be in any acute distress. VITAL SIGNS: As follows: Temperature is 98.0, pulse 66, respirations 16, blood pressure is 108/58, oxygen saturation is 99% on room air. SKIN: Warm and dry. No rash, not diaphoretic. HEENT: Pupils equal, round, and reactive to light and accommodation. Conjunctivae pink. There is no evidence of JVP. CARDIOVASCULAR: Heart is regular. There is no murmur or rub. CHEST: Clear, symmetrical, unlabored. ABDOMEN: Soft, nontender, nondistended. BACK: No CVA tenderness or sacral edema. EXTREMITIES: No clubbing, cyanosis, edema. PSYCHIATRIC: Appropriate affect. Pleasant mood. DIAGNOSTICS: Lab values are as follows. Hematology obtained on 03/19/2018: WBCs are 1.8, hemoglobin 7.7, hematocrit is 23.4, platelet count is 29,000. Chemistry obtained on 03/19/2018: Sodium is 143, potassium is 3.9, chloride is 108, carbon dioxide 26, BUN 23, creatinine 0.45, glucose 132, calcium is 8.5, bilirubin 0.8, AST 19, ALT is 21, alk phos 42, total protein 5.1, albumin 2.7. IMPRESSION AND PLAN: 1. STREP PNEUMO BACTEREMIA. This is concerning given the patient did have an indwelling Moctezuma, but this has been removed. Repeat blood cultures at this time. It appears this is sensitive to ceftriaxone; therefore, will proceed with this. Additionally, will obtain echocardiogram. Patient may require SHARON. Will consult Infectious Disease as well and will defer PICC line until second set of cultures has returned. 2. AML. Management is per Hematology/Oncology. 3. PANCYTOPENIA. The patient has been transfused platelets and packed red blood cells. Again, management as per Hematology/Oncology. 4. NEUTROPENIC SEPSIS MOST LIKELY SECONDARY TO #1. The patient appears much improved. Continue antibiotic coverage. 5. DVT PROPHYLAXIS. Will continue nonpharmacological measures and Lovenox is on hold at this point. 6. TOBACCO DEPENDENCY. The patient has been counseled, p.r.n. nicotine patch. DISPOSITION: THE PATIENT IS A FULL CODE. Pending the patient's symptomatology and diagnostic findings, will re-evaluate in the a.m. Time spent on this followup, including assessment/plan, physical examination, patient education, review of records, and specialty collaboration, is 25 minutes. DICTATING PHYSICIAN: MO HERNANDEZ NP [id number] PHY#: [id number] ID: [id number] JOB#: [id number] ACCT: [id number] cc: >
[2018-03-19] MEDS: ZOLPIDEM TARTRATE 5 MG TABLET PO SCH (22:13)
[2018-03-20 04:49] LABS: HEMATOCRIT 24.7 % (37.9-51.0); HEMOGLOBIN 9.1 g/dL (13.5-17.0); MEAN CORPUSCULAR HEMOGLOBIN 33.1 pg (27.0-33.4); MEAN CORPUSCULAR HGB CONC 36.9 g/dL (32.0-36.0); MEAN CORPUSCULAR VOLUME 90 fl (80-97); RED BLOOD COUNT 2.76 10^6/uL (4.35-5.55); RED CELL DISTRIBUTION WIDTH 14.4 % (11.5-14.0); WHITE BLOOD COUNT 3.3 10^3/uL (4.0-10.5)
[2018-03-20 04:58] LABS: ALANINE AMINOTRANSFERASE 34 U/L (21-72); ALBUMIN 2.6 g/dL (3.5-5.0); ALKALINE PHOSPHATASE 44 U/L (38-126); ANION GAP 7 (5-19); ASPARTATE AMINO TRANSFERASE 19 U/L (17-59); BILIRUBIN,DIRECT 0.2 mg/dL (0.0-0.4); BILIRUBIN,TOTAL 0.8 mg/dL (0.2-1.3); BLOOD UREA NITROGEN 21 mg/dL (7-20); CALCIUM 8.1 mg/dL (8.4-10.2); CARBON DIOXIDE 29 mmol/L (22-30); CHLORIDE 106 mmol/L (98-107); GLUCOSE 82 mg/dL (75-110); POTASSIUM 3.3 mmol/L (3.6-5.0); TOTAL PROTEIN 4.8 g/dL (6.3-8.2)
[2018-03-20] MEDS: NORMAL SALINE 1000 ML 1,000 ML IV PRN (05:21)
[2018-03-20 05:40] LABS: PLATELET COUNT 18 10^3/uL (150-450)
[2018-03-20 05:41] LABS: BAND NEUTROPHILS % (MANUAL) 6 % (3-5); LYMPHOCYTES % (MANUAL) 16 % (13-45); SEGMENTED NEUTROPHILS % (MAN) 46 % (42-78); TOTAL CELLS COUNTED 100
[2018-03-20 05:42] LABS: ABSOLUTE LYMPHOCYTES# (MANUAL) 0.7 10^3/uL (0.5-4.7); ABSOLUTE MONOCYTES # (MANUAL) 0.9 10^3/uL (0.1-1.4); ABSOLUTE NEUTROPHILS# (MANUAL) 1.7 10^3/uL (1.7-8.2); ANISOCYTOSIS 1+; BASOPHILS % (MANUAL) 0 % (0-2); EOSINOPHILS % (MANUAL) 0 % (0-6); MONOCYTES % (MANUAL) 28 % (3-13); OVALOCYTES SLIGHT; TOXIC GRANULATION 2+; TOXIC VACUOLATION PRESENT
[2018-03-20 05:43] LABS: HYPOCHROMASIA 2+; PLATELET COMMENT DECREASED
[2018-03-20] MEDS: FLUCONAZOLE 100 MG TABLET PO SCH (09:15)
[2018-03-20] MEDS: NICOTINE 21 MG/24 HR PATCH.TD24 TD SCH (09:15)
[2018-03-20] MEDS: VALACYCLOVIR HCL 500 MG TABLET PO SCH (09:15)
--- NOTE | 2018-03-20 10:49 | PDOC PROGRESS REPORT ---
Subjective Progress Note for:: 03/20/18 Subjective:: Doing better today, taking PO well now, will order PICC placement for wednesday if cx neg, probably will need plt transfusion by wed or . +monocytes inc noted on CBC, asked for path to review to ensure this is just marrow recovery and not blasts but per tech view didn't look like blasts. Reason For Visit: FEBRILE NEUTROPENIA Physical Exam Vital Signs: Temp Pulse Resp BP Pulse Ox 98.9 F 68 16 127/64 H 97 03/20/18 07:47 03/20/18 07:47 03/20/18 07:47 03/20/18 07:47 03/20/18 07:47 Intake & Output 03/19/18 03/20/18 03/21/18 07:59 06:59 06:59 Intake Total Balance Weight General appearance: PRESENT: no acute distress, well-developed, well-nourished Head exam: PRESENT: atraumatic, normocephalic Eye exam: PRESENT: conjunctiva pink, EOMI, PERRLA. ABSENT: scleral icterus Ear exam: PRESENT: normal external ear exam Mouth exam: PRESENT: moist, tongue midline Neck exam: ABSENT: carotid bruit, JVD, lymphadenopathy, thyromegaly Respiratory exam: PRESENT: clear to auscultation henri. ABSENT: rales, rhonchi, wheezes Cardiovascular exam: PRESENT: RRR. ABSENT: diastolic murmur, rubs, systolic murmur Pulses: PRESENT: normal dorsalis pedis pul Vascular exam: PRESENT: normal capillary refill GI/Abdominal exam: PRESENT: normal bowel sounds, soft. ABSENT: distended, guarding, mass, organolmegaly, rebound, tenderness Rectal exam: PRESENT: deferred Extremities exam: PRESENT: full ROM. ABSENT: calf tenderness, clubbing, pedal edema Neurological exam: PRESENT: alert, awake, oriented to person, oriented to place , oriented to time, oriented to situation, CN II-XII grossly intact. ABSENT: motor sensory deficit Psychiatric exam: PRESENT: appropriate affect, normal mood. ABSENT: homicidal ideation, suicidal ideation Skin exam: PRESENT: dry, intact, warm. ABSENT: cyanosis, rash Results Laboratory Results: 03/20/18 04:17 03/20/18 04:17 03/20/18 03/20/18 04:17 04:17 WBC 3.3 L RBC 2.76 L Hgb 9.1 L Hct 24.7 L MCV 90 MCH 33.1 MCHC 36.9 H RDW 14.4 H Plt Count 18 L* Seg Neutrophils % Not Reportable Lymphocytes % Not Reportable Monocytes % Not Reportable Eosinophils % Not Reportable Basophils % Not Reportable Absolute Neutrophils Not Reportable Absolute Lymphocytes Not Reportable Absolute Monocytes Not Reportable Absolute Eosinophils Not Reportable Absolute Basophils Not Reportable Sodium 142.0 Potassium 3.3 L Chloride 106 Carbon Dioxide 29 Anion Gap 7 BUN 21 H Creatinine 0.61 Est GFR ( Amer) > 60 Est GFR (Non-Af Amer) > 60 Glucose 82 Calcium 8.1 L Total Bilirubin 0.8 AST 19 ALT 34 Alkaline Phosphatase 44 Total Protein 4.8 L Albumin 2.6 L 03/16/18 13:38 Catheter Tip - [place] Catheter Catheter Tip Culture - Final NO GROWTH 3 DAYS Impressions: Chest X-Ray 03/14/18 19:00 IMPRESSION: Chronic lung changes. No acute findings. Assessment & Plan - Diagnosis (1) Neutropenic fever Is this a current diagnosis for this admission?: Yes Plan: Improved, atbx tailored based on pathogen (2) Sepsis Qualifiers: Sepsis type: Pneumococcus Qualified Code(s): A40.3 - Sepsis due to Streptococcus pneumoniae Is this a current diagnosis for this admission?: Yes Plan: Aaronepyazminn con't ID consult pending for wednesday to ensure they agree, will need total 14 days from neg cx (3) AML (acute myeloblastic leukemia) Qualifiers: Leukemia Active/Remission status: without remission Qualified Code(s): C92.00 - Acute myeloblastic leukemia, not having achieved remission Is this a current diagnosis for this admission?: Yes Plan: Cont monitoring, recovering from consoldiatioin chemo #2 (4) Thrombocytopenia Is this a current diagnosis for this admission?: Yes Plan: Plt ct down to 18, recheck in am and may need transfusion (5) Anemia associated with chemotherapy Is this a current diagnosis for this admission?: Yes Plan: Hb stable, unlikely to need more PRBC on this admit - Time Time Spent with patient: 35 or more minutes - Inpatient Certification Based on my medical assessment, after consideration of the patient's comorbidities, presenting symptoms, or acuity I expect that the services needed warrant INPATIENT care.: Yes I certify that my determination is in accordance with my understanding of Medicare's requirements for reasonable and necessary INPATIENT services [42 CFR 412.3e].: Yes Medical Necessity: Need for IV Antibiotics, Need for Surgery
[2018-03-20] MEDS ORDERED: POTASSIUM CHLORIDE 10 MEQ CAPSULE.ER PO ONE (11:43)
--- NOTE | 2018-03-20 17:06 | PROGRESS NOTE E ---
Progress Note NAME: GERDA NICK : 1955 AGE: 63Y DATE: 03/20/2018 ROOM: 323 SUBJECTIVE: The patient is currently sitting up on the side of the bed. He states he feels okay today. The patient denies any nausea, vomiting, diarrhea. No shortness of breath, dizziness, chest pain. No fevers or chills. The patient has been afebrile, blood pressure has been in a good range, and the patient does not voice any other concerns at this time. BRIEF HISTORY: Over the weekend the patient was followed by Hematology. The patient's blood cultures became positive, which appeared to be a Streptococcus pneumonia. The patient has had his Moctezuma removed. Repeat cultures were obtained which thus far have revealed no growth. The patient was placed on Rocephin to cover this. The patient was found to be mildly hyperkalemic; this was repleted. The patient's platelets are on a downward trend; this is being managed by Hematology. The patient does not voice any specific concerns at this time. REVIEW OF SYSTEMS: The rest of the review of systems is negative. MEDICATIONS: Medications have been reviewed. OBJECTIVE: GENERAL: The patient is a 63-year-old male who is awake, alert, and oriented to person, place, time, and situation. He is verbal, conversational, does not appear to be in any acute distress. VITAL SIGNS: As follows: Temperature is 98.9, pulse 68, respirations 16, blood pressure is 127/64, oxygen saturation is 97% on room air. SKIN: Warm and dry. No rash, not diaphoretic. HEENT: Pupils equal, round, and reactive to light and accommodation. Conjunctivae pink. No evidence of JVP. CARDIOVASCULAR: Heart is regular. There is no murmur or rub. CHEST: Clear, symmetrical, unlabored. ABDOMEN: Soft, nontender, nondistended. BACK: No CVA tenderness or sacral edema. EXTREMITIES: No clubbing, cyanosis, edema. PSYCHIATRIC: Appropriate affect. Pleasant mood. DIAGNOSTICS: Lab values are as follows. Hematology obtained on 03/20/2018: WBCs are 3.3, hemoglobin is 9.9, hematocrit is 24.7, platelet count is 18,000, bands 6. Chemistry obtained on 03/20/2018: Sodium is 142, potassium 3.3, chloride 106, carbon dioxide is 29, BUN 21, creatinine 0.61, glucose 82, calcium is 8.1, bilirubin is 0.8, AST 19, ALT is 34, alk phos 44. Total protein is 4.8, albumin is 2.6. Blood cultures obtained on 03/19/2018 reveal no growth. IMPRESSION AND PLAN: 1. STREP PNEUMO BACTEREMIA. The patient's indwelling [place]ct[place]uma has been removed. Repeat blood cultures thankfully were negative. This appears to be sensitive to ceftriaxone. Have went ahead and ordered a transthoracic echocardiogram. The patient may require a SHARON. Infectious Disease consultation is pending. The patient can proceed with PICC line tomorrow or Wednesday. 2. AML. Management as per Hematology/Oncology. 3. PANCYTOPENIA. The patient was transfused platelets and packed cells. Again, management as per Oncology. 4. NEUTROPENIC SEPSIS, MOST LIKELY SECONDARY TO #1. The patient does have some mild bandemia at this point in time. Will watch this closely. Repeat in the morning. Continue Rocephin. 5. TOBACCO DEPENDENCY. The patient has been counseled, p.r.n. nicotine patch. 6. DVT PROPHYLAXIS. Will continue nonpharmacological measures as the patient's Lovenox is on hold. DISPOSITION: THE PATIENT IS A FULL CODE. Pending the patient's symptomatology and diagnostic findings, will re-evaluate in the a.m. Time spent on this followup, including assessment/plan, physical examination, patient education, review of records, family meeting, and specialty collaboration is 20 minutes. DICTATING PHYSICIAN: MO HERNANDEZ NP [id number] PHY#: [id number] ID: [id number] JOB#: [id number] ACCT: [id number] cc: >
[2018-03-20] MEDS: CEFTRIAXONE SODIUM 1,000 MG in DEXTROSE 5%-WATER 50 ML IV SCH (17:18)
[2018-03-20] MEDS: ZOLPIDEM TARTRATE 5 MG TABLET PO SCH (22:22)
[2018-03-21 05:12] LABS: HEMATOCRIT 25.5 % (37.9-51.0); HEMOGLOBIN 9.6 g/dL (13.5-17.0); MEAN CORPUSCULAR HEMOGLOBIN 33.5 pg (27.0-33.4); MEAN CORPUSCULAR VOLUME 89 fl (80-97); RED BLOOD COUNT 2.86 10^6/uL (4.35-5.55); RED CELL DISTRIBUTION WIDTH 14.5 % (11.5-14.0); WHITE BLOOD COUNT 5.9 10^3/uL (4.0-10.5)
[2018-03-21 05:21] LABS: ALANINE AMINOTRANSFERASE 29 U/L (21-72); ALKALINE PHOSPHATASE 58 U/L (38-126); ANION GAP 10 (5-19); ASPARTATE AMINO TRANSFERASE 19 U/L (17-59); BILIRUBIN,DIRECT 0.1 mg/dL (0.0-0.4); BILIRUBIN,TOTAL 0.6 mg/dL (0.2-1.3); BLOOD UREA NITROGEN 16 mg/dL (7-20); CALCIUM 8.8 mg/dL (8.4-10.2); CARBON DIOXIDE 29 mmol/L (22-30); CHLORIDE 104 mmol/L (98-107); GLUCOSE 91 mg/dL (75-110); POTASSIUM 3.5 mmol/L (3.6-5.0); SODIUM 143.4 mmol/L (137-145); TOTAL PROTEIN 5.4 g/dL (6.3-8.2)
[2018-03-21 05:39] LABS: MEAN CORPUSCULAR HGB CONC 37.5 g/dL (32.0-36.0)
[2018-03-21 05:48] LABS: ABSOLUTE LYMPHOCYTES# (MANUAL) 0.6 10^3/uL (0.5-4.7); ABSOLUTE MONOCYTES # (MANUAL) 0.9 10^3/uL (0.1-1.4); ABSOLUTE NEUTROPHILS# (MANUAL) 4.4 10^3/uL (1.7-8.2); BAND NEUTROPHILS % (MANUAL) 6 % (3-5); BASOPHILS % (MANUAL) 0 % (0-2); EOSINOPHILS % (MANUAL) 0 % (0-6); LYMPHOCYTES % (MANUAL) 10 % (13-45); MONOCYTES % (MANUAL) 16 % (3-13); SEGMENTED NEUTROPHILS % (MAN) 68 % (42-78); TOTAL CELLS COUNTED 100
[2018-03-21 05:55] LABS: ANISOCYTOSIS SLIGHT; OVALOCYTES SLIGHT; PLATELET COMMENT DECREASED; POIKILOCYTOSIS SLIGHT
[2018-03-21 06:13] LABS: PLATELET COUNT 14 10^3/uL (150-450)
--- NOTE | 2018-03-21 08:04 | PDOC PROGRESS REPORT ---
Subjective Progress Note for:: 03/21/18 Subjective:: Pt doing well, felt a bit lightheaded when walking yesterday but did walk the halls. Plan for PICC line placement tomorrow, plan for transfusion 2 units platelets. Today will have ID consult, pharmacy over weekend noted that oral azithromycin maybe an options since s. pneumo strain is sensitive but I was unsure whether that would be approp given immunocompromised status and fact that this was a blood pathogen. I had planned on ceftriaxone daily as outpt for total of 14 days from neg culture (03/19/18). Also asked radiology to see what plt ct would be needed for PICC placement. Reason For Visit: FEBRILE NEUTROPENIA Physical Exam Vital Signs: Temp Pulse Resp BP Pulse Ox 98.6 F 72 18 122/68 95 03/21/18 07:41 03/21/18 07:41 03/21/18 07:41 03/21/18 07:41 03/21/18 07:41 Intake & Output 03/20/18 03/21/18 03/22/18 06:59 06:59 06:59 Intake Total 2600 Balance 2600 Weight 68.6 kg General appearance: PRESENT: no acute distress, well-developed, well-nourished Head exam: PRESENT: atraumatic, normocephalic Eye exam: PRESENT: conjunctiva pink, EOMI, PERRLA. ABSENT: scleral icterus Ear exam: PRESENT: normal external ear exam Mouth exam: PRESENT: moist, tongue midline Neck exam: ABSENT: carotid bruit, JVD, lymphadenopathy, thyromegaly Respiratory exam: PRESENT: clear to auscultation henri. ABSENT: rales, rhonchi, wheezes Cardiovascular exam: PRESENT: RRR. ABSENT: diastolic murmur, rubs, systolic murmur Pulses: PRESENT: normal dorsalis pedis pul Vascular exam: PRESENT: normal capillary refill GI/Abdominal exam: PRESENT: normal bowel sounds, soft. ABSENT: distended, guarding, mass, organolmegaly, rebound, tenderness Rectal exam: PRESENT: deferred Extremities exam: PRESENT: full ROM. ABSENT: calf tenderness, clubbing, pedal edema Neurological exam: PRESENT: alert, awake, oriented to person, oriented to place , oriented to time, oriented to situation, CN II-XII grossly intact. ABSENT: motor sensory deficit Psychiatric exam: PRESENT: appropriate affect, normal mood. ABSENT: homicidal ideation, suicidal ideation Skin exam: PRESENT: dry, intact, warm. ABSENT: cyanosis, rash Results Laboratory Results: 03/21/18 04:02 03/21/18 04:02 03/21/18 03/21/18 04:02 04:02 WBC 5.9 RBC 2.86 L Hgb 9.6 L Hct 25.5 L MCV 89 MCH 33.5 H MCHC 37.5 H RDW 14.5 H Plt Count 14 L* Seg Neutrophils % Not Reportable Lymphocytes % Not Reportable Monocytes % Not Reportable Eosinophils % Not Reportable Basophils % Not Reportable Absolute Neutrophils Not Reportable Absolute Lymphocytes Not Reportable Absolute Monocytes Not Reportable Absolute Eosinophils Not Reportable Absolute Basophils Not Reportable Sodium 143.4 Potassium 3.5 L Chloride 104 Carbon Dioxide 29 Anion Gap 10 BUN 16 Creatinine 0.59 Est GFR ( Amer) > 60 Est GFR (Non-Af Amer) > 60 Glucose 91 Calcium 8.8 Total Bilirubin 0.6 AST 19 ALT 29 Alkaline Phosphatase 58 Total Protein 5.4 L Albumin 3.0 L Impressions: Chest X-Ray 03/14/18 19:00 IMPRESSION: Chronic lung changes. No acute findings. Assessment & Plan - Diagnosis (1) Neutropenic fever Is this a current diagnosis for this admission?: Yes Plan: Resolved now, d/c neutropenic precautions, plan as above (2) Sepsis Qualifiers: Sepsis type: Pneumococcus Qualified Code(s): A40.3 - Sepsis due to Streptococcus pneumoniae Is this a current diagnosis for this admission?: Yes Plan: Step pneumo sepsis, now being covered approp w/ ceftriaxone, ID consult as above (3) AML (acute myeloblastic leukemia) Qualifiers: Leukemia Active/Remission status: without remission Qualified Code(s): C92.00 - Acute myeloblastic leukemia, not having achieved remission Is this a current diagnosis for this admission?: Yes Plan: Counts recovering, pathology did look at smear, no blasts noted, all recovery marrow indications thus far. (4) Thrombocytopenia Is this a current diagnosis for this admission?: Yes Plan: Plt ct down to 14, will give 2 units plt in prep for procedure tomorrow. (5) Anemia associated with chemotherapy Is this a current diagnosis for this admission?: Yes Plan: hb improving, should not need more blood products - Time Time Spent with patient: 35 or more minutes - Inpatient Certification Based on my medical assessment, after consideration of the patient's comorbidities, presenting symptoms, or acuity I expect that the services needed warrant INPATIENT care.: Yes I certify that my determination is in accordance with my understanding of Medicare's requirements for reasonable and necessary INPATIENT services [42 CFR 412.3e].: Yes Medical Necessity: Need for IV Antibiotics, Need for Surgery
[2018-03-21] MEDS ORDERED: ACETAMINOPHEN 325 MG TABLET PO PRN (08:36)
[2018-03-21] MEDS ORDERED: DIPHENHYDRAMINE HCL 25 MG CAPSULE PO PRN (08:37)
[2018-03-21] MEDS ORDERED: FAMOTIDINE INJ/PF 20 MG/2 ML SDV IV PRN (08:37)
[2018-03-21] MEDS ORDERED: METHYLPREDNISOLONE INJ 40 MG/1 ML SDV IV PRN (08:38)
[2018-03-21] MEDS: FLUCONAZOLE 100 MG TABLET PO SCH (09:29)
[2018-03-21] MEDS: NICOTINE 21 MG/24 HR PATCH.TD24 TD SCH (09:30)
[2018-03-21] MEDS: VALACYCLOVIR HCL 500 MG TABLET PO SCH (09:30)
[2018-03-21] MEDS: ACETAMINOPHEN 325 MG TABLET PO PRN (10:57)
[2018-03-21 12:47] LABS: PATH REVIEW PATHOLOGIST REVIEWED
--- NOTE | 2018-03-21 16:27 | Progress Note ---
Provider Note Provider Note: discussed w/ ID in [facility], suggested that he would be sensitive to high dose amoxicillin oral at 1 gram orally TID, she suggested continuing therapy x 10 more days post d/c, will d/c picc placement and ensure ECHO read is normal. If cultures negative tomorrow, d/c on oral amoxicillin
--- NOTE | 2018-03-21 16:34 | PDOC PROGRESS REPORT ---
Subjective Progress Note for:: 03/21/18 Subjective:: Pt is doing well and he feels better today and his appetite is improving. His Hb/HCT has improved to 9.6/25.5 and WBC increased to 5.9, though platelets is still 14. He is for PICC line tomorrow. Still awaiting ID consult. Reason For Visit: FEBRILE NEUTROPENIA Physical Exam Vital Signs: Temp Pulse Resp BP Pulse Ox 98.1 F 64 17 133/67 H 99 03/21/18 15:16 03/21/18 15:16 03/21/18 15:16 03/21/18 15:16 03/21/18 15:16 Intake & Output 03/20/18 03/21/18 03/22/18 06:59 06:59 06:59 Intake Total 2600 566 Balance 2600 566 Weight 68.6 kg General appearance: PRESENT: no acute distress, cooperative, well-developed, well-nourished Head exam: PRESENT: atraumatic, normocephalic Eye exam: PRESENT: EOMI, PERRLA Ear exam: PRESENT: normal external ear exam, TM's normal bilaterally Mouth exam: PRESENT: moist, neck supple Neck exam: PRESENT: full ROM Respiratory exam: PRESENT: clear to auscultation henri, symmetrical Cardiovascular exam: PRESENT: +S1, +S2 Pulses: PRESENT: +2 pedal pulses bilateral GI/Abdominal exam: PRESENT: soft Rectal exam: PRESENT: deferred Extremities exam: PRESENT: full ROM Neurological exam: PRESENT: alert, awake, oriented to person, oriented to place , oriented to time Psychiatric exam: PRESENT: normal mood Results Laboratory Results: 03/21/18 04:02 03/21/18 04:02 03/21/18 03/21/18 03/21/18 04:02 04:02 08:49 WBC 5.9 RBC 2.86 L Hgb 9.6 L Hct 25.5 L MCV 89 MCH 33.5 H MCHC 37.5 H RDW 14.5 H Plt Count 14 L* Seg Neutrophils % Not Reportable Lymphocytes % Not Reportable Monocytes % Not Reportable Eosinophils % Not Reportable Basophils % Not Reportable Absolute Neutrophils Not Reportable Absolute Lymphocytes Not Reportable Absolute Monocytes Not Reportable Absolute Eosinophils Not Reportable Absolute Basophils Not Reportable Sodium 143.4 Potassium 3.5 L Chloride 104 Carbon Dioxide 29 Anion Gap 10 BUN 16 Creatinine 0.59 Est GFR ( Amer) > 60 Est GFR (Non-Af Amer) > 60 Glucose 91 Calcium 8.8 Total Bilirubin 0.6 AST 19 ALT 29 Alkaline Phosphatase 58 Total Protein 5.4 L Albumin 3.0 L Blood Type O NEGATIVE Impressions: Chest X-Ray 03/14/18 19:00 IMPRESSION: Chronic lung changes. No acute findings. Assessment & Plan - Diagnosis (1) Febrile neutropenia Is this a current diagnosis for this admission?: Yes Plan: Ct with Rocephin 1G daily IV; Tylenol 650 mg q6h prn po;F/u hematology/ oncology. (2) Pancytopenia Is this a current diagnosis for this admission?: Yes Plan: He was transfused with 2 units of PRBC on 03/18/2018 and Platelets as indicated. F/u hematology/oncology and daily CBC. (3) Thrombocytopenia Is this a current diagnosis for this admission?: Yes Plan: Ct with Platelets transfusion daily as ordered by ceramic restorer/oncologist; monitor CBC daily. (4) AML (acute myeloblastic leukemia) Qualifiers: Leukemia Active/Remission status: without remission Qualified Code(s): C92.00 - Acute myeloblastic leukemia, not having achieved remission Is this a current diagnosis for this admission?: Yes Plan: F/u hematology/oncology for mgt. (5) DVT prophylaxis Is this a current diagnosis for this admission?: Yes Plan: Hold Lovenox and SCD for now due to risk of bleeding from thrombocytopenia. (6) Smoker Is this a current diagnosis for this admission?: Yes Plan: Ct with Nicotine patch 21 mg daily.
--- NOTE | 2018-03-21 17:03 | XCELERA REPORT ---
[address] [address] Transthoracic Echocardiogram Report Name: GERDA NICK Age: 63 yrs Gender: Male : 1955 Patient Status: Inpatient Patient Location: [facility]^A Study Date: 03/20/2018 02:18 PM Height: 68 in Weight: 156 lb BSA: 1.8 m2 Reason For Study: endocarditis Ordering Physician: MO HERNANDEZ Performed By: JAKUB Interpretation Summary The left ventricular ejection fraction is normal. There is normal left ventricular wall thickness. The left ventricle is normal in size. LV diastolic function could not be adequately assessed. Wall motion cannot be accurately commented on, but no definite regional wall motion abnormalities noted. The right ventricular systolic function is normal. The left atrial size is normal. The right atrium is normal. There is a trace amount of mitral regurgitation There is no mitral valve stenosis. There is no aortic valve stenosis No aortic regurgitation is present. There is a trace or physiologic amount of tricuspid regurgitation Tricuspid regurgitation jet envelope not well defined to measure RV systolic pressure accurately. The aortic root is not well visualized but is probably normal size. The inferior vena cava was not well visualized No definite vegetations noted but can not r/o either if clinical suspicion is high, then consider SHARON and multiple blood cultures. MMode/2D Measurements & Calculations RVDd: 3.1 cm LVIDd: 5.1 cm FS: 41.1 % LA dimension: 3.0 cm IVSd: 0.90 cm LVIDs: 3.0 cm EDV(Teich): 121.8 ml LVPWd: 0.76 cm ESV(Teich): 34.5 ml EF(Teich): 71.7 % Doppler Measurements & Calculations MV E max clyde: MV P1/2t max clyde: Ao V2 max: LV V1 max P.8 cm/sec 110.5 cm/sec 155.3 cm/sec 5.4 mmHg MV A max clyde: MV P1/2t: 72.0 msec Ao max P.7 mmHgLV V1 max: 61.7 cm/sec MVA(P1/2t): 3.1 cm2 116.0 cm/sec MV E/A: 1.5 MV dec slope: 449.5 cm/sec2 MV dec time: 0.24 sec PA V2 max: TR max clyde: MV P1/2t-pr_phl: 107.6 cm/sec 205.8 cm/sec 72.0 msec PA max PG: TR max P.9 mmHg 4.6 mmHg Left Ventricle The left ventricle is normal in size. There is normal left ventricular wall thickness. The left ventricular ejection fraction is normal. LV diastolic function could not be adequately assessed. Wall motion cannot be accurately commented on, but no definite regional wall motion abnormalities noted. Right Ventricle The right ventricle is grossly normal size. There is normal right ventricular wall thickness. The right ventricular systolic function is normal. Atria The right atrium is normal. The left atrial size is normal. Interarterial septum not well visualized and not well dopplered. Cannot comment on ASD/PFO presence. Mitral Valve The mitral valve is grossly normal. There is no mitral valve stenosis. There is a trace amount of mitral regurgitation. Aortic Valve The aortic valve is grossly normal. There is no aortic valve stenosis. No aortic regurgitation is present. Tricuspid Valve The tricuspid valve is not well visualized, but is grossly normal. There is no tricuspid stenosis. There is a trace or physiologic amount of tricuspid regurgitation. Tricuspid regurgitation jet envelope not well defined to measure RV systolic pressure accurately. Pulmonic Valve The pulmonic valve is not well visualized. Great Vessels The aortic root is not well visualized but is probably normal size. The inferior vena cava was not well visualized. Effusions There is no pericardial effusion. Incidental Findings No definite vegetations noted but if clinical suspicion is high, then consider SHARON and multiple blood cultures. : MO HERNANDEZ > Karina Alba
[2018-03-21] MEDS: CEFTRIAXONE SODIUM 1,000 MG in DEXTROSE 5%-WATER 50 ML IV SCH (17:55)
[2018-03-21] MEDS: ZOLPIDEM TARTRATE 5 MG TABLET PO SCH (21:15)
[2018-03-22 05:20] LABS: HEMATOCRIT 24.2 % (37.9-51.0); HEMOGLOBIN 9.2 g/dL (13.5-17.0); MEAN CORPUSCULAR HEMOGLOBIN 33.8 pg (27.0-33.4); MEAN CORPUSCULAR VOLUME 89 fl (80-97); RED BLOOD COUNT 2.73 10^6/uL (4.35-5.55); RED CELL DISTRIBUTION WIDTH 13.9 % (11.5-14.0); WHITE BLOOD COUNT 6.7 10^3/uL (4.0-10.5)
[2018-03-22 05:35] LABS: ALANINE AMINOTRANSFERASE 25 U/L (21-72); ALBUMIN 3.5 g/dL (3.5-5.0); ALKALINE PHOSPHATASE 62 U/L (38-126); ANION GAP 13 (5-19); ASPARTATE AMINO TRANSFERASE 17 U/L (17-59); BILIRUBIN,DIRECT 0.1 mg/dL (0.0-0.4); BILIRUBIN,TOTAL 0.5 mg/dL (0.2-1.3); BLOOD UREA NITROGEN 18 mg/dL (7-20); CALCIUM 9.4 mg/dL (8.4-10.2); CARBON DIOXIDE 26 mmol/L (22-30); CHLORIDE 104 mmol/L (98-107); GLUCOSE 131 mg/dL (75-110); POTASSIUM 4.2 mmol/L (3.6-5.0); SODIUM 142.8 mmol/L (137-145); TOTAL PROTEIN 6.1 g/dL (6.3-8.2)
[2018-03-22 06:07] LABS: MEAN CORPUSCULAR HGB CONC 38.2 g/dL (32.0-36.0); PLATELET COUNT 33 10^3/uL (150-450)
[2018-03-22 06:18] LABS: ABSOLUTE LYMPHOCYTES# (MANUAL) 0.5 10^3/uL (0.5-4.7); ABSOLUTE MONOCYTES # (MANUAL) 0.6 10^3/uL (0.1-1.4); ABSOLUTE NEUTROPHILS# (MANUAL) 5.6 10^3/uL (1.7-8.2); BASOPHILS % (MANUAL) 0 % (0-2); EOSINOPHILS % (MANUAL) 0 % (0-6); LYMPHOCYTES % (MANUAL) 8 % (13-45); MONOCYTES % (MANUAL) 9 % (3-13); SEGMENTED NEUTROPHILS % (MAN) 83 % (42-78); TOTAL CELLS COUNTED 100
[2018-03-22 06:23] LABS: HELMET CELLS SLIGHT; OVALOCYTES 2+; POIKILOCYTOSIS 1+; TEAR DROP CELLS 1+
[2018-03-22 06:27] LABS: TOXIC GRANULATION 1+
[2018-03-22 06:30] LABS: PLATELET COMMENT DECREASED
--- NOTE | 2018-03-22 08:13 | Progress Note ---
Provider Note Provider Note: ID Consult Note Asked by Pharmacy to review patient's chart and discussed case briefly via telephone with Dr Rouse on 03/21/18. Pt not seen or examined. Mr Crane is a 63 year old man who has a PMH including AML, HTN, HLD, tobacco use who has been receiving chemotherapy. Ppx included levofloxacin. Pt presented on 03/14/18 to ED at [facility] with malaise, dry cough, fever and chills x 24h per review of ED provider note and H&P. On exam, pt was tachycardic, tachypneic and had fever to 101 F but no evidence of AOM, supple neck, no murmur, lungs CTAB, no remarkable findings on abdomen, joint or skin exam. WBC was 0.1k initially. Pt also thrombocytopenic. Imaging included CXR that showed no acute radiographic finding. BCx on admission grew Streptococcus pneumoniae (penicillin LORNE 0.5) from one bottle of both sets drawn on 03/14. Pt initially was treated with vancomycin and cefepime, then de-escalated to Rocephin.The patient had a Moctezuma , which was removed on 03/16 in light of continued fever despite antibiotic therapy. Last fever was on 03/16. Repeat BCx from 03/19 have shown no growth x 48h. Pt has had neutrophil recovery. ANC > 1000 on 03/20. Most recent total WBC 5.9 on 03/21. TTE on 03/20 did not show any definite vegetations. Pt has been reportedly doing well clinically, without any specific/localizing complaints or exam findings documented, remains afebrile. sepsis due to Streptpcoccus pneumoniae bacteremia - Pt has clinically improved, remains afebrile, no longer neutropenic - Has been on treatment since 03/14-03/15 with vancomycin/cefepime then Rocephin IV; Mar 21 is on day 7 in total - When he is ready for discharge, pt can transition to oral amoxicillin at 1 g every 8 h to complete the remainder of 14 days of therapy Ubaldo Moy MD COUNTS INCLUDE [phone] BEDS AT THE [facility] Infectious Diseases pager [phone]
--- NOTE | 2018-03-22 08:34 | PDOC PROGRESS REPORT ---
Subjective Progress Note for:: 03/22/18 Subjective:: Doing well this am, plan for d/c home today Reason For Visit: FEBRILE NEUTROPENIA Physical Exam Vital Signs: Temp Pulse Resp BP Pulse Ox 98.5 F 62 12 120/65 100 03/22/18 08:09 03/22/18 08:09 03/22/18 08:09 03/22/18 08:09 03/22/18 08:09 Intake & Output 03/21/18 03/22/18 03/23/18 06:59 06:59 06:59 Intake Total 2600 1586 Balance 2600 1586 Weight 68.6 kg 66.4 kg General appearance: PRESENT: no acute distress, well-developed, well-nourished Head exam: PRESENT: atraumatic, normocephalic Eye exam: PRESENT: conjunctiva pink, EOMI, PERRLA. ABSENT: scleral icterus Ear exam: PRESENT: normal external ear exam Mouth exam: PRESENT: moist, tongue midline Neck exam: ABSENT: carotid bruit, JVD, lymphadenopathy, thyromegaly Respiratory exam: PRESENT: clear to auscultation henri. ABSENT: rales, rhonchi, wheezes Cardiovascular exam: PRESENT: RRR. ABSENT: diastolic murmur, rubs, systolic murmur Pulses: PRESENT: normal dorsalis pedis pul Vascular exam: PRESENT: normal capillary refill GI/Abdominal exam: PRESENT: normal bowel sounds, soft. ABSENT: distended, guarding, mass, organolmegaly, rebound, tenderness Rectal exam: PRESENT: deferred Extremities exam: PRESENT: full ROM. ABSENT: calf tenderness, clubbing, pedal edema Neurological exam: PRESENT: alert, awake, oriented to person, oriented to place , oriented to time, oriented to situation, CN II-XII grossly intact. ABSENT: motor sensory deficit Psychiatric exam: PRESENT: appropriate affect, normal mood. ABSENT: homicidal ideation, suicidal ideation Skin exam: PRESENT: dry, intact, warm. ABSENT: cyanosis, rash Results Laboratory Results: 03/22/18 03:59 03/22/18 03:59 03/21/18 03/22/18 03/22/18 08:49 03:59 03:59 WBC 6.7 RBC 2.73 L Hgb 9.2 L Hct 24.2 L MCV 89 MCH 33.8 H MCHC 38.2 H RDW 13.9 Plt Count 33 L D Seg Neutrophils % Not Reportable Lymphocytes % Not Reportable Monocytes % Not Reportable Eosinophils % Not Reportable Basophils % Not Reportable Absolute Neutrophils Not Reportable Absolute Lymphocytes Not Reportable Absolute Monocytes Not Reportable Absolute Eosinophils Not Reportable Absolute Basophils Not Reportable Sodium 142.8 Potassium 4.2 Chloride 104 Carbon Dioxide 26 Anion Gap 13 BUN 18 Creatinine 0.51 L Est GFR ( Amer) > 60 Est GFR (Non-Af Amer) > 60 Glucose 131 H Calcium 9.4 Total Bilirubin 0.5 AST 17 ALT 25 Alkaline Phosphatase 62 Total Protein 6.1 L Albumin 3.5 Blood Type O NEGATIVE Impressions: Chest X-Ray 03/14/18 19:00 IMPRESSION: Chronic lung changes. No acute findings. Assessment & Plan - Diagnosis (1) Neutropenic fever Is this a current diagnosis for this admission?: Yes Plan: Resolved (2) Sepsis Qualifiers: Sepsis type: Pneumococcus Qualified Code(s): A40.3 - Sepsis due to Streptococcus pneumoniae Is this a current diagnosis for this admission?: Yes Plan: D/w ID in [facility], see her notes for full details but plan oral amoxicillin 1g po TID x 10 days, will d/c with that (3) AML (acute myeloblastic leukemia) Qualifiers: Leukemia Active/Remission status: without remission Qualified Code(s): C92.00 - Acute myeloblastic leukemia, not having achieved remission Is this a current diagnosis for this admission?: Yes Plan: BM recovering doing better, plan d/c w/ counts /, he will see me next week, will follow cmp weekly also (4) Thrombocytopenia Is this a current diagnosis for this admission?: Yes Plan: plt ct better, will need support as outpt (5) Anemia associated with chemotherapy Is this a current diagnosis for this admission?: Yes Plan: hb stable - Time Time Spent with patient: 35 or more minutes Disposition: long discussion w/ pt, ID and primary team today, >45 min in discussion/ coordination care
[2018-03-22] MEDS: NICOTINE 21 MG/24 HR PATCH.TD24 TD SCH (09:15)
[2018-03-22] MEDS: VALACYCLOVIR HCL 500 MG TABLET PO SCH (09:16)
[2018-03-22] MEDS: FLUCONAZOLE 100 MG TABLET PO SCH (09:16)
[2018-03-22] MEDS ORDERED: CEFTRIAXONE SODIUM 1,000 MG in NORMAL SALINE 100 ML IV ONE (12:00)
[2018-03-22] MEDS ORDERED: CEFTRIAXONE SODIUM 1,000 MG in DEXTROSE 5%-WATER 50 ML IV ONE (12:00)
--- NOTE | 2018-03-22 12:39 | PDOC DISCHARGE SUMMARY ---
General - Admit/Disc Date/PCP Admission Date/Primary Care Provider: 03/14/18 20:22 JUSTIN ROUSE MD Discharge Date: 03/22/18 - Discharge Diagnosis (1) Febrile neutropenia Is this a current diagnosis for this admission?: Yes (2) Pancytopenia Is this a current diagnosis for this admission?: Yes (3) Thrombocytopenia Is this a current diagnosis for this admission?: Yes (4) AML (acute myeloblastic leukemia) Is this a current diagnosis for this admission?: Yes (5) DVT prophylaxis Is this a current diagnosis for this admission?: Yes (6) Smoker Is this a current diagnosis for this admission?: Yes - Additional Information Resuscitation Status: Full Code Prescriptions: Amoxicillin 2 tab PO TID 10 Days #60 tab Home Medications: Valacyclovir HCl [Valacyclovir] 500 mg PO DAILY 03/14/18 Amoxicillin 2 tab PO TID 10 Days #60 tab 03/22/18 History of Present Illness History of Present Illness: GERDA NICK is a 63 year old male with hx of HTN/ Hyperlipidemia/Chronic smoker who was diagnosed with acute myeloblastic leukamia and is getting chemotherapy at [facility]. He just got the 3 rd cycle or Cytarabine and Daunorubicin and he started having fever on the day of presentation, associated with malaise. He denied cough, chest pain, nausea/vomiting, dysuria, frequency. On account of these, he came to ER and he was admitted for febrile neutropenia. Hospital Course Hospital Course: 63 year old who was admitted to [facility] for febrile neutropenia and Pancytopenia following completion of consolidative phase of chemotherapy for acute myeloblastic leukamia. He was initially started on Vancomycin and Cefepime and later switched to Rocephin following blood culture that grew streptococcus pneumoniae. The Moctezuma catheter was removed and he also had 2 units of PRBC and multiple transfusions of platelets. He was following closely on consult by hot stone setter/oncologist, Dr Rouse and we appreciate his input in the management of this pt. He was also reviewed by Dr Linda Copeland from [facility] ([facility] He had TTE that did not show any vegetations. His WBC has increased to 6.7 and hB?HCT was 9.2/24 and platelets has increased to 33. He is stable and will be discharged home today on Amoxicillin as per ID recommendation. He will follow up with Dr Rouse and Dr Pierce for transition of care within 1 week. Physical Exam Vital Signs: Temp Pulse Resp BP Pulse Ox 98.5 F 62 12 120/65 100 03/22/18 08:09 03/22/18 08:09 03/22/18 08:09 03/22/18 08:09 03/22/18 08:09 Intake & Output 03/21/18 03/22/18 03/23/18 06:59 06:59 06:59 Intake Total 2600 1586 Balance 2600 1586 Weight 68.6 kg 66.4 kg General appearance: PRESENT: no acute distress, cooperative, well-developed, well-nourished Head exam: PRESENT: atraumatic, normocephalic Eye exam: PRESENT: EOMI, PERRLA Ear exam: PRESENT: normal external ear exam, TM's normal bilaterally Mouth exam: PRESENT: moist, neck supple, tongue midline Respiratory exam: PRESENT: clear to auscultation henri, symmetrical Cardiovascular exam: PRESENT: +S1, +S2 Pulses: PRESENT: +2 pedal pulses bilateral GI/Abdominal exam: PRESENT: normal bowel sounds, soft Rectal exam: PRESENT: deferred Extremities exam: PRESENT: full ROM Musculoskeletal exam: PRESENT: ambulatory Neurological exam: PRESENT: alert, awake, oriented to person, oriented to place , oriented to time, CN II-XII grossly intact Psychiatric exam: PRESENT: normal mood Results Laboratory Results: 03/22/18 03:59 03/22/18 03:59 03/21/18 03/22/18 03/22/18 08:49 03:59 03:59 WBC 6.7 RBC 2.73 L Hgb 9.2 L Hct 24.2 L MCV 89 MCH 33.8 H MCHC 38.2 H RDW 13.9 Plt Count 33 L D Seg Neutrophils % Not Reportable Lymphocytes % Not Reportable Monocytes % Not Reportable Eosinophils % Not Reportable Basophils % Not Reportable Absolute Neutrophils Not Reportable Absolute Lymphocytes Not Reportable Absolute Monocytes Not Reportable Absolute Eosinophils Not Reportable Absolute Basophils Not Reportable Sodium 142.8 Potassium 4.2 Chloride 104 Carbon Dioxide 26 Anion Gap 13 BUN 18 Creatinine 0.51 L Est GFR ( Amer) > 60 Est GFR (Non-Af Amer) > 60 Glucose 131 H Calcium 9.4 Total Bilirubin 0.5 AST 17 ALT 25 Alkaline Phosphatase 62 Total Protein 6.1 L Albumin 3.5 Blood Type O NEGATIVE Impressions: Chest X-Ray 03/14/18 19:00 IMPRESSION: Chronic lung changes. No acute findings. Qualifiers - * PATIENT BEING DISCHARGED WITH ANY OF THE FOLLOWING DIAGNOSIS: No
[2018-03-22 13:01] VITALS: BP 97/58
== END 2018-03-22 14:45 | disposition home or self-care (01) | DRG 808 ==
LOC: ER 18:43 → EH 20:22 → 3W 22:11
PROVIDERS: ADMIT Internal Medicine; ATTEND Internal Medicine
PROC: 30233R1 Transfusion of Nonautologous Platelets into Peripheral Vein, Percutaneous Approach (ICD-10-PCS; principal; 2018-03-15)
PROC: 30233R1 Transfusion of Nonautologous Platelets into Peripheral Vein, Percutaneous Approach (ICD-10-PCS; 2018-03-16)
PROC: 02PY33Z Removal of Infusion Device from Great Vessel, Percutaneous Approach (ICD-10-PCS; 2018-03-16)
PROC: 30233R1 Transfusion of Nonautologous Platelets into Peripheral Vein, Percutaneous Approach (ICD-10-PCS; 2018-03-17)
PROC: 30233N1 Transfusion of Nonautologous Red Blood Cells into Peripheral Vein, Percutaneous Approach (ICD-10-PCS; 2018-03-18)
PROC: 30233R1 Transfusion of Nonautologous Platelets into Peripheral Vein, Percutaneous Approach (ICD-10-PCS; 2018-03-21)
DX: D70.9 Neutropenia, unspecified (principal); A40.0 Sepsis due to streptococcus, group A; C92.00 Acute myeloblastic leukemia, not having achieved remission; R50.81 Fever presenting with conditions classified elsewhere; I10 Essential (primary) hypertension; E78.00 Pure hypercholesterolemia, unspecified; F17.210 Nicotine dependence, cigarettes, uncomplicated; D64.81 Anemia due to antineoplastic chemotherapy; T45.1X5A Adverse effect of antineoplastic and immunosuppressive drugs, initial encounter; Z79.899 Other long term (current) drug therapy
CPT/HCPCS: 36415; 36430; 532; 71045; 80053; 80061; 80202; 81001; 82803; 83605; 85025; 85610; 85730; 86850; 86900; 86901; 86920; 87040; 87070; 87077; 87086; 87186; 93005; 93010; 93306; 99291; J0692; J0696; J2250; J2704; J2920; J2930; J3010; J3370; J3490; J7030; J7060; P9016; P9035; S0028